=== PATIENT | female | born 1965 | race Caucasian/White ===

== ENCOUNTER 2019-05-17 00:09 | Inpatient (IN) | payer BC ==
[2019-05-17] VITALS (9 sets, daily range): BP systolic 78–119; BP diastolic 29–59
[~2019-05-17] VITALS: Ht 165.1 cm; Wt 63.5 kg
--- NOTE | 2019-05-17 00:13 | NUR ---
DR ZARAGOZA at bedside for MSE.
[2019-05-17] MEDS ORDERED: IV NORMAL SALINE 1000 ML BAG IV ONE (00:15)
[2019-05-17] MEDS ORDERED: HALOPERIDOL LACTATE 5 MG/1 ML VIAL IV ONE (00:30)
[2019-05-17] MEDS ORDERED: HALOPERIDOL LACTATE 5 MG/1 ML VIAL ONE (00:37)
[2019-05-17 01:18] LABS: ETHANOL < 3 MG/DL (0-0)
[2019-05-17 01:24] LABS: WHITE BLOOD COUNT (AUTO) 11.6 K/UL (4.0-11.2)
[2019-05-17 01:25] LABS: HEMATOCRIT 24.1 % (37-47); HEMOGLOBIN 8.2 G/DL (12.0-16.0); MEAN CORPUSCULAR HEMOGLOBIN 35.2 UUG (27.0-31.0); MEAN CORPUSCULAR HGB CONC 34 g/dL (32.0-37.0); MEAN CORPUSCULAR VOLUME 103.7 FL (81.0-99.0); PLATELET COUNT (AUTO) 286 K/UL (150-450); RED BLOOD CELL COUNT(AUTO) 2.32 MIL/UL (4.2-5.4)
[2019-05-17 01:26] LABS: BASOPHILS # (AUTO) 0.1 K/uL (0.0-8.0); BASOPHILS % (AUTO) 0.8 % (0.0-2.0); EOSINOPHILS % (AUTO) 0.1 % (0.0-7.0); LYMPHOCYTES # (AUTO) 2.3 K/UL (0.8-4.8); LYMPHOCYTES % (AUTO) 20.2 % (20.5-51.5); MONOCYTES # (AUTO) 1.6 K/UL (0.1-1.30); MONOCYTES % (AUTO) 13.6 % (0.0-11.0); NEUTROPHILS # (AUTO) 7.6 K/UL (1.8-8.9); NEUTROPHILS % (AUTO) 65.3 % (38.5-71.5)
[2019-05-17] MEDS ORDERED: CLON0.5T4 PO (01:26)
[2019-05-17] MEDS ORDERED: HYDR-500 PO (01:26)
[2019-05-17] MEDS ORDERED: SPIR50TA5 PO (01:26)
[2019-05-17] MEDS ORDERED: LACT10SO PO (01:26)
[2019-05-17] MEDS ORDERED: FURO40TA5 PO (01:26)
[2019-05-17 01:27] LABS: THYROID STIMULATING HORMONE 1.005 mIU/mL (0.358-3.740)
[2019-05-17 01:43] LABS: CARBON DIOXIDE 21 mmol/L (21-32); CHLORIDE 108 mmol/L (98-107); POTASSIUM 5.6 mmol/L (3.5-5.1)
[2019-05-17] MEDS ORDERED: LACTULOSE 20 G/30 ML LIQUID UDC ONE ×2 (01:43→02:21)
[2019-05-17 01:44] LABS: BILIRUBIN,DIRECT 2.1 mg/dL (0.0-0.2); BILIRUBIN,TOTAL 4.6 mg/dL (0.1-1.0); CREATININE 1.7 mg/dL (0.6-1.3); GLUCOSE 132 mg/dL (74-106)
[2019-05-17 01:45] LABS: ACETAMINOPHEN < 2.0 ug/mL (10-30); ALANINE AMINOTRANSFERASE 28 U/L (14-59); ALKALINE PHOSPHATASE 147 U/L (50-136); ASPARTATE AMINOTRANSFERASE 43 U/L (15-37); TOTAL PROTEIN, SERUM 6.5 g/dL (6.4-8.2)
[2019-05-17] MEDS ORDERED: LACTULOSE 20 G/30 ML LIQUID UDC PO ONE (01:45)
[2019-05-17 01:47] LABS: UREA NITROGEN, BLOOD 96 mg/dL (7-20)
--- NOTE | 2019-05-17 01:47 | NUR ---
CRITICAL VALUE: BUN VALUE 96 BY NEELIMA (LAB)
[2019-05-17 01:55] LABS: *OCCULT BLOOD STOOL POSITIVE (NEGATIVE); *URINE HCG, QUAL NEGATIVE (NEGATIVE)
[2019-05-17 02:01] LABS: *CLARITY,URINE HAZY (CLEAR); *COLOR,URINE AMBER (YELLOW)
[2019-05-17 02:02] LABS: *BILIRUBIN,URIN 2+ (NEGATIVE); *BLOOD, URINE NEGATIVE (NEGATIVE); *KETONES,URINE TRACE (NEGATIVE); LEUKOCYTE ESTERASE ,URINE NEGATIVE (NEGATIVE); NITRITE, URINE NEGATIVE (NEGATIVE); UGLUCOSE NEGATIVE (NEGATIVE)
--- NOTE | 2019-05-17 02:02 | NUR ---
Pt sent down for CT
[2019-05-17 02:03] LABS: BACTERIA,URINE NONE SEEN /HPF (NONE SEEN); RBC,URINE NONE SEEN /HPF (0-3); SQUAMOUS EPITHELIAL CELL,UR FEW /HPF (NONE SEEN); URIC ACID CRYSTALS,URINE MODERATE /HPF (NONE SEEN); WBC,URINE NONE SEEN /HPF (0-3)
[2019-05-17 02:10] LABS: *AMPHETAMINE, URINE NEGATIVE (NEGATIVE); *BARBITURATE, URINE NEGATIVE (NEGATIVE); *CANNABINOID, URINE POSITIVE (NEGATIVE); *COCCAINE, URINE NEGATIVE (NEGATIVE); *OPIATE, URINE NEGATIVE (NEGATIVE); *PHENCYCLIDINE SCREEN,URINE NEGATIVE (NEGATIVE)
--- NOTE | 2019-05-17 02:12 | NUR ---
Pt back from CT, BP 101/60 HR 100 O2 97% RR 18
[2019-05-17] MEDS ORDERED: LACTULOSE 20 G/30 ML LIQUID UDC PR ONE (02:15)
[2019-05-17] MEDS ORDERED: PANTOPRAZOLE SODIUM IV 80 MG in IV DEXTROSE 5% 100 ML IV ONE (02:15)
[2019-05-17] MEDS ORDERED: PANTOPRAZOLE SODIUM 40 MG VIAL ONE (02:15)
[2019-05-17] MEDS ORDERED: IV D5/ 0.9% NACL 1,000 ML IV ONE (02:25)
[2019-05-17] MEDS ORDERED: ACETAMINOPHEN 325 MG TABLET PO PRN (02:45)
[2019-05-17] MEDS ORDERED: ONDANSETRON 4 MG/2 ML VIAL IV PRN (02:45)
[2019-05-17] MEDS ORDERED: Z GUARD REMEDY PASTE 57 GM TUBE TOP PRN (02:45)
[2019-05-17] MEDS ORDERED: MAGNESIUM HYDROXIDE 30 ML LIQUID UDC PO PRN (02:45)
[2019-05-17] MEDS ORDERED: HYDROCODONE/APAP 5-325MG TABLET PO PRN (02:45)
[2019-05-17] MEDS ORDERED: IV NS 1000 ML 1,000 ML IV SCH (02:45)
--- NOTE | 2019-05-17 03:03 | NUR ---
Pt. admitted to TELE UNIT , under care of Dr. SERVIN Belongs List completed. VSS, AFEBRILE. Pt appears comfortable and resting. No acute distress noted. Family at bedside.
--- NOTE | 2019-05-17 04:45 | NUR ---
Paged dr Barraza about Lactic acid value 2.4. Waiting for a call back.
--- NOTE | 2019-05-17 05:51 | NUR ---
Dr Barraza called back, notified of SBP below 80 and lactic acid 2.4. Ordered to bolus 1000ml NS
[2019-05-17] MEDS ORDERED: IV NS 1000 ML 1,000 ML IV ONE (06:00)
[2019-05-17] MEDS ORDERED: FUROSEMIDE 40 MG TABLET PO SCH (09:00)
[2019-05-17] MEDS ORDERED: SPIRONOLACTONE 50 MG TABLET PO SCH (09:00)
[2019-05-17] MEDS ORDERED: LACTULOSE 20 G/30 ML LIQUID UDC PR SCH (09:00)
[2019-05-17] MEDS ORDERED: CLONAZEPAM 0.5 MG TABLET PO SCH (09:00)
[2019-05-17] MEDS ORDERED: IRR STERIL WATER FOR IRR 700 ML, LACTULOSE 200 G PR ONE ×2 (09:00)
[2019-05-17 09:54] LABS: HEMATOCRIT 21.9 % (37-47)
[2019-05-17 09:55] LABS: HEMOGLOBIN 7.4 G/DL (12.0-16.0)
--- NOTE | 2019-05-17 10:00 | NUR ---
RECEIVED CRITICAL LABS FOR HGB OF 7.4 AND HCT 21.9. CALLED WITH ORDERS TO REPEAT HGB AND HCT.
[2019-05-17] MEDS ORDERED: ACETAMINOPHEN 650 MG SUPP.RECT RC PRN (11:30)
[2019-05-17 11:50] LABS: LIPASE 347 U/L (73-393)
[2019-05-17 11:54] LABS: IRON, SERUM 205 ug/dL (50-175)
[2019-05-17] MEDS: IV D5/ 0.9% NACL 1,000 ML IV PRN (12:00)
[2019-05-17] MEDS: PANTOPRAZOLE SODIUM 40 MG VIAL IV SCH (12:16)
[2019-05-17 12:32] LABS: POTASSIUM 4.3 mmol/L (3.5-5.1)
[2019-05-17 12:36] LABS: HEMOGLOBIN 7.1 G/DL (12.0-16.0)
[2019-05-17 12:39] LABS: HEMATOCRIT 20.9 % (37-47)
[2019-05-17 12:42] LABS: POTASSIUM 4.5 mmol/L (3.5-5.1)
[2019-05-17 12:43] LABS: CREATININE 1.3 mg/dL (0.6-1.3)
--- NOTE | 2019-05-17 13:00 | NUR ---
RECEIVED CRITICAL LABS FOR HGB OF 7.1 AND HCT 20.9. CALLED WITH ORDERS OF 1 UNIT OF PRBC.
[2019-05-17] MEDS ORDERED: FUROSEMIDE 20 MG/2 ML VIAL IV PRN (14:45)
[2019-05-17] MEDS: IRR STERIL WATER FOR IRR 700 ML, LACTULOSE 200 G PR SCH ×4 (14:58→22:59)
[2019-05-17 15:14] LABS: *CLARITY,URINE CLEAR (CLEAR); *COLOR,URINE DARK YELLOW (YELLOW)
[2019-05-17 15:15] LABS: *BILIRUBIN,URIN NEGATIVE (NEGATIVE); *BLOOD, URINE 1+ (NEGATIVE); *KETONES,URINE NEGATIVE (NEGATIVE); LEUKOCYTE ESTERASE ,URINE NEGATIVE (NEGATIVE); NITRITE, URINE NEGATIVE (NEGATIVE); UGLUCOSE NEGATIVE (NEGATIVE)
[2019-05-17 15:33] LABS: *CREATININE,URINE 96.4 mg/dL (30-125)
[2019-05-17 15:43] LABS: BACTERIA,URINE FEW /HPF (NONE SEEN); MUCUS,URINE FEW /LPF (0-FEW); SQUAMOUS EPITHELIAL CELL,UR MODERATE /HPF (NONE SEEN); WBC,URINE 0-3 /HPF (0-3)
--- NOTE | 2019-05-17 18:14 | NUR ---
PATIENT IN BED , MORE ALERT, WILL CONTINUE TO MONITOR. IV INTACT AND PATENT . KEPT CLEAN AND DRY AT ALL TIMES. SAFETY AND COMFORT PROVIDED. WILL CONTINUE TO MONITOR.
--- NOTE | 2019-05-17 18:55 | NUR ---
CONTINUE TO WAIT FOR THE BLOOD FOR BLOOD TRANSFUSION FROM LAB.
--- NOTE | 2019-05-17 21:10 | NUR ---
Blood transfusion started at 2050, no A/R noted, VS WNL, no SOB noted, BT tolerated. Will continue to monitor
[2019-05-18 00:06] VITALS: BP 121/55
--- NOTE | 2019-05-18 00:10 | NUR ---
1 unit of PRBC transfused, no A/R noted. VS WNL, no SOB noted. Will continue to monitor
[2019-05-18 00:16] VITALS: BP 121/55
[2019-05-18 04:54] VITALS: BP 92/52
[2019-05-18] MEDS: IV D5/ 0.9% NACL 1,000 ML IV PRN ×2 (05:46→18:53)
[2019-05-18] MEDS: IRR STERIL WATER FOR IRR 700 ML, LACTULOSE 200 G PR SCH ×2 (05:46)
[2019-05-18 06:35] LABS: RED BLOOD CELL COUNT(AUTO) 2.27 MIL/UL (4.2-5.4); WHITE BLOOD COUNT (AUTO) 12.6 K/UL (4.0-11.2)
[2019-05-18 06:36] LABS: BASOPHILS % (AUTO) 1.2 % (0.0-2.0); EOSINOPHILS % (AUTO) 1.8 % (0.0-7.0); LYMPHOCYTES # (AUTO) 3.1 K/UL (0.8-4.8); LYMPHOCYTES % (AUTO) 24.9 % (20.5-51.5); MEAN CORPUSCULAR HEMOGLOBIN 35.4 UUG (27.0-31.0); MEAN CORPUSCULAR HGB CONC 34 g/dL (32.0-37.0); MEAN CORPUSCULAR VOLUME 105.5 FL (81.0-99.0); MONOCYTES # (AUTO) 2.2 K/UL (0.1-1.30); MONOCYTES % (AUTO) 17.1 % (0.0-11.0); NEUTROPHILS # (AUTO) 6.9 K/UL (1.8-8.9); PLATELET COUNT (AUTO) 250 K/UL (150-450)
[2019-05-18 06:37] LABS: BASOPHILS # (AUTO) 0.2 K/uL (0.0-8.0); EOSINOPHILS # (AUTO) 0.2 K/uL (0.0-0.7)
--- NOTE | 2019-05-18 06:45 | NUR ---
Patient noted more alert this morning asking why she's in the hosp and who brought her here. Re-oriented patient regarding his condition. Lactulose enema given as ordered noted w/ 4 loose BM this shift. All needs attended. Will endorse accordingly
--- NOTE | 2019-05-18 07:30 | NUR ---
Awake, alert, oriented to name, slow in response, but able to verbalized needs appropriately. She's asking for water, will clarify diet. IVF infusing well. Bed alarm on
[2019-05-18] MEDS: PANTOPRAZOLE SODIUM 40 MG VIAL IV SCH (08:56)
[2019-05-18 09:02] LABS: BILIRUBIN,TOTAL 5.9 mg/dL (0.2-1.0); PHOSPHOROUS 5.3 mg/dL (2.5-4.9); POTASSIUM 3.5 mmol/L (3.5-5.1)
[2019-05-18 09:06] LABS: MAGNESIUM 2.1 mg/dL (1.8-2.4); TOTAL PROTEIN, SERUM 6.3 g/dL (6.4-8.2)
[2019-05-18 11:11] VITALS: BP 99/49
--- NOTE | 2019-05-18 11:30 | NUR ---
Spoke with Dr. Gallo informed of patient's condition, patient with dark brown soft stool. Lactulose changed to po. Ultrasound of the abdomen done no fluid/ascites noted, paracentesis not done. Started on clear liquids diet. Assistance during feeding, noted patient may fall asleep and aspiration risk.
[2019-05-18] MEDS: RIFAXIMIN 550 MG TABLET PO SCH ×2 (12:24→20:40)
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
[2019-05-18 13:08] LABS: BASOPHILS % (MANUAL) 1 % (0-2); EOSINOPHILS % (MANUAL) 2 % (0-8); LYMPHOCYTES % (MANUAL) 29 % (20-40); METAMYELOCYTES % 1 % (0-1); MONOCYTES % (MANUAL) 13 % (2-10); NEUTROPHILS % (MANUAL) 54 % (42-75)
[2019-05-18] MEDS: LACTULOSE 20 G/30 ML LIQUID UDC PO SCH ×2 (15:00→21:00)
[2019-05-18 15:11] VITALS: BP 101/51
--- NOTE | 2019-05-18 15:50 | NUR ---
Awake, but confused and restless. Dr. Yen seen patient with orders. Ativan to be given
[2019-05-18] MEDS: THIAMINE HCL 100 MG TABLET PO SCH (16:17)
[2019-05-18] MEDS: FOLIC ACID 1 MG TABLET PO SCH (16:17)
[2019-05-18] MEDS: LORAZEPAM 2 MG/1 ML VIAL IV PRN ×2 (16:17→23:04)
[2019-05-18] MEDS: MULTIVITAMINS,THERAPEUTIC TABLET PO SCH (16:17)
--- NOTE | 2019-05-18 18:00 | NUR ---
Eating dinner with family at bedside. Free from fall or injury.
--- NOTE | 2019-05-18 20:00 | NUR ---
Received patient in bed asleep but arousable. No c/o pain at this time. F/C intact draining qiana color urine. Safety measures observed. Call light in reach
[2019-05-18 20:08] VITALS: BP 112/70
[2019-05-18] MEDS: MORPHINE SULFATE 2 MG/1 ML DISP.SYRIN IV PRN (23:47)
[2019-05-19] VITALS: BP 110/62
[2019-05-19 04:00] VITALS: BP 105/52
[2019-05-19] MEDS: LACTULOSE 20 G/30 ML LIQUID UDC PO SCH ×3 (05:47→21:09)
[2019-05-19 05:55] LABS: BASOPHILS # (AUTO) 0.1 K/uL (0.0-8.0); BASOPHILS % (AUTO) 0.9 % (0.0-2.0); EOSINOPHILS # (AUTO) 0.4 K/uL (0.0-0.7); EOSINOPHILS % (AUTO) 3.4 % (0.0-7.0); HEMOGLOBIN 8.3 g/dL (10.9-14.3); LYMPHOCYTES # (AUTO) 4.4 K/uL (20.0-40.0); LYMPHOCYTES % (AUTO) 40.9 % (20.5-51.5); MEAN CORPUSCULAR HEMOGLOBIN 36.4 uug (24.7-32.8); MEAN CORPUSCULAR HGB CONC 34 g/dL (32.3-35.6); MEAN CORPUSCULAR VOLUME 105.9 fL (75.5-95.3); MONOCYTES # (AUTO) 1.9 K/uL (2.0-10.0); MONOCYTES % (AUTO) 17.7 % (0.0-11.0); NEUTROPHILS % (AUTO) 37.1 % (38.5-71.5); PLATELET COUNT (AUTO) 250 K/uL (179-408); WHITE BLOOD COUNT (AUTO) 10.8 K/uL (3.8-11.8)
--- NOTE | 2019-05-19 06:10 | NUR ---
Patient AAOx1, able to make needs known. Inn acute distress. Denies any further back pain. No SOB. IV site on left hand intact and patent. IVF infusing. NSR on tele at 95/min. Peck catheter intact and draining via gravity. Safety measure maintained and call hogan within reached.
[2019-05-19 06:12] LABS: BILIRUBIN,TOTAL 3.7 mg/dL (0.2-1.0); CREATININE 0.8 mg/dL (0.6-1.3); MAGNESIUM 1.6 mg/dL (1.8-2.4); PHOSPHOROUS 3.4 mg/dL (2.5-4.9); TOTAL PROTEIN, SERUM 6.2 g/dL (6.4-8.2)
[2019-05-19 06:29] LABS: RED BLOOD CELL COUNT(AUTO) 2.27 MIL/uL (3.63-4.92)
[2019-05-19 07:33] LABS: EOSINOPHILS % (MANUAL) 7 % (0-8); LYMPHOCYTES % (MANUAL) 35 % (20-40); MONOCYTES % (MANUAL) 13 % (2-10); NEUTROPHILS % (MANUAL) 45 % (42-75)
--- NOTE | 2019-05-19 07:58 | NUR ---
Received pt. resting in bed pt. alert oriented x3 able to make needs known. Pt. has IV in L hand 22 gauge intact patent running prescribed fluids. Pt. on tele monitor HR 88. Pt. has godfrey catheter in draining. Pt. states she does not want her R wrist wound changed with silverdein and bordered gauze. She says her people will bring in her own treatment she received. Educated pt. on risks and benefits. Pt. still refused. Safety measures in place. call light within reach. Will continue to monitor pt.
[2019-05-19] MEDS: THIAMINE HCL 100 MG TABLET PO SCH (08:04)
[2019-05-19] MEDS: FOLIC ACID 1 MG TABLET PO SCH (08:04)
[2019-05-19] MEDS: PANTOPRAZOLE SODIUM 40 MG VIAL IV SCH (08:04)
[2019-05-19] MEDS: RIFAXIMIN 550 MG TABLET PO SCH ×2 (08:04→20:14)
[2019-05-19] MEDS: MULTIVITAMINS,THERAPEUTIC TABLET PO SCH (08:04)
[2019-05-19] MEDS: SILVER SULFADIAZINE 1% CREAM 50 GM TP SCH ×2 (08:15→14:28)
[2019-05-19] MEDS ORDERED: MAGNESIUM SULFATE/D5W 100 ML IV SCH (09:30)
[2019-05-19] MEDS: IV D5/ 0.9% NACL 1,000 ML IV PRN (10:11)
[2019-05-19] MEDS ORDERED: MAGNESIUM OXIDE 400 MG TABLET PO ONE (10:30)
[2019-05-19] MEDS: POTASSIUM CHLORIDE 50 ML IV SCH ×2 (11:47→13:44)
[2019-05-19 11:58] LABS: BASOPHILS # (AUTO) 0.1 K/uL (0.0-8.0); BASOPHILS % (AUTO) 1.1 % (0.0-2.0); EOSINOPHILS # (AUTO) 0.4 K/uL (0.0-0.7); EOSINOPHILS % (AUTO) 3.6 % (0.0-7.0); HEMATOCRIT 24.6 % (31.2-41.9); HEMOGLOBIN 8.3 g/dL (10.9-14.3); LYMPHOCYTES # (AUTO) 3.9 K/uL (20.0-40.0); LYMPHOCYTES % (AUTO) 35.2 % (20.5-51.5); MEAN CORPUSCULAR HEMOGLOBIN 35.8 uug (24.7-32.8); MEAN CORPUSCULAR HGB CONC 34 g/dL (32.3-35.6); MEAN CORPUSCULAR VOLUME 105.9 fL (75.5-95.3); MONOCYTES # (AUTO) 2.2 K/uL (2.0-10.0); MONOCYTES % (AUTO) 19.8 % (0.0-11.0); NEUTROPHILS # (AUTO) 4.4 K/uL (1.8-8.9); NEUTROPHILS % (AUTO) 40.3 % (38.5-71.5); PLATELET COUNT (AUTO) 254 K/uL (179-408)
[2019-05-19 12:00] LABS: RED BLOOD CELL COUNT(AUTO) 2.32 MIL/uL (3.63-4.92)
[2019-05-19 12:02] LABS: NEUTROPHILS % (MANUAL) 0 % (42-75)
[2019-05-19 12:03] VITALS: BP 109/64
[2019-05-19] MEDS ORDERED: POTASSIUM CHLORIDE 50 ML IV SCH (14:00)
--- NOTE | 2019-05-19 14:28 | NUR ---
Pt. agreed to wound care change but wanted to use her own bandages. Cleaned w NS, dried, applied prescribed cream, and covered with pt.'s own bandage.
[2019-05-19 15:09] VITALS: BP 109/61
[2019-05-19] MEDS: MORPHINE SULFATE 2 MG/1 ML DISP.SYRIN IV PRN (15:17)
[2019-05-19] MEDS ORDERED: POTASSIUM CHLORIDE 20 MEQ TAB.PRT.SR PO ONE ×2 (15:30→16:00)
--- NOTE | 2019-05-19 15:30 | NUR ---
Pt. reported burning at IV site from K. Administered 2 bags of K. Asked SWIM COACH harshad for PO K. SWIM COACH Agreed. Put in new order. Will administer PO K
[2019-05-19 20:00] VITALS: BP 110/70
[2019-05-19] MEDS: LORAZEPAM 2 MG/1 ML VIAL IV PRN (21:57)
[2019-05-20 00:33] VITALS: BP 120/74
[2019-05-20] MEDS: IV D5/ 0.9% NACL 1,000 ML IV PRN (03:35)
[2019-05-20 04:00] VITALS: BP 105/61
[2019-05-20] MEDS: LACTULOSE 20 G/30 ML LIQUID UDC PO SCH (05:36)
--- NOTE | 2019-05-20 05:40 | NUR ---
Pt remains up in bed, AxO x3, easily arousable. Continuous IVF running. F/C in place. SR on monitor with HR 91. No acute distress noted. Pt refused wound treatment order and insisted on using her own wound care treatment and bandages. Discussed the risks and benefits of wound care, but pt still refused. Cleansed with NS, pat dry, hydrogen peroxide, prescribed cream applied, and placed pt's own bandage for protection. Scant amount of green to yellow drainage noted. Dressing clean and intact. Will continue plan of care.
[2019-05-20 07:50] LABS: BASOPHILS # (AUTO) 0.1 K/uL (0.0-8.0); EOSINOPHILS # (AUTO) 0.4 K/uL (0.0-0.7); EOSINOPHILS % (AUTO) 4.6 % (0.0-7.0); LYMPHOCYTES % (AUTO) 31.7 % (20.5-51.5); MEAN CORPUSCULAR HEMOGLOBIN 36.7 uug (24.7-32.8); MEAN CORPUSCULAR HGB CONC 35 g/dL (32.3-35.6); MEAN CORPUSCULAR VOLUME 106.2 fL (75.5-95.3); MONOCYTES # (AUTO) 1.8 K/uL (2.0-10.0); MONOCYTES % (AUTO) 19.2 % (0.0-11.0); NEUTROPHILS # (AUTO) 4.2 K/uL (1.8-8.9); NEUTROPHILS % (AUTO) 43.5 % (38.5-71.5); PLATELET COUNT (AUTO) 256 K/uL (179-408); WHITE BLOOD COUNT (AUTO) 9.6 K/uL (3.8-11.8)
[2019-05-20 07:54] LABS: RED BLOOD CELL COUNT(AUTO) 2.16 MIL/uL (3.63-4.92)
[2019-05-20 08:01] LABS: BILIRUBIN,TOTAL 2.5 mg/dL (0.2-1.0); CREATININE 0.7 mg/dL (0.6-1.3); MAGNESIUM 1.5 mg/dL (1.8-2.4); PHOSPHOROUS 3.4 mg/dL (2.5-4.9); POTASSIUM 3.3 mmol/L (3.5-5.1); TOTAL PROTEIN, SERUM 5.9 g/dL (6.4-8.2)
[2019-05-20] MEDS: THIAMINE HCL 100 MG TABLET PO SCH (08:12)
[2019-05-20] MEDS: SILVER SULFADIAZINE 1% CREAM 50 GM TP SCH (08:12)
[2019-05-20] MEDS: PANTOPRAZOLE SODIUM 40 MG VIAL IV SCH (08:12)
[2019-05-20] MEDS: FOLIC ACID 1 MG TABLET PO SCH (08:12)
[2019-05-20] MEDS: MULTIVITAMINS,THERAPEUTIC TABLET PO SCH (08:12)
[2019-05-20] MEDS: RIFAXIMIN 550 MG TABLET PO SCH (08:12)
[2019-05-20 10:38] LABS: EOSINOPHILS % (MANUAL) 3 % (0-8); LYMPHOCYTES % (MANUAL) 37 % (20-40); MONOCYTES % (MANUAL) 19 % (2-10); NEUTROPHILS % (MANUAL) 41 % (42-75)
[2019-05-20] MEDS ORDERED: LACTULOSE 20 G/30 ML LIQUID UDC PO SCH (11:15)
[2019-05-20 11:40] VITALS: BP 107/67
[2019-05-20] MEDS ORDERED: THIA100T13 PO (12:20)
[2019-05-20] MEDS ORDERED: Folic Acid PO (12:20)
[2019-05-20] MEDS ORDERED: MULT-24 PO (12:20)
[2019-05-20] MEDS ORDERED: PANT40TA2 PO (12:20)
[2019-05-20] MEDS ORDERED: LACT10SO7 PO (12:20)
[2019-05-20] MEDS ORDERED: RIFA550T PO (12:20)
[2019-05-20] MEDS ORDERED: POTASSIUM CHLORIDE 20 MEQ TAB.PRT.SR PO ONE (12:30)
[2019-05-20] MEDS ORDERED: MAGNESIUM OXIDE 400 MG TABLET PO ONE (12:30)
--- NOTE | 2019-05-20 12:41 | NUR ---
Peck catheter removed per Suki JACOBS.
--- NOTE | 2019-05-20 13:59 | NUR ---
Patient ambulatory, no distress noted. IV access and ID band removed. Discharge instructions reviewed with patient and son Tien at bedside, verbalized understanding. Medication scripts sent electronically to [facility] (preferred pharmacy) in [place]. Wound photo of right wrist taken and placed in paper chart. Wound care done today. Peck catheter removed. No s/s of bleeding, H&H stable. Instructed to follow up with GI as outpatient. Patient states she already has an appointment the following and will follow up for EGD. Magnesium and potassium replaced. Belongings accounted for.
== END 2019-05-20 14:00 | disposition home or self-care (01) | DRG 432 ==
LOC: ER 00:09 → TELE3 02:59
PROVIDERS: ADMIT Family Medicine; ATTEND Internal Medicine
PROC: 30233N1 Transfusion of Nonautologous Red Blood Cells into Peripheral Vein, Percutaneous Approach (ICD-10-PCS; principal; 2019-05-17)
DX: K70.40 Alcoholic hepatic failure without coma (principal); N17.0 Acute kidney failure with tubular necrosis; E43 Unspecified severe protein-calorie malnutrition; D62 Acute posthemorrhagic anemia; E87.2 Acidosis; K76.6 Portal hypertension; J98.11 Atelectasis; K92.1 Melena; E87.5 Hyperkalemia; Y90.0 Blood alcohol level of less than 20 mg/100 ml; E86.0 Dehydration; F10.20 Alcohol dependence, uncomplicated; K70.31 Alcoholic cirrhosis of liver with ascites; D72.829 Elevated white blood cell count, unspecified; E77.8 Other disorders of glycoprotein metabolism; E87.6 Hypokalemia; F17.210 Nicotine dependence, cigarettes, uncomplicated; F12.90 Cannabis use, unspecified, uncomplicated; G31.9 Degenerative disease of nervous system, unspecified; R00.0 Tachycardia, unspecified; R40.2142 Coma scale, eyes open, spontaneous, at arrival to emergency department; R40.2242 Coma scale, best verbal response, confused conversation, at arrival to emergency department; R40.2362 Coma scale, best motor response, obeys commands, at arrival to emergency department
CPT/HCPCS: 36415; 70030-TC; 70450; 71045; 76705; 80307; 83550; 83605; 83690; 83735; 84100; 84132; 84300; 84443; 84703; 85018; 85025; 85730; 86850; 86900; 86901; 86920; 87040; 93005; A4217; A4663; C1758; C9113; G0378; G0480; G0480-TC; J1630; J1940; J2060; J2270; J3475; J3480; J7030; J7042; J7050; J7060; P9016-BL; P9021

== ENCOUNTER 2019-05-20 21:21 | Inpatient (IN) | payer BC ==
[~2019-05-20] VITALS: Ht 170.2 cm; Wt 86.6 kg
[~2019-05-20 21:21] MED LIST: CLON0.5T4 PO; FURO40TA5 PO; Folic Acid PO; HYDR-500 PO; LACT10SO PO; LACT10SO7 PO; MULT-24 PO; PANT40TA2 PO; RIFA550T PO; SPIR50TA5 PO; THIA100T13 PO
--- NOTE | 2019-05-20 21:35 | NUR ---
patient brought in from home. Patient was brought in by and son who is at bedside. per family, patient has been confused and unsteady. Family noted that patient has had a change in condition with altered mental status.
[2019-05-20 22:16] LABS: BASOPHILS # (AUTO) 0.1 K/uL (0.0-8.0); BASOPHILS % (AUTO) 0.9 % (0.0-2.0); EOSINOPHILS # (AUTO) 0.2 K/uL (0.0-0.7); EOSINOPHILS % (AUTO) 1.4 % (0.0-7.0); HEMATOCRIT 27.7 % (31.2-41.9); HEMOGLOBIN 9.2 g/dL (10.9-14.3); LYMPHOCYTES # (AUTO) 3.2 K/uL (20.0-40.0); LYMPHOCYTES % (AUTO) 22.1 % (20.5-51.5); MEAN CORPUSCULAR HEMOGLOBIN 35.4 uug (24.7-32.8); MEAN CORPUSCULAR HGB CONC 33 g/dL (32.3-35.6); MEAN CORPUSCULAR VOLUME 107.1 fL (75.5-95.3); MONOCYTES # (AUTO) 2.5 K/uL (2.0-10.0); MONOCYTES % (AUTO) 17.1 % (0.0-11.0); NEUTROPHILS # (AUTO) 8.5 K/uL (1.8-8.9); NEUTROPHILS % (AUTO) 58.5 % (38.5-71.5); PLATELET COUNT (AUTO) 337 K/uL (179-408); RED BLOOD CELL COUNT(AUTO) 2.59 MIL/uL (3.63-4.92); WHITE BLOOD COUNT (AUTO) 14.6 K/uL (3.8-11.8)
[2019-05-20 22:33] LABS: CARBON DIOXIDE 19 mmol/L (21-32); CHLORIDE 106 mmol/L (98-107); CREATININE 0.9 mg/dL (0.6-1.3); GLUCOSE 98 mg/dL (74-106); UREA NITROGEN, BLOOD 16 mg/dL (7-18)
[2019-05-20 22:46] LABS: ETHANOL < 3 MG/DL (0-0)
[2019-05-20 22:50] LABS: ALANINE AMINOTRANSFERASE 41 U/L (14-59); ALKALINE PHOSPHATASE 114 U/L (50-136); ASPARTATE AMINOTRANSFERASE 54 U/L (15-37); BILIRUBIN,DIRECT 1.5 mg/dL (0.0-0.2); BILIRUBIN,TOTAL 3.6 mg/dL (0.2-1.0); TOTAL PROTEIN, SERUM 7.3 g/dL (6.4-8.2)
--- NOTE | 2019-05-20 22:50 | NUR ---
called [facility] for panel call.
[2019-05-20 22:52] LABS: BAND % (MANUAL) 1 % (0-10); EOSINOPHILS % (MANUAL) 1 % (0-8); LYMPHOCYTES % (MANUAL) 29 % (20-40); MONOCYTES % (MANUAL) 12 % (2-10); NEUTROPHILS % (MANUAL) 57 % (42-75)
--- NOTE | 2019-05-20 23:07 | NUR ---
urine sent to lab. Dr. Baldwin on the phone with REYNALDO Perez
[2019-05-20] MEDS ORDERED: LORAZEPAM 2 MG/1 ML VIAL ONE (23:12)
[2019-05-20] MEDS ORDERED: Z GUARD REMEDY PASTE 57 GM TUBE TOP PRN (23:15)
[2019-05-20] MEDS ORDERED: LORAZEPAM 2 MG/1 ML VIAL IV ONE (23:15)
[2019-05-20] MEDS ORDERED: ONDANSETRON 4 MG/2 ML VIAL IV PRN (23:15)
[2019-05-20] MEDS ORDERED: MAGNESIUM HYDROXIDE 30 ML LIQUID UDC PO PRN (23:15)
[2019-05-20 23:19] LABS: *BLOOD, URINE 2+ (NEGATIVE); *COLOR,URINE YELLOW (YELLOW); *KETONES,URINE TRACE (NEGATIVE); *UROBILINOGEN,URINE 0.2 E.U./dl (NORMAL); LEUKOCYTE ESTERASE ,URINE 1+ (NEGATIVE); NITRITE, URINE POSITIVE (NEGATIVE); UGLUCOSE NEGATIVE (NEGATIVE)
[2019-05-20 23:21] LABS: *BILIRUBIN,URIN 1+ (NEGATIVE); *CLARITY,URINE SLIGHTLY CLOUDY (CLEAR)
--- NOTE | 2019-05-20 23:24 | NUR ---
patient taken down for CT
--- NOTE | 2019-05-20 23:29 | NUR ---
gave report to Mikel Crooks.
[2019-05-20 23:35] LABS: *AMPHETAMINE, URINE NEGATIVE (NEGATIVE); *BARBITURATE, URINE NEGATIVE (NEGATIVE); *CANNABINOID, URINE NEGATIVE (NEGATIVE); *COCCAINE, URINE NEGATIVE (NEGATIVE); *OPIATE, URINE NEGATIVE (NEGATIVE); *PHENCYCLIDINE SCREEN,URINE NEGATIVE (NEGATIVE)
[2019-05-20 23:43] LABS: BACTERIA,URINE MANY /HPF (NONE SEEN); RBC,URINE 20-50 /HPF (0-3); SQUAMOUS EPITHELIAL CELL,UR MANY /HPF (NONE SEEN); WBC,URINE 80-100 /HPF (0-3)
[2019-05-21] MEDS ORDERED: CEFTRIAXONE 1 G VIAL IM SCH
--- NOTE | 2019-05-21 00:14 | NUR ---
patient transferred to tele unit via [place] with RN Lis Stevenson. patient in stbale condition for transfer.
[2019-05-21] MEDS: IV NS 1000 ML 1,000 ML IV PRN ×2 (00:18→22:44)
[2019-05-21] MEDS ORDERED: VANCOMYCIN IV 1,000 MG in IV DEXTROSE 5% 250 ML IV SCH (00:30)
--- NOTE | 2019-05-21 00:30 | NUR ---
Received patient from ED via gurney accompanied by Donna, ED RN and patient's and son. Patient transferred to bed safely and made comfortable. Noted patient is alert and oriented x 2. Patient kept verbalizing that she wants to go home and does not want to stay in the hospital, her and son explained to her that she needs to stay in the hospital tonight. Noted with IV access at the left AC, patent and intact. Will keep NPO as ordered. Will continue to monitor.
[2019-05-21] MEDS ORDERED: CEFTRIAXONE /D5W 50ML IVPB **ER PYXIS IV ONE (00:40)
[2019-05-21] MEDS ORDERED: PIPERACILLIN/TAZOBACTAM/D5W 100 ML IV ONE (00:41)
[2019-05-21] MEDS: ACETAMINOPHEN 325 MG TABLET PO PRN ×2 (00:49→20:14)
[2019-05-21] MEDS ORDERED: VANCOMYCIN IV 200 ML ONE (01:00)
[2019-05-21] MEDS: PIPERACILLIN SODIUM/TAZOBACTAM 3.375 G in IV DEXTROSE 5% 50 ML IV SCH ×5 (01:36→23:04)
[2019-05-21 01:41] VITALS: BP 114/57
[2019-05-21 04:48] VITALS: BP 95/55
--- NOTE | 2019-05-21 05:51 | NUR ---
Patient slept well throughout the night. Alert and oriented x 2. Noted had a febrile episode last night, prior to starting IV antibiotic, latest temperature is 99.6. Attempted this morning to change dressing and take a photo of wound on right wrist, however patient still refused. No complaints made. No other untoward events noted. Will endorse accordingly.
[2019-05-21 06:35] LABS: CREATININE 0.7 mg/dL (0.6-1.3); MAGNESIUM 1.5 mg/dL (1.8-2.4); PHOSPHOROUS 3.6 mg/dL (2.5-4.9); POTASSIUM 3.4 mmol/L (3.5-5.1)
[2019-05-21 06:41] LABS: BASOPHILS # (AUTO) 0.1 K/uL (0.0-8.0); EOSINOPHILS # (AUTO) 0.3 K/uL (0.0-0.7); MONOCYTES % (AUTO) 20.1 % (0.0-11.0)
[2019-05-21 06:42] LABS: BASOPHILS % (AUTO) 0.6 % (0.0-2.0); EOSINOPHILS % (AUTO) 2.3 % (0.0-7.0); HEMATOCRIT 21.7 % (31.2-41.9); LYMPHOCYTES # (AUTO) 3.4 K/uL (20.0-40.0); LYMPHOCYTES % (AUTO) 29.1 % (20.5-51.5); MEAN CORPUSCULAR HEMOGLOBIN 35.4 uug (24.7-32.8); MEAN CORPUSCULAR HGB CONC 34 g/dL (32.3-35.6); MEAN CORPUSCULAR VOLUME 104.8 fL (75.5-95.3); MONOCYTES # (AUTO) 2.4 K/uL (2.0-10.0); NEUTROPHILS # (AUTO) 5.7 K/uL (1.8-8.9); NEUTROPHILS % (AUTO) 47.9 % (38.5-71.5); PLATELET COUNT (AUTO) 252 K/uL (179-408); WHITE BLOOD COUNT (AUTO) 11.8 K/uL (3.8-11.8)
[2019-05-21 06:44] LABS: THYROID STIMULATING HORMONE 1.596 mIU/mL (0.358-3.740)
[2019-05-21 06:51] LABS: HEMOGLOBIN 7.3 g/dL (10.9-14.3); RED BLOOD CELL COUNT(AUTO) 2.07 MIL/uL (3.63-4.92)
[2019-05-21] MEDS ORDERED: PANTOPRAZOLE SODIUM 40 MG VIAL IV SCH (09:00)
[2019-05-21] MEDS ORDERED: Medication Not On Formulary EA ([Folic Acid] 1 MG) PO SCH (09:00)
[2019-05-21] MEDS: FOLIC ACID 1 MG TABLET PO SCH (09:10)
[2019-05-21] MEDS: PANTOPRAZOLE SODIUM 40 MG TABLET.DR PO SCH (09:10)
[2019-05-21] MEDS: MULTIVITAMINS,THERAPEUTIC TABLET PO SCH (09:10)
[2019-05-21] MEDS: LACTULOSE 20 G/30 ML LIQUID UDC PO SCH ×2 (09:11→17:23)
[2019-05-21 09:13] LABS: EOSINOPHILS % (MANUAL) 3 % (0-8); NEUTROPHILS % (MANUAL) 48 % (42-75)
[2019-05-21 09:14] LABS: LYMPHOCYTES % (MANUAL) 32 % (20-40); MONOCYTES % (MANUAL) 17 % (2-10)
[2019-05-21] MEDS: RIFAXIMIN 550 MG TABLET PO SCH ×2 (09:17→20:13)
[2019-05-21] MEDS: THIAMINE HCL 100 MG TABLET PO SCH (09:17)
--- NOTE | 2019-05-21 09:21 | NUR ---
Clinical pharmacy note(Vancomycin dosing per pharmacy) Subjective: To start Vancomycin dosing on this patient for suspected infection(spiked fever, catheter associated UTI per ER note) Objective: BUN/Scr 15/0.7 WBC 11.8 Temp 101.4 Ht 170.18cm Wt 71.214kg Assessment/Plan: Patient had Vancomycin 1 gram today at 0208(first dose). Will continue Vancomycin 1 garm IV q11hrs, starting today at 1300 and draw trough by 4th dose(ordered for tomorrow at 1030)for expected trough around 15. Will follow the level for further dosing.
[2019-05-21] MEDS ORDERED: RIFAXIMIN 550 MG TABLET PO SCH (11:15)
[2019-05-21 11:19] VITALS: BP 91/58
--- NOTE | 2019-05-21 11:30 | NUR ---
seen by dr mensah, spoke with the family regarding patient status. , agreed with plan of care.
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
[2019-05-21] MEDS: VANCOMYCIN IV 1,000 MG in IV DEXTROSE 5% 250 ML IV SCH ×2 (13:12→23:46)
[2019-05-21] MEDS ORDERED: POTASSIUM CHLORIDE 20 MEQ TAB.PRT.SR PO ONE (13:45)
[2019-05-21] MEDS: MAGNESIUM SULFATE/D5W 100 ML IV SCH ×2 (15:01→16:58)
[2019-05-21 15:27] VITALS: BP 102/58
--- NOTE | 2019-05-21 16:00 | NUR ---
tolerated antibiotic well
--- NOTE | 2019-05-21 18:48 | NUR ---
family in , concerned of patient status, emotional support [id number]. patient resting well. less agitated as day progresses, cooperative with med intake
--- NOTE | 2019-05-21 19:20 | NUR ---
Received pt on bed. Pt confused. Safety and comfort provided. Will continue to monitor.
[2019-05-21 20:11] VITALS: BP 115/64
[2019-05-21] MEDS: SILVER SULFADIAZINE 1% CREAM 50 GM TP SCH (20:13)
--- NOTE | 2019-05-21 22:23 | NUR ---
Talked with the son regarding update on her mother's condition. Pt confused. Safety and comfort provided.Hands off report to Dc Morin.
[2019-05-22] VITALS (15 sets, daily range): BP systolic 93–157; BP diastolic 42–90
[2019-05-22] MEDS: LORAZEPAM 2 MG/1 ML VIAL IV PRN ×2 (00:49→07:49)
--- NOTE | 2019-05-22 04:34 | NUR ---
Pt was restless last night; referred to DR Dominguez and ativan was ordered and was given to pt; pt remains tachycardic at 110, pt slept. VS as charted; multiple BM secondary to lactulose; incontinence care done; oral care and oral swabbing done; new IV to left forearm; new dressing to right wrist; continue to monitor; continue plan of care.
[2019-05-22] MEDS: PIPERACILLIN SODIUM/TAZOBACTAM 3.375 G in IV DEXTROSE 5% 50 ML IV SCH ×3 (05:00→20:52)
--- NOTE | 2019-05-22 06:45 | NUR ---
pt's HR at 120, checked temp showed 101 axillary; cooling measures initiated
--- NOTE | 2019-05-22 07:15 | NUR ---
report given to Thu SHERWOOD regarding current patient's issues
--- NOTE | 2019-05-22 07:20 | NUR ---
Report received at bedside from PRESLEY Irwin, Patient is not responsive, I tried to wake her up but she didn't open eyes, per RN that is how she is due to Hepatic Encephalopathy, Fever 101 will treat with Tylenol and cooling measures. In No resp distress. O2@ sat on RA 97% Safety bed alarm is on
--- NOTE | 2019-05-22 07:26 | NUR ---
Patient is not responding to her name, not opening eyes when touched and trigger, looks like she is shivering, will give Tylenol for fever. Fluids running Bed alarm on, safety reinforced
[2019-05-22] MEDS: PANTOPRAZOLE SODIUM 40 MG TABLET.DR PO SCH (07:48)
[2019-05-22] MEDS: ACETAMINOPHEN 325 MG TABLET PO PRN (07:49)
[2019-05-22] MEDS: FOLIC ACID 1 MG TABLET PO SCH (07:49)
[2019-05-22] MEDS: THIAMINE HCL 100 MG TABLET PO SCH (07:49)
[2019-05-22] MEDS: LACTULOSE 20 G/30 ML LIQUID UDC PO SCH ×2 (07:49→18:00)
[2019-05-22] MEDS: MULTIVITAMINS,THERAPEUTIC TABLET PO SCH (07:49)
[2019-05-22] MEDS: RIFAXIMIN 550 MG TABLET PO SCH ×2 (07:51→20:52)
[2019-05-22 08:31] LABS: BASOPHILS # (AUTO) 0.1 K/uL (0.0-8.0); EOSINOPHILS % (AUTO) 0.3 % (0.0-7.0); LYMPHOCYTES # (AUTO) 1.9 K/uL (20.0-40.0); LYMPHOCYTES % (AUTO) 15.2 % (20.5-51.5); MEAN CORPUSCULAR HEMOGLOBIN 35.5 uug (24.7-32.8); MEAN CORPUSCULAR HGB CONC 34 g/dL (32.3-35.6); MEAN CORPUSCULAR VOLUME 105.6 fL (75.5-95.3); MONOCYTES # (AUTO) 2.4 K/uL (2.0-10.0); MONOCYTES % (AUTO) 19.4 % (0.0-11.0); NEUTROPHILS # (AUTO) 7.9 K/uL (1.8-8.9); NEUTROPHILS % (AUTO) 64.1 % (38.5-71.5); PLATELET COUNT (AUTO) 299 K/uL (179-408); WHITE BLOOD COUNT (AUTO) 12.3 K/uL (3.8-11.8)
[2019-05-22 08:39] LABS: HEMATOCRIT 25.9 % (31.2-41.9); HEMOGLOBIN 8.7 g/dL (10.9-14.3); RED BLOOD CELL COUNT(AUTO) 2.45 MIL/uL (3.63-4.92)
[2019-05-22 08:49] LABS: BILIRUBIN,TOTAL 4.2 mg/dL (0.2-1.0); CREATININE 0.9 mg/dL (0.6-1.3); MAGNESIUM 1.8 mg/dL (1.8-2.4); PHOSPHOROUS 3.3 mg/dL (2.5-4.9); POTASSIUM 3.7 mmol/L (3.5-5.1); TOTAL PROTEIN, SERUM 6.8 g/dL (6.4-8.2)
--- NOTE | 2019-05-22 09:30 | NUR ---
Patient is ion deep sleep and not waking up for her name, [facility] that is how she was at night. not resposive. will notify the doctor that shw was not able to swallow all the meds.
[2019-05-22] MEDS: SILVER SULFADIAZINE 1% CREAM 50 GM TP SCH ×2 (10:13→20:53)
[2019-05-22 10:40] LABS: BAND % (MANUAL) 1 % (0-10); BASOPHILS % (MANUAL) 1 % (0-2); LYMPHOCYTES % (MANUAL) 17 % (20-40); MONOCYTES % (MANUAL) 20 % (2-10); NEUTROPHILS % (MANUAL) 61 % (42-75)
--- NOTE | 2019-05-22 10:40 | NUR ---
Md gibbons notified and order was given to repeat ammonium level, stat
--- NOTE | 2019-05-22 10:50 | NUR ---
Results of ammonium (33)reported to .
--- NOTE | 2019-05-22 11:00 | NUR ---
Dr Dominguez is here , he will assess the patient shortly Addendum: 05/22/19 at 1658 by DUONG MATOS RN Dr Dominguez is here , he will assess the patient shortly @11:50 am
--- NOTE | 2019-05-22 11:52 | NUR ---
Patient went down for CT head w/ Dr Dominguez
[2019-05-22 12:09] LABS: ABG BASE EXCESS -4.4 mmol/L; ABG HCO3 17.1 mmol/L; ABG PCO2 20.9 mmHg (35.0-45.0); ABG PO2 68.7 mmHg (75.0-100.0); ABG SITE RIGHT RADIAL; COHb 1.4 % (0.5-1.5); MetHb 0.2 % (0.0-1.5); O2Hb 92.8 % (94.0-97.0); VENT MODE room air
[2019-05-22] MEDS: VANCOMYCIN IV 1,000 MG in IV DEXTROSE 5% 250 ML IV SCH ×2 (12:26→21:49)
--- NOTE | 2019-05-22 12:35 | NUR ---
Bedside report received from Michael Andino patient received unresponsive and as indicated by nursing line department supervisor "patient to be monitored at bedside as HERMANN" After proper assessment done Dr. Dominguez called to the room and orders to transfer pt. to ICU setting received. at this time pt. heart rate in the 120's sinus, rectal fever of 104.3. RR 28 with use of abdominal muscles. Patient with no cough and Gag reflex Dr. Garcia at bedside and aware.
[2019-05-22] MEDS: ACETAMINOPHEN 650 MG SUPP.RECT RC PRN (13:27)
--- NOTE | 2019-05-22 13:45 | NUR ---
At this time patient brought down to ICU room 021-2 placed on icu monitoring with heart rate of 116, 132/75. with rectal temperature of 104.3 rectal tylenol administered. RR of 26 with use of abdominal muscles.
[2019-05-22 13:52] LABS: BASOPHILS # (AUTO) 0.1 K/uL (0.0-8.0); BASOPHILS % (AUTO) 0.8 % (0.0-2.0); EOSINOPHILS % (AUTO) 0.1 % (0.0-7.0); HEMATOCRIT 24.2 % (31.2-41.9); HEMOGLOBIN 8.2 g/dL (10.9-14.3); LYMPHOCYTES # (AUTO) 2.2 K/uL (20.0-40.0); LYMPHOCYTES % (AUTO) 14.9 % (20.5-51.5); MEAN CORPUSCULAR HEMOGLOBIN 35.6 uug (24.7-32.8); MEAN CORPUSCULAR HGB CONC 34 g/dL (32.3-35.6); MEAN CORPUSCULAR VOLUME 104.9 fL (75.5-95.3); MONOCYTES % (AUTO) 20.5 % (0.0-11.0); NEUTROPHILS # (AUTO) 9.3 K/uL (1.8-8.9); NEUTROPHILS % (AUTO) 63.7 % (38.5-71.5); PLATELET COUNT (AUTO) 297 K/uL (179-408); WHITE BLOOD COUNT (AUTO) 14.6 K/uL (3.8-11.8)
[2019-05-22 13:53] LABS: CREATININE 0.8 mg/dL (0.6-1.3); POTASSIUM 3.3 mmol/L (3.5-5.1); RED BLOOD CELL COUNT(AUTO) 2.31 MIL/uL (3.63-4.92)
[2019-05-22 13:59] LABS: BILIRUBIN,TOTAL 4.4 mg/dL (0.2-1.0); MAGNESIUM 1.7 mg/dL (1.8-2.4); PHOSPHOROUS 3.6 mg/dL (2.5-4.9); TOTAL PROTEIN, SERUM 6.4 g/dL (6.4-8.2)
[2019-05-22 14:12] LABS: BAND % (MANUAL) 1 % (0-10); LYMPHOCYTES % (MANUAL) 11 % (20-40); MONOCYTES % (MANUAL) 18 % (2-10); NEUTROPHILS % (MANUAL) 70 % (42-75)
--- NOTE | 2019-05-22 14:25 | NUR ---
Patient brought to ICU as ICU status at this time. Pt. received lethargic with most current temp of 104.3. cooling implemented.
--- NOTE | 2019-05-22 14:26 | NUR ---
Clinical pharmacy note(Vancomycin dosing per pharmacy) Subjective: To continue Vancomycin dosing on this patient for suspected infection(spiked fever, catheter associated UTI per ER note) Objective: BUN/Scr 11/0.9 WBC 12.3 Temp 101 Ht 170.18cm Wt 71.214kg Trough today at 1055: 12.7 Assessment/Plan: Based on trough, adjusted regimen to 1gm q10hr for new estimated trough of 15.2, first dose today at 1200. Will order trough before 4th scheduled dose (due tomorrow at 1730). Will check level when available and adjust as needed. Will follow
--- NOTE | 2019-05-22 14:30 | NUR ---
With Dr. Jose gibbons at bedside and RT team present. As ordered by Dr. Garcia patient ready to be intubated and 20mg of etomidate/ 50mg of succinylcholine administered IV push as ordered. ETT placed with capnography, verification follow up by X-ray, as ordered. Vent setting of : A/C 16, tv 500 FIO2 of 50% and PEEP +5. 5 minutes later pt. started on propofol for labor breathing.
--- NOTE | 2019-05-22 14:35 | NUR ---
Pt orally intubated without complications and placed on continuous mechanical ventilation. Good color changed noted on capnography and B/S equal and bilateral. Pt placed on Lou vent with ordered settings of A/C-16, VT-500, PEEP+5, FIO2-50% via 7.5 ETT secured at 23cm lip line. Pt tolerating vent settings well. Sxn'd small amount of thick yellowish secretions. Sputum sample sent to Lab. Vent alarm parameters checked, on and audible. Bag/valve/mask and mask at bedside. Vent plugged into red emergency outlet. Will continue to monitor Pt.
--- NOTE | 2019-05-22 15:00 | NUR ---
Dr. Jose Dominguez at bedside central line insertion in progress.
[2019-05-22] MEDS: PROPOFOL 100 ML IV PRN (15:03)
[2019-05-22] MEDS ORDERED: ETOMIDATE 20 MG/10 ML VIAL IV ONE (15:15)
[2019-05-22] MEDS ORDERED: SUCCINYLCHOLINE CHLORIDE 200 MG/10 ML VIAL IV ONE (15:15)
--- NOTE | 2019-05-22 16:19 | NUR ---
with Dr. Garcia still present in the unit patient now with gag and cough reflex, extremily restless and agitated, orders to increase it from 7 to 35mcg/kg/min orders to BUE soft restrains received as well.
[2019-05-22] MEDS: IV D5/ 0.9% NACL 1,000 ML IV PRN (16:24)
[2019-05-22 16:39] LABS: ABG BASE EXCESS -5.4 mmol/L; ABG HCO3 18.3 mmol/L; ABG PCO2 29.3 mmHg (35.0-45.0); ABG PH 7.414 (7.350-7.450); ABG PO2 81.6 mmHg (75.0-100.0); ABG SITE RIGHT RADIAL; ABG TOTAL HEMOGLOBIN 8.9 G/dL (12.0-16.0); COHb 1.8 % (0.5-1.5); MetHb 0.4 % (0.0-1.5); VENT MODE VENT - A/C
--- NOTE | 2019-05-22 16:45 | NUR ---
DR. Jose Dominguez notified of pt's latest blood ABG results. no new orders received.
--- NOTE | 2019-05-22 16:58 | NUR ---
DR. Jose Dominguez notified of ABG results post intubation. No new orders received. Addendum: 05/22/19 at 1705 by MERVIN CALDERON RN orders to continue current care plan received, and if in A.M. results remain the same pt. possibly will need diagnostic paracentesis.
--- NOTE | 2019-05-22 19:19 | NUR ---
Report given to Michael Ramey.
--- NOTE | 2019-05-22 19:40 | NUR ---
PATIENT WAS TAKEN DOWN TO CAT SCAN FOR CT OF THE HEAD with RT PRESENT AND PATIENT ATTACH TO VENTILATOR AND HEART MONITOR EMERGENCY MEDICATIONS ON HAND , VITALS SIGNS STABLE AND MONITORED AND DIPRIVAN RUNNING AT 50 MCG /KG /HR
--- NOTE | 2019-05-22 20:00 | NUR ---
* Exhibits adequate respiratory rate, depth, pattern, effort * Exhibits adequate gas exchange * Exhibits adequate lung sounds * Exhibits minimal/decreased sputum production Addendum: 05/22/19 at 2215 by ALBERTO GREENWOOD RN Amended: Links added. Addendum: 05/22/19 at 2215 by ALBERTO GREENWOOD RN Amended: Links milly.
--- NOTE | 2019-05-22 20:00 | NUR ---
PATIENT BACK FROM CAT SCAN , VENTILATOR , IN PLACE , RT AT BEDSIDE , DIPRIVAN RUNNING , VITAL SIGNS STABLE , IV SITE INTACT , MOREL INTACT ,
--- NOTE | 2019-05-22 20:00 | NUR ---
PATIENT IS ON COOLING BLANKET , PATIENT STOMACH IS DISTENDED
--- NOTE | 2019-05-22 20:30 | NUR ---
BENTON DEAN , CALLED AND INFORMED OF THE THE CURRENT PROCEDURE CT SCAN DONE , RESULTS PENDING WILL NOTIFY MD WHEN RSULTS COME OUT , ON RESTARINTS , AND NO FEVER , VERBALIZES UNDERSTANDING
[2019-05-22] MEDS ORDERED: ALBUMIN HUMAN 25% 50 ML IV ONE ×2 (20:45)
[2019-05-22] MEDS ORDERED: IV NORMAL SALINE 500 ML BAG IV ONE (20:45)
--- NOTE | 2019-05-22 21:00 | NUR ---
* Maintains vital signs WNL * Maintains optimal lab values, PATIENT IS ON MULTIPLE ANTIBIOTICS Addendum: 05/22/19 at 2215 by ALBERTO GREENWOOD RN Amended: Links added.
--- NOTE | 2019-05-22 21:20 | NUR ---
Head CT report called to Dr Albarran.
--- NOTE | 2019-05-22 22:00 | NUR ---
PATIENT IS OFF THE COOLING BLANKET
--- NOTE | 2019-05-22 22:30 | NUR ---
DIANNE, SON , CALLED AND GIVEN AN UPDATE ON PATIENT'S CONDITION ,
--- NOTE | 2019-05-22 23:00 | NUR ---
DR HERBERT IS VERIFIED OF POTASSIUM LEVEL , RECEIVED AN ORDER OF KCL 40 MEQ IV
[2019-05-23] VITALS (32 sets, daily range): BP systolic 81–112; BP diastolic 42–69
[2019-05-23] MEDS: POTASSIUM CHLORIDE 50 ML IV SCH ×4 (00:15→03:15)
[2019-05-23] MEDS: ACETAMINOPHEN 650 MG SUPP.RECT RC PRN (00:21)
--- NOTE | 2019-05-23 00:21 | NUR ---
PATIENT WAS GIVEN TYLENOL SC , TEMP WAS 100.0 AND WAS ON COOLING BLANKET
--- NOTE | 2019-05-23 00:30 | NUR ---
PATIENT WAS OFF COOLING BLANKET
[2019-05-23] MEDS: PIPERACILLIN SODIUM/TAZOBACTAM 3.375 G in IV DEXTROSE 5% 50 ML IV SCH ×2 (02:12→07:56)
--- NOTE | 2019-05-23 04:00 | NUR ---
PATIENT RESPONDS TO TOUCH BY WITHDRAWING , DOESNT'T OPEN EYES,
--- NOTE | 2019-05-23 04:45 | NUR ---
DR HERBERT WAS CALLED , REGARDING LOW BLOOD PRESSURE , WAITING FOR CALL BACK
[2019-05-23] MEDS: IV D5/ 0.9% NACL 1,000 ML IV PRN ×2 (05:05→22:49)
[2019-05-23 05:10] LABS: BILIRUBIN,TOTAL 3.2 mg/dL (0.2-1.0); MAGNESIUM 1.7 mg/dL (1.8-2.4); PHOSPHOROUS 3.4 mg/dL (2.5-4.9); POTASSIUM 3.5 mmol/L (3.5-5.1); TOTAL PROTEIN, SERUM 5.5 g/dL (6.4-8.2)
--- NOTE | 2019-05-23 05:29 | NUR ---
CXR IS DONE
[2019-05-23 06:26] LABS: BASOPHILS % (AUTO) 0.8 % (0.0-2.0); EOSINOPHILS # (AUTO) 0.1 K/uL (0.0-0.7); EOSINOPHILS % (AUTO) 1.1 % (0.0-7.0); LYMPHOCYTES # (AUTO) 2.5 K/uL (20.0-40.0); LYMPHOCYTES % (AUTO) 19.9 % (20.5-51.5); MEAN CORPUSCULAR HEMOGLOBIN 35.3 uug (24.7-32.8); MEAN CORPUSCULAR HGB CONC 33 g/dL (32.3-35.6); MEAN CORPUSCULAR VOLUME 106.1 fL (75.5-95.3); MONOCYTES # (AUTO) 2.3 K/uL (2.0-10.0); MONOCYTES % (AUTO) 18.3 % (0.0-11.0); NEUTROPHILS # (AUTO) 7.6 K/uL (1.8-8.9); NEUTROPHILS % (AUTO) 59.9 % (38.5-71.5); PLATELET COUNT (AUTO) 199 K/uL (179-408)
[2019-05-23 06:27] LABS: BASOPHILS # (AUTO) 0.1 K/uL (0.0-8.0)
[2019-05-23 06:30] LABS: HEMATOCRIT 20.2 % (31.2-41.9); HEMOGLOBIN 6.7 g/dL (10.9-14.3)
[2019-05-23 06:31] LABS: WHITE BLOOD COUNT (AUTO) 12.7 K/uL (3.8-11.8)
--- NOTE | 2019-05-23 06:37 | NUR ---
DR HERBERT IS CALLED AGAIN FOR REGARDING BLLOD PRESSURE AND LATEST BLOOD WORK , WAITING FOR CLL BACK , WILL NOTIFY THE ROUTE SALES MANAGER
--- NOTE | 2019-05-23 06:41 | NUR ---
THE EXCHANGE WAS CLLED AND LEFT A MESSAGE REGARDING BLOOD PRESSURE AND LATEST LAB
--- NOTE | 2019-05-23 06:58 | NUR ---
THE EXCHANGE WAS CALLED AGAIN , AND THE CELL PHONE WAS CLLED , WAITING FOR CALL BACK
--- NOTE | 2019-05-23 07:01 | NUR ---
DR HERBERT CALLED BACK AND GAVE UPDATES AND RECEIVED ORDERS
[2019-05-23] MEDS ORDERED: NOREPINEPHRINE BITARTRATE 8 MG in IV DEXTROSE 5% 500 ML IV PRN (07:15)
--- NOTE | 2019-05-23 07:20 | NUR ---
RT PT RECEIVED ON JACOBSEN VENT ON SETTING AC 16 VT500 PEEP +5 FIO2 50%. PT ET-TUBE SIZE 7.5 AT 23CM. PT TUBE IS SECURED AND INTACT WITH ANCHOR FAST. PT CUFF CHECKED WITH SENIOR DIGITAL DESIGNER. PT HME WAS CHANGED PT WAS SUCTION ORAL CARE WAS DONE. PT HAD SMALL BLOOD IN MOUTH SECRETIONS. PT AT THIS TIME IS TOLERATING VENT WELL NO DISTRESS NOTED. PT ALARMS ON AND AUDIBLE ABG WILL BE DONE AT 0800. WILL CONTINUE TO MONITOR PT.
[2019-05-23] MEDS: THIAMINE HCL 100 MG TABLET PO SCH (07:55)
[2019-05-23] MEDS: LACTULOSE 20 G/30 ML LIQUID UDC PO SCH ×2 (07:56→16:59)
[2019-05-23] MEDS: MULTIVITAMINS,THERAPEUTIC TABLET PO SCH (07:56)
[2019-05-23] MEDS: FOLIC ACID 1 MG TABLET PO SCH (07:56)
[2019-05-23] MEDS: PANTOPRAZOLE SODIUM 40 MG TABLET.DR PO SCH (07:56)
[2019-05-23] MEDS: SILVER SULFADIAZINE 1% CREAM 50 GM TP SCH ×2 (07:56→20:19)
[2019-05-23] MEDS: RIFAXIMIN 550 MG TABLET PO SCH ×2 (07:57→20:18)
[2019-05-23 08:11] LABS: EOSINOPHILS % (MANUAL) 3 % (0-8); LYMPHOCYTES % (MANUAL) 18 % (20-40); MONOCYTES % (MANUAL) 10 % (2-10); NEUTROPHILS % (MANUAL) 69 % (42-75)
[2019-05-23 08:18] LABS: ABG HCO3 16.7 mmol/L; ABG PH 7.478 (7.350-7.450); ABG PO2 61.1 mmHg (75.0-100.0); ABG SITE LEFT RADIAL; ABG TOTAL HEMOGLOBIN 7.3 G/dL (12.0-16.0); COHb 1.6 % (0.5-1.5); MetHb 0.4 % (0.0-1.5); O2Hb 90.2 % (94.0-97.0); VENT MODE VENT - A/C; VT, ABG 500 mL
--- NOTE | 2019-05-23 09:00 | NUR ---
Telephone consent signed by Ana Moore (): . alert and oriented during our telephone conversation and is aware of the blood transfusion orders for the pt.
--- NOTE | 2019-05-23 09:33 | NUR ---
Dr. Izquierdo here to see pt. Full report given. New orders received.
--- NOTE | 2019-05-23 09:47 | NUR ---
1 unit of PRBC started. Will closely monitor pt for any adverse blood transfusion reactions.
[2019-05-23] MEDS: VANCOMYCIN IV 1,000 MG in IV DEXTROSE 5% 250 ML IV SCH (09:51)
--- NOTE | 2019-05-23 10:00 | NUR ---
Pt tolerating 1st unit of PRBC well. No adverse reactions noted in the first 15 min. Will continue to monitor pt.
--- NOTE | 2019-05-23 10:13 | NUR ---
RT PER MD ORDER RATE WAS CHANGED TO 14, NO POST ABG WAS ORDER.
[2019-05-23] MEDS: MAGNESIUM SULFATE/D5W 100 ML IV SCH ×2 (12:06→14:40)
--- NOTE | 2019-05-23 12:25 | NUR ---
1st unit of PRBC completed. Pt tolerated blood transfusion well and no adverse reactions noted.
--- NOTE | 2019-05-23 12:40 | NUR ---
2nd unit of PRBC started. Will closely monitor for any adverse blood transfusion reactions.
--- NOTE | 2019-05-23 12:55 | NUR ---
Pt tolerating 2nd unit of PRBC. No adverse blood transfusion reactions noted during the first 15min. Will continue to monitor.
--- NOTE | 2019-05-23 14:00 | NUR ---
VERNON Dominguez here to see pt. Full report given. New orders received. No tube feeding to be ordered at this time yet per MD.
--- NOTE | 2019-05-23 14:59 | NUR ---
Clinical pharmacy note(Vancomycin dosing per pharmacy) Subjective: To continue Vancomycin dosing on this patient for suspected infection(spiked fever, catheter associated UTI per ER note) Objective: BUN/Scr 14/1.0 WBC 12.7 Temp 99.9 Ht 170.18cm Wt 71.214kg Trough pending today at 1730 Assessment/Plan: Will continue regimen of vanco 1gm q10hr for new estimated trough of 15.2, Trough pending tonight at 1730. Will check level when available and adjust as needed. Will follow
--- NOTE | 2019-05-23 15:15 | NUR ---
2nd unit of PRBC completed. Pt tolerated blood transfusion well and no adverse reactions noted. 1 unit of FFP started. Will closely monitor pt for any adverse reactions.
[2019-05-23 15:31] LABS: *OCCULT BLOOD STOOL POSITIVE (NEGATIVE)
[2019-05-23] MEDS: CEFTRIAXONE 2 G in IV DEXTROSE 5% 100 ML IV SCH (16:41)
--- NOTE | 2019-05-23 17:20 | NUR ---
REYNALDO Varela (Infectious MD) here to see pt. Full report given. New orders received.
--- NOTE | 2019-05-23 17:30 | NUR ---
1 unit of FFP completed. Pt tolerating blood transfusion well and no adverse reactions noted. VSS wnl and nad noted.
--- NOTE | 2019-05-23 18:19 | NUR ---
RT PT REMAINS ON VENT NO CHANGES AT THIS TIME PT TOLERATING VENT WELL PT WAS SUCTION WILL CONTINUE TO MONITOR PT. ALARMS ON AND AUDIBLE. AMBU BAG AT BED SIDE.
[2019-05-24] VITALS (24 sets, daily range): BP systolic 90–106; BP diastolic 50–62
--- NOTE | 2019-05-24 00:01 | NUR ---
Opened eyes & looked about. Guarded activities. Green diarrhea.
[2019-05-24 04:54] LABS: BASOPHILS # (AUTO) 0.1 K/uL (0.0-8.0); BASOPHILS % (AUTO) 1.2 % (0.0-2.0); EOSINOPHILS # (AUTO) 0.3 K/uL (0.0-0.7); EOSINOPHILS % (AUTO) 2.8 % (0.0-7.0); HEMOGLOBIN 8.9 g/dL (10.9-14.3); LYMPHOCYTES # (AUTO) 1.9 K/uL (20.0-40.0); LYMPHOCYTES % (AUTO) 17.4 % (20.5-51.5); MEAN CORPUSCULAR HEMOGLOBIN 33.4 uug (24.7-32.8); MEAN CORPUSCULAR HGB CONC 34 g/dL (32.3-35.6); MEAN CORPUSCULAR VOLUME 97.8 fL (75.5-95.3); MONOCYTES # (AUTO) 1.8 K/uL (2.0-10.0); MONOCYTES % (AUTO) 16.8 % (0.0-11.0); NEUTROPHILS # (AUTO) 6.7 K/uL (1.8-8.9); NEUTROPHILS % (AUTO) 61.8 % (38.5-71.5); PLATELET COUNT (AUTO) 217 K/uL (179-408); RED BLOOD CELL COUNT(AUTO) 2.66 MIL/uL (3.63-4.92); WHITE BLOOD COUNT (AUTO) 10.9 K/uL (3.8-11.8)
[2019-05-24 04:59] LABS: CREATININE 0.7 mg/dL (0.6-1.3); MAGNESIUM 1.8 mg/dL (1.8-2.4); PHOSPHOROUS 3.6 mg/dL (2.5-4.9)
[2019-05-24 05:05] LABS: POTASSIUM 2.8 mmol/L (3.5-5.1)
[2019-05-24] MEDS: POTASSIUM CHLORIDE 50 ML IV SCH ×4 (05:24→08:26)
--- NOTE | 2019-05-24 07:10 | NUR ---
[facility] toler[facility] settings well, orally intubated with 7.5 ett secured with tube farias. Vent alarms audible, checked and reset, bvm at bedside.
--- NOTE | 2019-05-24 07:20 | NUR ---
Received report from night shift supervisor nurse. Patient on landry vent, a/c 14 car628% PEEP 5, TV 500. IV fluids infusing at 100cc/hr and Potassium infusing. Patient is awake, opening eyes and looking around. Bilateral wrist restraints in place for safety. Patient in no apparent distress. Peck draining tea colored urine with sediments.
[2019-05-24 07:38] LABS: BAND % (MANUAL) 1 % (0-10); BASOPHILS % (MANUAL) 1 % (0-2); EOSINOPHILS % (MANUAL) 3 % (0-8); LYMPHOCYTES % (MANUAL) 18 % (20-40); MONOCYTES % (MANUAL) 15 % (2-10); NEUTROPHILS % (MANUAL) 62 % (42-75)
[2019-05-24 08:15] LABS: ABG BASE EXCESS -5.1 mmol/L; ABG HCO3 17.8 mmol/L; ABG PCO2 26.1 mmHg (35.0-45.0); ABG PH 7.451 (7.350-7.450); ABG SITE LEFT RADIAL; ABG TOTAL HEMOGLOBIN 10.1 G/dL (12.0-16.0); COHb 1.1 % (0.5-1.5); MetHb 0.3 % (0.0-1.5); O2Hb 97.5 % (94.0-97.0); VENT MODE VENT - A/C 14; VT, ABG 500 mL
[2019-05-24] MEDS: PANTOPRAZOLE SODIUM 40 MG TABLET.DR PO SCH (08:21)
[2019-05-24] MEDS: THIAMINE HCL 100 MG TABLET PO SCH (08:21)
[2019-05-24] MEDS: FOLIC ACID 1 MG TABLET PO SCH (08:21)
[2019-05-24] MEDS: LACTULOSE 20 G/30 ML LIQUID UDC PO SCH (08:21)
[2019-05-24] MEDS: MULTIVITAMINS,THERAPEUTIC TABLET PO SCH (08:21)
[2019-05-24] MEDS: RIFAXIMIN 550 MG TABLET PO SCH (08:22)
[2019-05-24] MEDS: SILVER SULFADIAZINE 1% CREAM 50 GM TP SCH ×2 (08:25→21:00)
--- NOTE | 2019-05-24 09:00 | NUR ---
Patient seen by Dr. Izquierdo
[2019-05-24 09:21] LABS: MAGNESIUM 1.9 mg/dL (1.8-2.4); PHOSPHOROUS 3.6 mg/dL (2.5-4.9)
[2019-05-24] MEDS: IV D5/ 0.9% NACL 1,000 ML IV PRN ×2 (09:29→21:17)
[2019-05-24] MEDS ORDERED: POTASSIUM CHLORIDE 50 ML IV SCH (11:00)
[2019-05-24] MEDS ORDERED: LACTULOSE 20 G/30 ML LIQUID UDC NG SCH ×2 (11:36→17:00)
[2019-05-24] MEDS ORDERED: JEVITY 1.2 1000 ML LIQUID NG PRN (11:45)
[2019-05-24] MEDS: PANTOPRAZOLE SODIUM 40 MG VIAL IV SCH ×2 (12:43→21:14)
[2019-05-24] MEDS: LACTULOSE 20 G/30 ML LIQUID UDC NG SCH ×2 (12:44→16:37)
--- NOTE | 2019-05-24 13:36 | NUR ---
Patient seen by Dr. Dominguez.
[2019-05-24] MEDS: CEFTRIAXONE 2 G in IV DEXTROSE 5% 100 ML IV SCH (14:05)
--- NOTE | 2019-05-24 18:43 | NUR ---
Patient seen by Mansi from [place].
--- NOTE | 2019-05-24 18:44 | NUR ---
Patient on Mikaela vent AC 12, Fio2 35%, 5 PEEP, TV 500, ET Tube 7.5. 23 centimeters. Patient has a godfrey draining tea colored urine with sediment, Rectal tube, and ng tube running at 30cc/hr. Patient is saturating 9%, Normal Sinus rhythm 80 bpm, and hemodynamically stable, minimal urine output throughout shift, with significant liquid bowel movements. No signs of distress at this time, all needs met. Bed in low position, side rails up x2, continuous monitoring in place.
[2019-05-24] MEDS ORDERED: RIFAXIMIN 550 MG TABLET PO SCH (21:00)
--- NOTE | 2019-05-24 21:01 | NUR ---
RECEIVED PATIENT ON A MECHANICAL VENTILATOR. PATIENT IS ORALLY INTUBATED WITH A 7.5 ET TUBE. ET TUBE IS SECURED VIA ANCHOR FAST. VENT ALARMS CHECKED AND THEY ARE ON AND AUDIBLE. AMBU BAG IS BY BEDSIDE. VENT IS PLUGGED IN THE RED EMERGENCY OUTLET. NO SOB NOTED AT THIS TIME. WILL CONTINUE TO MONITOR PATIENT.
[2019-05-25] VITALS (24 sets, daily range): BP systolic 93–126; BP diastolic 51–70
[2019-05-25 04:47] LABS: BASOPHILS # (AUTO) 0.1 K/uL (0.0-8.0); BASOPHILS % (AUTO) 1.2 % (0.0-2.0); EOSINOPHILS # (AUTO) 0.3 K/uL (0.0-0.7); EOSINOPHILS % (AUTO) 2.7 % (0.0-7.0); HEMATOCRIT 27.3 % (31.2-41.9); LYMPHOCYTES # (AUTO) 2.1 K/uL (20.0-40.0); LYMPHOCYTES % (AUTO) 18.5 % (20.5-51.5); MEAN CORPUSCULAR HEMOGLOBIN 32.4 uug (24.7-32.8); MEAN CORPUSCULAR HGB CONC 33 g/dL (32.3-35.6); MEAN CORPUSCULAR VOLUME 98.8 fL (75.5-95.3); MONOCYTES # (AUTO) 1.9 K/uL (2.0-10.0); MONOCYTES % (AUTO) 16.3 % (0.0-11.0); NEUTROPHILS # (AUTO) 7.1 K/uL (1.8-8.9); NEUTROPHILS % (AUTO) 61.3 % (38.5-71.5); PLATELET COUNT (AUTO) 254 K/uL (179-408); RED BLOOD CELL COUNT(AUTO) 2.76 MIL/uL (3.63-4.92); WHITE BLOOD COUNT (AUTO) 11.6 K/uL (3.8-11.8)
[2019-05-25 04:57] LABS: CREATININE 0.7 mg/dL (0.6-1.3); MAGNESIUM 1.8 mg/dL (1.8-2.4); PHOSPHOROUS 3.4 mg/dL (2.5-4.9); POTASSIUM 3.1 mmol/L (3.5-5.1)
[2019-05-25 06:01] LABS: BAND % (MANUAL) 1 % (0-10); EOSINOPHILS % (MANUAL) 3 % (0-8); LYMPHOCYTES % (MANUAL) 17 % (20-40); METAMYELOCYTES % 2 % (0-1); MONOCYTES % (MANUAL) 15 % (2-10); NEUTROPHILS % (MANUAL) 61 % (42-75)
--- NOTE | 2019-05-25 07:23 | NUR ---
Received report from rn shift mgr nurse. Patient on landry vent, a/c 12 fio2 35% PEEP 5, TV 500. IV fluids infusing at 100cc/hr. Patient is awake, opening eyes and looking around. Bilateral wrist restraints in place for safety. Patient in no apparent distress. Peck draining tea colored urine with sediments, AND flexiseal in place. HR is sinus rhythm 93.
--- NOTE | 2019-05-25 07:40 | NUR ---
PT RECEIVED ORALLY INTUBATED - 7.5 ETT; APPROX. 23CM AT THE LIP. JACOBSEN VENTILATOR SETTINGS ARE AC 12, VT 500 PEEP +5, FIO2 35%. PT APPEARS TO BE TOLERATING CURRENT SETTINGS AT THIS TIME. VENT ALARMS CHECKED, ARE ON AND FUNCTIONING PROPERLY. SUCTIONED SMALL AMOUNT OF THIN, WHITE SECRETIONS. ETT IS PATENT AND SECURED VIA ANCHOR FAST. ABG TO BE DONE - ORDERED FOR 0800. AMBU BAG IS AT BEDSIDE. WILL CONTINUE TO MONITOR THROUGHOUT SHIFT.
[2019-05-25 08:03] LABS: ABG BASE EXCESS -5.2 mmol/L; ABG HCO3 17.6 mmol/L; ABG PCO2 25.8 mmHg (35.0-45.0); ABG PH 7.452 (7.350-7.450); ABG PO2 81.6 mmHg (75.0-100.0); ABG SITE LEFT RADIAL; ABG TOTAL HEMOGLOBIN 10.2 G/dL (12.0-16.0); COHb 0.8 % (0.5-1.5); MetHb 0.1 % (0.0-1.5); O2Hb 95.7 % (94.0-97.0); VENT MODE VENT - A/C; VT, ABG 500 mL
[2019-05-25] MEDS: FOLIC ACID 1 MG TABLET NG SCH (08:03)
[2019-05-25] MEDS: ACETAMINOPHEN 325 MG TABLET PO PRN (08:03)
[2019-05-25] MEDS: MULTIVITAMINS,THERAPEUTIC TABLET NG SCH (08:03)
[2019-05-25] MEDS: THIAMINE HCL 100 MG TABLET NG SCH (08:03)
[2019-05-25] MEDS: LACTULOSE 20 G/30 ML LIQUID UDC NG SCH ×3 (08:04→17:49)
[2019-05-25] MEDS: PANTOPRAZOLE SODIUM 40 MG VIAL IV SCH ×2 (08:04→20:16)
[2019-05-25] MEDS: SILVER SULFADIAZINE 1% CREAM 50 GM TP SCH ×2 (08:07→20:17)
[2019-05-25] MEDS: IV D5/ 0.9% NACL 1,000 ML IV PRN (08:09)
[2019-05-25 10:10] LABS: A/G RATIO 0.6 (0.7-1.7); ALBUMIN 2.4 g/dL (2.9-4.4); ALPHA-1-GLOBULIN 0.3 g/dL (0.0-0.4); ALPHA-2-GLOBULIN 0.5 g/dL (0.4-1.0); GAMMA GLOBULIN 2.1 g/dL (0.4-1.8); GLOBULIN, TOTAL 3.8 g/dL (2.2-3.9); M-SPIKE Not Observed g/dL (Not Observed)
[2019-05-25] MEDS: IV D5 1/2 NS 1000 ML 1,000 ML IV PRN (10:45)
--- NOTE | 2019-05-25 10:48 | NUR ---
Patient seen by Dr. Dominguez.
[2019-05-25] MEDS ORDERED: POTASSIUM CHLORIDE 20 MEQ POWDER PACKET NG ONE (11:15)
--- NOTE | 2019-05-25 12:35 | NUR ---
Patient seen by wound care.
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
[2019-05-25] MEDS: CEFTRIAXONE 2 G in IV DEXTROSE 5% 100 ML IV SCH (13:32)
--- NOTE | 2019-05-25 13:40 | NUR ---
Patient experienced a seizure to right side of face, eyes, mouth, lips. Called Dr. Dominguez and received orders for keppra and head ct stat.
[2019-05-25] MEDS ORDERED: LEVETIRACETAM IV 1,000 MG in IV DEXTROSE 5% 100 ML IV STA (13:42)
--- NOTE | 2019-05-25 14:08 | NUR ---
Patient had another seizure lasting 45 seconds as the keppra was infusing. Right facial with eye, and mouth.
[2019-05-25] MEDS ORDERED: VITAL AF 1.2 1,000 ML LIQUID GT PRN (15:00)
--- NOTE | 2019-05-25 16:55 | NUR ---
Patient had a seizure lasting 30 seconds isolated to right side of face and right foot. contacted cathryn gibbons and received orders.
[2019-05-25] MEDS ORDERED: PHENYTOIN SODIUM IV 1,000 MG in IV NORMAL SALINE 100 ML IV ONE (17:15)
[2019-05-25] MEDS: VITAL AF 1.2 1,000 ML LIQUID NG PRN (18:36)
--- NOTE | 2019-05-25 18:53 | NUR ---
patient opening eyes, not tracking, grimacing with noxious stimuli only. Patient is on landry vent a/c 12, peep 5 fio2 35%, TV 500. Patient has godfrey draining minimal tea colored urine, rectal tube in place with liquid stool, dvt pumps on, and central line in right internal jugular with D51/2 running at 75cc/hr. Vitals remain stable, still waiting for first step mattress.
--- NOTE | 2019-05-25 20:00 | NUR ---
flexi seal intact and draining liquid stool
--- NOTE | 2019-05-25 20:00 | NUR ---
stomach is distended
--- NOTE | 2019-05-25 20:00 | NUR ---
no seizure noted
--- NOTE | 2019-05-25 21:53 | NUR ---
no seizure noted , vital signs stable
--- NOTE | 2019-05-25 21:56 | NUR ---
krzysztof enrique is here to see patient
--- NOTE | 2019-05-25 22:00 | NUR ---
flexi seal intact and draining
--- NOTE | 2019-05-25 22:08 | NUR ---
No n/v/d/c, lab work being check daily and corrections being done and provided for abnormal values Addendum: 05/25/19 at 2209 by ALBERTO GREENWOOD RN Amended: Links added. Addendum: 05/25/19 at 2210 by ALBERTO GREENWOOD RN Amended: Links added. Addendum: 05/25/19 at 2210 by ALBERTO GREENWOOD RN Amended: Links added.
--- NOTE | 2019-05-25 22:09 | NUR ---
* Exhibits no s/s of infection * Exhibits a decrease in lesion size * Maintains nutritional status Addendum: 05/25/19 at 2210 by ALBERTO GREENWOOD RN Amended: Kaiden added. Addendum: 05/25/19 at 2210 by ALBERTO GREENWOOD RN Amended: Kaiden added.
--- NOTE | 2019-05-25 22:10 | NUR ---
-Gastric residuals less than 100cc Addendum: 05/25/19 at 2210 by ALBERTO GREENWOOD RN Amended: Links added.
--- NOTE | 2019-05-25 22:11 | NUR ---
no seizure noted
[2019-05-25] MEDS: LEVETIRACETAM IV 500 MG in IV DEXTROSE 5% 100 ML IV SCH (22:20)
--- NOTE | 2019-05-25 22:45 | NUR ---
krzysztof enrique called and given an update on patient's condition
[2019-05-26] VITALS (66 sets, daily range): BP systolic 83–125; BP diastolic 45–99
--- NOTE | 2019-05-26 | NUR ---
flexi seal itact and draining, irrigated 100 ml of water
--- NOTE | 2019-05-26 00:27 | NUR ---
* Maintains siderails up, monitor for seizures and suction accordingly and medicated when applicable Addendum: 05/26/19 at 0028 by ALBERTO GREENWOOD RN Amended: Links added.
--- NOTE | 2019-05-26 00:27 | NUR ---
, depth, pattern, effort * Exhibits adequate gas exchange * Exhibits adequate lung sounds * Exhibits minimal/decreased sputum production Addendum: 05/26/19 at 0027 thao GREENWOOD RN Amended: Links added. Addendum: 05/26/19 at 0028 thao GREENWOOD RN Amended: Links added.
--- NOTE | 2019-05-26 00:55 | NUR ---
no seizure noted
--- NOTE | 2019-05-26 01:59 | NUR ---
* Maintains vital signs WNL during activity Addendum: 05/26/19 at 0159 by ALBERTO GREENWOOD RN Amended: Links added.
--- NOTE | 2019-05-26 03:00 | NUR ---
no seizue noted
--- NOTE | 2019-05-26 05:34 | NUR ---
xr tech is here to do cxr, no seizure noted
[2019-05-26 05:42] LABS: BASOPHILS # (AUTO) 0.1 K/uL (0.0-8.0); BASOPHILS % (AUTO) 1.2 % (0.0-2.0); EOSINOPHILS # (AUTO) 0.5 K/uL (0.0-0.7); EOSINOPHILS % (AUTO) 4.2 % (0.0-7.0); HEMATOCRIT 28.8 % (31.2-41.9); HEMOGLOBIN 9.3 g/dL (10.9-14.3); LYMPHOCYTES # (AUTO) 2.5 K/uL (20.0-40.0); LYMPHOCYTES % (AUTO) 21.3 % (20.5-51.5); MEAN CORPUSCULAR HEMOGLOBIN 32.7 uug (24.7-32.8); MEAN CORPUSCULAR HGB CONC 32 g/dL (32.3-35.6); MEAN CORPUSCULAR VOLUME 100.6 fL (75.5-95.3); MONOCYTES # (AUTO) 2.2 K/uL (2.0-10.0); MONOCYTES % (AUTO) 18.7 % (0.0-11.0); NEUTROPHILS # (AUTO) 6.3 K/uL (1.8-8.9); NEUTROPHILS % (AUTO) 54.6 % (38.5-71.5); PLATELET COUNT (AUTO) 257 K/uL (179-408); RED BLOOD CELL COUNT(AUTO) 2.86 MIL/uL (3.63-4.92); WHITE BLOOD COUNT (AUTO) 11.6 K/uL (3.8-11.8)
[2019-05-26 05:52] LABS: CREATININE 0.8 mg/dL (0.6-1.3); POTASSIUM 3.3 mmol/L (3.5-5.1)
[2019-05-26 05:54] LABS: MAGNESIUM 1.9 mg/dL (1.8-2.4); PHOSPHOROUS 3.1 mg/dL (2.5-4.9)
--- NOTE | 2019-05-26 06:00 | NUR ---
feeding stopped and cresidual checked
--- NOTE | 2019-05-26 06:36 | NUR ---
Jose Alexander NP , WAS CALLED FOR LATEST BLOOD RESULTS THIS MORNING PARTICULARLY POTASIUM LEVEL , WAITING FOR CALL BACK
--- NOTE | 2019-05-26 06:48 | NUR ---
patient is asleep , responds to light pain , ETT intact , ventilator setting is ac 1 , tv 500 , p 5 , fio2 of 35 % , feeding stop , ngt clamped , no residual , flexi seal and godfrey and central line intact and patent , iv running at 75 ml/hr
[2019-05-26 07:37] LABS: EOSINOPHILS % (MANUAL) 1 % (0-8); LYMPHOCYTES % (MANUAL) 24 % (20-40); MONOCYTES % (MANUAL) 13 % (2-10); NEUTROPHILS % (MANUAL) 62 % (42-75)
[2019-05-26] MEDS: IV D5 1/2 NS 1000 ML 1,000 ML IV PRN (07:54)
[2019-05-26 08:00] LABS: ABG BASE EXCESS -4.1 mmol/L; ABG HCO3 19.5 mmol/L; ABG PCO2 30.2 mmHg (35.0-45.0); ABG PH 7.427 (7.350-7.450); ABG PO2 97.9 mmHg (75.0-100.0); ABG SITE RIGHT RADIAL; ABG TOTAL HEMOGLOBIN 10.1 G/dL (12.0-16.0); COHb 0.6 % (0.5-1.5); MetHb 0.2 % (0.0-1.5); VENT MODE VENT - A/C; VT, ABG 500 mL
[2019-05-26] MEDS: PANTOPRAZOLE SODIUM 40 MG VIAL IV SCH ×2 (08:00→20:58)
[2019-05-26] MEDS: FOLIC ACID 1 MG TABLET NG SCH (08:00)
[2019-05-26] MEDS: LACTULOSE 20 G/30 ML LIQUID UDC NG SCH ×3 (08:00→16:05)
[2019-05-26] MEDS: MULTIVITAMINS,THERAPEUTIC TABLET NG SCH (08:00)
[2019-05-26] MEDS: THIAMINE HCL 100 MG TABLET NG SCH (08:00)
--- NOTE | 2019-05-26 08:00 | NUR ---
Received patient off sedatives,with eyes open, withdraws to painful stimuli. Soft restrains to LUE. Patient noted to be in distress upon repositioning. Ventilator on A/C of 12, tv500, fio2 35%, Peep +5. Ng to right nostril, clamped with orders to resume feeding at 1000. godfrey catheter to gravity and rectal tube in place draining watery stool. 3L RIJ patent. Will continue with care plan.
[2019-05-26] MEDS: PHENYTOIN 100 MG/4 ML UDC NG SCH ×3 (08:03→16:06)
[2019-05-26] MEDS: LEVETIRACETAM IV 500 MG in IV DEXTROSE 5% 100 ML IV SCH (08:06)
[2019-05-26] MEDS: SILVER SULFADIAZINE 1% CREAM 50 GM TP SCH ×2 (08:07→21:07)
[2019-05-26] MEDS: PROPOFOL 100 ML IV PRN ×2 (08:31→19:43)
--- NOTE | 2019-05-26 09:00 | NUR ---
Patient with persistent periods of desaturation sustained between 88-91, and not responding to oral and ETT suctioning. RT called and as reported patient titrated up to FIO2 of 65% with saturation of 93-94%. Will continue to monitor.
[2019-05-26] MEDS: POTASSIUM CHLORIDE 50 ML IV SCH ×2 (09:13→10:18)
[2019-05-26] MEDS: VITAL AF 1.2 1,000 ML LIQUID NG PRN (10:30)
[2019-05-26] MEDS: NOREPINEPHRINE BITARTRATE 8 MG in IV DEXTROSE 5% 500 ML IV PRN (11:25)
--- NOTE | 2019-05-26 14:00 | NUR ---
Attending physician Dr. Lisandro Yen in the unit to see and examine patient, report given. Orders to continue with current care plan received.
[2019-05-26] MEDS: CEFTRIAXONE 2 G in IV DEXTROSE 5% 100 ML IV SCH (14:47)
--- NOTE | 2019-05-26 15:00 | NUR ---
information technology security manager in the unit for ordered EEG on patient.
--- NOTE | 2019-05-26 15:30 | NUR ---
pulmonary services, Dr. Timbo Elmore. in the unit to see and examine patient, full report given orders received, and at this time Attempts to contact pt's son and as requested by Dr. Izquierdo for discussion of ultrasound guided thoracentesis message left. Awaiting call back.
--- NOTE | 2019-05-26 16:22 | NUR ---
A call from Neurologist Dr. Albarran and orders to give 2mg of ativan iv push now and 500mg kepra IV X1 dose now and increase routine to 1000mg Q12Hrs.
[2019-05-26] MEDS ORDERED: LORAZEPAM 2 MG/1 ML VIAL IV ONE (16:30)
[2019-05-26] MEDS ORDERED: LEVETIRACETAM IV 500 MG in IV DEXTROSE 5% 100 ML IV ONE (16:30)
--- NOTE | 2019-05-26 20:00 | NUR ---
no seizure noted , patient is sedated
--- NOTE | 2019-05-26 20:30 | NUR ---
family is here son klaus at the bedside given an update on patient's condition and medication today
[2019-05-26] MEDS: LEVETIRACETAM IV 1,000 MG in IV DEXTROSE 5% 100 ML IV SCH (20:56)
--- NOTE | 2019-05-26 21:00 | NUR ---
carmita PRINTED CIRCUIT BOARD DRAFTER is here to see patient given an update on patient condition , received an order
--- NOTE | 2019-05-26 21:00 | NUR ---
deshawn olson is here to see patient , received order of repeat eeg in am
--- NOTE | 2019-05-26 22:00 | NUR ---
patient ws washed and cleaned and flexi seal bag is changed
--- NOTE | 2019-05-26 22:00 | NUR ---
no seizure noted , calm
--- NOTE | 2019-05-26 22:00 | NUR ---
no seizure noted
--- NOTE | 2019-05-26 22:43 | NUR ---
* Maintains vital signs WNL * Maintains optimal lab values, patient is on antiobitcs Addendum: 05/26/19 at 2243 by ALBERTO GREENWOOD RN Amended: Kaiden added. Addendum: 05/26/19 at 2246 by ALBERTO GREENWOOD RN Amended: Kaiden added.
--- NOTE | 2019-05-26 22:46 | NUR ---
* Maintains vital signs WNL * Maintains optimal lab values Addendum: 05/26/19 at 2246 by ALBERTO GREENWOOD RN Amended: Links added.
--- NOTE | 2019-05-26 22:47 | NUR ---
* Exhibits decreased drainage at site * Exhibits no s/s of infection * Exhibits a decrease in lesion size * Maintains nutritional status * Maintains hydration status * Maintains optimal lab values Addendum: 05/26/19 at 2247 by ALBERTO GREENWOOD RN Amended: Links added.
--- NOTE | 2019-05-26 23:12 | NUR ---
Matt Rt , informe of repeat eeg ordered in am , and Annel slab lifting supervisor informed of airloss mattress follow up
[2019-05-26] MEDS: NYSTATIN POWDER 15 GM BOTTLE TOP SCH (23:15)
[2019-05-27] VITALS (90 sets, daily range): BP systolic 86–142; BP diastolic 44–98
--- NOTE | 2019-05-27 | NUR ---
no seizure noted
--- NOTE | 2019-05-27 02:00 | NUR ---
no seizure noted
[2019-05-27] MEDS: IV D5 1/2 NS 1000 ML 1,000 ML IV PRN ×2 (03:27→20:13)
--- NOTE | 2019-05-27 03:33 | NUR ---
PT ON CONT JACOBSEN VENT WITH 7.5 ET/TUBE IN PLACE AND SECURED, WITH ANCHOR FAST, MOVE SIDE TO SIDE , AND CENTER, ORAL CARE DONE , SUCTIONED LIGHT PINKISH TINGE SECRETIONS, TITRATE FIO2 55%, MAINTAIN SAT ABOVE 94%, ALL VENT ALARMS OK, PT IS SEDATED. Maame LI RCP Addendum: 05/27/19 at 0335 by SAMEERA LI RT Amended: Links added.
--- NOTE | 2019-05-27 04:00 | NUR ---
no seizure noted
[2019-05-27 05:26] LABS: BASOPHILS # (AUTO) 0.2 K/uL (0.0-8.0); BASOPHILS % (AUTO) 1.1 % (0.0-2.0); EOSINOPHILS # (AUTO) 0.5 K/uL (0.0-0.7); EOSINOPHILS % (AUTO) 3.7 % (0.0-7.0); HEMATOCRIT 31.5 % (31.2-41.9); HEMOGLOBIN 10.3 g/dL (10.9-14.3); LYMPHOCYTES # (AUTO) 3.8 K/uL (20.0-40.0); LYMPHOCYTES % (AUTO) 26.2 % (20.5-51.5); MEAN CORPUSCULAR HEMOGLOBIN 33.1 uug (24.7-32.8); MEAN CORPUSCULAR HGB CONC 33 g/dL (32.3-35.6); MEAN CORPUSCULAR VOLUME 101.3 fL (75.5-95.3); MONOCYTES # (AUTO) 2.6 K/uL (2.0-10.0); NEUTROPHILS # (AUTO) 7.4 K/uL (1.8-8.9); PLATELET COUNT (AUTO) 357 K/uL (179-408); RED BLOOD CELL COUNT(AUTO) 3.11 MIL/uL (3.63-4.92); WHITE BLOOD COUNT (AUTO) 14.4 K/uL (3.8-11.8)
--- NOTE | 2019-05-27 05:28 | NUR ---
* Maintains vital signs WNL * Maintains optimal lab values-Gastric residuals less than 100cc, Addendum: 05/27/19 at 0532 by ALBERTO GREENWOOD RN Amended: Links added.
--- NOTE | 2019-05-27 05:36 | NUR ---
cxr done , feeding stopped , residual check
[2019-05-27 05:39] LABS: CREATININE 0.8 mg/dL (0.6-1.3); MAGNESIUM 1.6 mg/dL (1.8-2.4); PHOSPHOROUS 3.3 mg/dL (2.5-4.9); POTASSIUM 3.5 mmol/L (3.5-5.1)
[2019-05-27 06:21] LABS: EOSINOPHILS % (MANUAL) 5 % (0-8); LYMPHOCYTES % (MANUAL) 28 % (20-40); MONOCYTES % (MANUAL) 19 % (2-10); NEUTROPHILS % (MANUAL) 48 % (42-75)
--- NOTE | 2019-05-27 07:22 | NUR ---
Received report from product examiner nurse, patient on montesinos vent a/c 12, TV 500 Peep 5, Fio2 50%. Patient has godfrey draining, Rectal tube, R IJ line with D51/2 infusing 75cc/hr, Levophed 10mcg/min. Patient appears to be comfortable on her sedation vacation, received call from VISUAL NACERT that he will be here at 3pm. Patient has 2+ edema on bilateral hads and feet. Will continue to monitor.
--- NOTE | 2019-05-27 07:35 | NUR ---
PT REC'D ON JACOBSEN FULL VENT SUPPORT NOTED, NO WEANING FOR THIS AM, ABG'S TO BE DRAWN. ETT 7.5 SECURED WITH TUBE LUBIN AT APPROX 22-23 LIP-LINE. PT SXN'D, ORAL AND ETT MOD THIS PALE YELLOW SECRETIONS NOTED. VENT ALARMS AUDIBLE CHECKED AND RESET. BVM AT BEDSIDE.
[2019-05-27 07:41] LABS: ABG BASE EXCESS -5.4 mmol/L; ABG HCO3 18.6 mmol/L; ABG PCO2 31.3 mmHg (35.0-45.0); ABG PH 7.391 (7.350-7.450); ABG PO2 123.9 mmHg (75.0-100.0); ABG SITE LEFT RADIAL; ABG TOTAL HEMOGLOBIN 11.4 G/dL (12.0-16.0); COHb 0.9 % (0.5-1.5); MetHb 0.3 % (0.0-1.5); O2Hb 97.8 % (94.0-97.0); VENT MODE VENT - A/C 12; VT, ABG 500 mL
[2019-05-27] MEDS ORDERED: POTASSIUM CHLORIDE 20 MEQ POWDER PACKET GT ONE (08:30)
[2019-05-27] MEDS: LEVETIRACETAM IV 1,000 MG in IV DEXTROSE 5% 100 ML IV SCH (08:43)
[2019-05-27] MEDS: PANTOPRAZOLE SODIUM 40 MG VIAL IV SCH ×2 (08:44→20:13)
[2019-05-27] MEDS: ACETAMINOPHEN 325 MG TABLET PO PRN (08:45)
[2019-05-27] MEDS: FOLIC ACID 1 MG TABLET NG SCH (08:45)
[2019-05-27] MEDS: THIAMINE HCL 100 MG TABLET NG SCH (08:45)
[2019-05-27] MEDS: LACTULOSE 20 G/30 ML LIQUID UDC NG SCH ×3 (08:45→18:13)
[2019-05-27] MEDS: NYSTATIN POWDER 15 GM BOTTLE TOP SCH (08:45)
[2019-05-27] MEDS: MULTIVITAMINS,THERAPEUTIC TABLET NG SCH (08:45)
[2019-05-27] MEDS: SILVER SULFADIAZINE 1% CREAM 50 GM TP SCH ×2 (08:46→20:44)
[2019-05-27 08:50] LABS: BILIRUBIN,DIRECT 0.7 mg/dL (0.0-0.2); BILIRUBIN,TOTAL 1.5 mg/dL (0.2-1.0); TOTAL PROTEIN, SERUM 6.5 g/dL (6.4-8.2)
[2019-05-27] MEDS: MAGNESIUM SULFATE/D5W 100 ML IV SCH ×2 (08:53→09:48)
--- NOTE | 2019-05-27 09:00 | NUR ---
Neuro check, patient still not responsive to external stimuli, no eye opening, pupillary response is sluggish, minimal to no cough/gag on suctioning.
[2019-05-27] MEDS: PHENYTOIN 100 MG/4 ML UDC NG SCH ×3 (09:48→17:26)
--- NOTE | 2019-05-27 11:00 | NUR ---
Neuro check, patient still not responsive to external stimuli, no eye opening, pupillary response is sluggish, minimal to no cough/gag on suctioning.
[2019-05-27] MEDS: VITAL AF 1.2 1,000 ML LIQUID NG PRN (11:14)
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
[2019-05-27] MEDS: LIDOCAINE HCL 1% 20 ML VIAL IJ STA ×2 (12:53→12:55)
--- NOTE | 2019-05-27 12:54 | NUR ---
Xylocaine to be given by interventional radiologist.
--- NOTE | 2019-05-27 13:00 | NUR ---
Neuro check, patient still not responsive to external stimuli, no eye opening, pupillary response is sluggish, minimal to no cough/gag on suctioning.
--- NOTE | 2019-05-27 13:40 | NUR ---
Procedure completed without complication by Dr. Rios, ultrasound and respiratory present.
[2019-05-27] MEDS: NOREPINEPHRINE BITARTRATE 8 MG in IV DEXTROSE 5% 500 ML IV PRN (13:44)
[2019-05-27] MEDS: CEFTRIAXONE 2 G in IV DEXTROSE 5% 100 ML IV SCH (14:37)
--- NOTE | 2019-05-27 14:45 | NUR ---
Patient noted to have some sort of reaction as evidenced by rash on left knee upper right chest and left shoulder. Notified physician and awaiting orders. notified pharmacy that it may be due to lidocain which is the newest medication.
--- NOTE | 2019-05-27 15:00 | NUR ---
Neuro check, patient still not responsive to external stimuli, no eye opening, pupillary response is sluggish, minimal cough/gag on suctioning.
[2019-05-27] MEDS ORDERED: diphenhydrAMINE 50 MG/1 ML VIAL IV PRN (15:30)
--- NOTE | 2019-05-27 16:00 | NUR ---
Neuro check, patient minimally responsive to external stimuli, no eye opening, pupillary response is sluggish, cough/gag on suctioning noted more at this time.
[2019-05-27] MEDS ORDERED: LORAZEPAM 2 MG/1 ML VIAL IV STA (16:08)
--- NOTE | 2019-05-27 16:10 | NUR ---
Briefly gave overview of reported EEG to Dr. Albarran which is at bedside that tech observed an occipital seizure during study. Received orders for ativan 2mg stat once, and keppra 500mg now, and increase keppra IV daily to 1500mg q12hr.
[2019-05-27] MEDS ORDERED: LEVETIRACETAM IV 500 MG in IV DEXTROSE 5% 100 ML IV ONE (16:15)
--- NOTE | 2019-05-27 17:20 | NUR ---
pt remains on full vent support, no vent changes made during shift. thoracentesis performed this afternoon without incident RT stand-by during procedure. While performing oral care, small bite tyler noted to lips, pt appears to be uncontrollably biting down on ETT, cleaned and applied moisturizer to lips. pt's RN notified.
[2019-05-27] MEDS: CLOTRIMAZOLE 1% CREAM 30 GM TUBE TOP SCH (17:27)
--- NOTE | 2019-05-27 18:00 | NUR ---
Neuro check, patient continues to be minimally responsive to external stimuli but more than prior assessment, no eye opening, pupillary response is sluggish, cough/gag on suctioning noted more at this time.
--- NOTE | 2019-05-27 18:54 | NUR ---
Report given to night shift supervisor nurse, patient on montesinos vent a/c 12, TV 500 Peep 5, Fio2 50%. Patient has godfrey draining, Rectal tube, R IJ line with D51/2 infusing 75cc/hr, Levophed 5mcg/min. Patient appears to be comfortable on her sedation vacation, EEG Performed and showed a seizure activity. Patient has 2+ edema on bilateral hads and feet. All needs met.
--- NOTE | 2019-05-27 19:45 | NUR ---
Pt received on continuous mechanical ventilation via 7.5 ETT secured at 23cm lip line. Pt is on Lou vent with ordered settings of AC-12, VT-500, PEEP+5, FIO2-50% Tolerating vent settings well. ETT secured with AnchorFast device. ETT moved periodically per hospital policy. No signs or symptoms of respiratory distress noted. Sxn'd small amounts of yellowish secretions. Oral care done. HME changed. Vent alarm parameters checked, on and audible. Bag/valve/mask at bedside. Vent plugged into red emergency outlet.
--- NOTE | 2019-05-27 20:00 | NUR ---
no seizure noted
--- NOTE | 2019-05-27 20:00 | NUR ---
patient's restraint dicontinued , paient is only responsive to deep pain
--- NOTE | 2019-05-27 20:00 | NUR ---
NGT CHECKED PLACEMENT AUSCULTATE, ASPIRATED , INTACT , NO RESIDUAL
--- NOTE | 2019-05-27 20:00 | NUR ---
patient stomach is distended
[2019-05-27] MEDS ORDERED: LEVETIRACETAM IV 1,500 MG in IV DEXTROSE 5% 100 ML IV SCH (21:00)
--- NOTE | 2019-05-27 22:00 | NUR ---
no seizure noted
--- NOTE | 2019-05-27 22:00 | NUR ---
* Maintains vital signs WNL * Maintains optimal lab values patiewnt is on antibiotics Addendum: 05/27/19 at 2203 by ALBERTO GREENWOOD RN Amended: Kaiden added. Addendum: 05/27/19 at 2204 by ALBERTO GREENWOOD RN Amended: Kaiden added.
--- NOTE | 2019-05-27 22:01 | NUR ---
No n/v/d/c, lab work being check daily and corrections being done and provided for abnormal values Addendum: 05/27/19 at 3 by ALBERTO GREENWOOD RN Amended: Links added. Addendum: 05/27/19 at 4 by ALBERTO GREENWOOD RN Amended: Links added.
--- NOTE | 2019-05-27 22:07 | NUR ---
Exhibits granulation/healing at site * Exhibits decreased drainage at site * Exhibits no s/s of infection * Exhibits a decrease in lesion size * Maintains nutritional status wound care nurse had a follow up today and changed nystatin powder to lotrimin cream for groin and sacrum Addendum: 05/27/19 at 2208 by ALBERTO GREENWOOD RN Amended: Links added.
[2019-05-28] VITALS (82 sets, daily range): BP systolic 87–118; BP diastolic 33–75
--- NOTE | 2019-05-28 | NUR ---
no seizure noted
--- NOTE | 2019-05-28 | NUR ---
NGT PLACEMENT CHECKED , AUSCULTATED AND ASPIRATED INTACT
--- NOTE | 2019-05-28 02:00 | NUR ---
no seizure noted
--- NOTE | 2019-05-28 02:00 | NUR ---
NGT PLACEMENT CHECKED AND AUSCULTATED , INTACT
--- NOTE | 2019-05-28 04:00 | NUR ---
NGT PLACEMENT CHECKED AUSCULTATED AND ASPIRATED INTACT
[2019-05-28 04:59] LABS: BASOPHILS # (AUTO) 0.2 K/uL (0.0-8.0); BASOPHILS % (AUTO) 1.2 % (0.0-2.0); EOSINOPHILS # (AUTO) 0.6 K/uL (0.0-0.7); EOSINOPHILS % (AUTO) 3.3 % (0.0-7.0); HEMATOCRIT 30.4 % (31.2-41.9); HEMOGLOBIN 9.8 g/dL (10.9-14.3); LYMPHOCYTES # (AUTO) 3.4 K/uL (20.0-40.0); LYMPHOCYTES % (AUTO) 19.7 % (20.5-51.5); MEAN CORPUSCULAR HEMOGLOBIN 32.3 uug (24.7-32.8); MEAN CORPUSCULAR HGB CONC 32 g/dL (32.3-35.6); MEAN CORPUSCULAR VOLUME 100.7 fL (75.5-95.3); MONOCYTES # (AUTO) 2.9 K/uL (2.0-10.0); MONOCYTES % (AUTO) 16.5 % (0.0-11.0); NEUTROPHILS # (AUTO) 10.3 K/uL (1.8-8.9); NEUTROPHILS % (AUTO) 59.3 % (38.5-71.5); PLATELET COUNT (AUTO) 313 K/uL (179-408); RED BLOOD CELL COUNT(AUTO) 3.02 MIL/uL (3.63-4.92); WHITE BLOOD COUNT (AUTO) 17.3 K/uL (3.8-11.8)
[2019-05-28 05:06] LABS: BILIRUBIN,TOTAL 1.5 mg/dL (0.2-1.0); CREATININE 0.7 mg/dL (0.6-1.3); MAGNESIUM 1.8 mg/dL (1.8-2.4); PHOSPHOROUS 3.2 mg/dL (2.5-4.9); POTASSIUM 3.7 mmol/L (3.5-5.1); TOTAL PROTEIN, SERUM 6.1 g/dL (6.4-8.2)
--- NOTE | 2019-05-28 06:00 | NUR ---
NGT PLACEMENT AUSCULTATED AND ASPIRATED , INTACT , NO SEIZURE NOTED
[2019-05-28 06:12] LABS: EOSINOPHILS % (MANUAL) 6 % (0-8); LYMPHOCYTES % (MANUAL) 22 % (20-40); MONOCYTES % (MANUAL) 7 % (2-10); NEUTROPHILS % (MANUAL) 65 % (42-75)
--- NOTE | 2019-05-28 06:24 | NUR ---
NO SEIZURE NOTED, PROPOFOL ON HOLD SINCE 05/27/19 03: 30 AM
--- NOTE | 2019-05-28 07:45 | NUR ---
Upon initial head to toe assessment: Neurowise patient LAUREN gag and cough reflex present. With oral care patient noted to be bitting and putting pressure to ETT. noted to be dented at teeth line. Upon physical inspection a tooth found stick to her chest area, picture taken and tooth placed on safety bag. At this time Dr. Albarran called to be notified of findings, orders to resume propofol at to titrate to pt's comfort.
--- NOTE | 2019-05-28 07:48 | NUR ---
FIO2 drop to 40% at this time pt's saturation above 95%. No respiratory distress noted.
[2019-05-28] MEDS: FOLIC ACID 1 MG TABLET NG SCH (08:51)
[2019-05-28] MEDS: MULTIVITAMINS,THERAPEUTIC TABLET NG SCH (08:51)
[2019-05-28] MEDS: PANTOPRAZOLE SODIUM 40 MG VIAL IV SCH ×2 (08:51→20:57)
[2019-05-28] MEDS: PHENYTOIN 100 MG/4 ML UDC NG SCH ×3 (08:52→17:14)
[2019-05-28] MEDS: LACTULOSE 20 G/30 ML LIQUID UDC NG SCH ×3 (08:52→17:10)
[2019-05-28] MEDS: THIAMINE HCL 100 MG TABLET NG SCH (08:52)
[2019-05-28] MEDS: PROPOFOL 100 ML IV PRN ×3 (08:53→20:52)
[2019-05-28] MEDS: CLOTRIMAZOLE 1% CREAM 30 GM TUBE TOP SCH ×2 (08:55→17:11)
[2019-05-28] MEDS: SILVER SULFADIAZINE 1% CREAM 50 GM TP SCH ×2 (08:55→20:56)
[2019-05-28] MEDS ORDERED: LEVETIRACETAM IV 500 MG in IV DEXTROSE 5% 100 ML IV SCH ×6 (09:00)
[2019-05-28] MEDS: IV D5 1/2 NS 1000 ML 1,000 ML IV PRN (11:32)
[2019-05-28] MEDS: VITAL AF 1.2 1,000 ML LIQUID GT PRN (11:52)
[2019-05-28] MEDS: NOREPINEPHRINE BITARTRATE 8 MG in IV DEXTROSE 5% 500 ML IV PRN (13:41)
[2019-05-28] MEDS: CEFTRIAXONE 2 G in IV DEXTROSE 5% 100 ML IV SCH (14:19)
--- NOTE | 2019-05-28 15:00 | NUR ---
pulmonary services, Dr. Tmibo Elmore. in the unit to see and examine patient, full report see order hx.
--- NOTE | 2019-05-28 18:00 | NUR ---
PT REMAINS ON MECHANICAL VENTILATION, TOLERATING VENT SETTINGS WELL, NO RESPIRATORY DISTRESS NOTED. NO VENT CHANGES. BVM AT BEDSIDE. WILL CONTINUE VENT MANAGEMENT.
--- NOTE | 2019-05-28 18:00 | NUR ---
Attending physician in the unit to see and examine patient, full report given orders to continue with care plan received.
--- NOTE | 2019-05-28 20:15 | NUR ---
CLINICAL PHARMACY NOTE:VANCOMYCIN DOSING Request for vancomycin dosing on 54 y/o female 170.18cm 81.64KG for documented infection Temp 98.8 BUN 15 Scr 0.7 WBC 17.3 also on Cefepime Start vancomycin 1250mg ivpb Q12h estimate trough 15. Will order trough level prior to 4th dose. Will continue to monitor
[2019-05-28] MEDS: LEVETIRACETAM IV 1,500 MG in IV DEXTROSE 5% 100 ML IV SCH (20:55)
[2019-05-28] MEDS: CEFEPIME HCL 1 G in IV DEXTROSE 5% 50 ML IV SCH (22:08)
[2019-05-28] MEDS: VANCOMYCIN IV 1,250 MG in IV DEXTROSE 5% 250 ML IV SCH (23:21)
[2019-05-29] VITALS (81 sets, daily range): BP systolic 87–124; BP diastolic 46–71
[2019-05-29 05:15] LABS: BILIRUBIN,TOTAL 1.2 mg/dL (0.2-1.0); CREATININE 0.8 mg/dL (0.6-1.3); MAGNESIUM 1.7 mg/dL (1.8-2.4); PHOSPHOROUS 3.7 mg/dL (2.5-4.9); POTASSIUM 3.6 mmol/L (3.5-5.1); TOTAL PROTEIN, SERUM 6.1 g/dL (6.4-8.2)
[2019-05-29 05:16] LABS: BASOPHILS # (AUTO) 0.1 K/uL (0.0-8.0); BASOPHILS % (AUTO) 0.7 % (0.0-2.0); EOSINOPHILS # (AUTO) 0.4 K/uL (0.0-0.7); HEMATOCRIT 30.7 % (31.2-41.9); HEMOGLOBIN 9.8 g/dL (10.9-14.3); LYMPHOCYTES # (AUTO) 2.6 K/uL (20.0-40.0); LYMPHOCYTES % (AUTO) 18.7 % (20.5-51.5); MEAN CORPUSCULAR HEMOGLOBIN 32.1 uug (24.7-32.8); MEAN CORPUSCULAR HGB CONC 32 g/dL (32.3-35.6); MEAN CORPUSCULAR VOLUME 100.4 fL (75.5-95.3); MONOCYTES # (AUTO) 2.6 K/uL (2.0-10.0); MONOCYTES % (AUTO) 18.1 % (0.0-11.0); NEUTROPHILS # (AUTO) 8.4 K/uL (1.8-8.9); NEUTROPHILS % (AUTO) 59.5 % (38.5-71.5); PLATELET COUNT (AUTO) 303 K/uL (179-408); RED BLOOD CELL COUNT(AUTO) 3.06 MIL/uL (3.63-4.92); WHITE BLOOD COUNT (AUTO) 14.1 K/uL (3.8-11.8)
[2019-05-29] MEDS: IV D5 1/2 NS 1000 ML 1,000 ML IV PRN (05:32)
[2019-05-29] MEDS: CEFEPIME HCL 1 G in IV DEXTROSE 5% 50 ML IV SCH ×2 (05:32→15:51)
[2019-05-29 06:22] LABS: EOSINOPHILS % (MANUAL) 2 % (0-8); LYMPHOCYTES % (MANUAL) 23 % (20-40); MONOCYTES % (MANUAL) 19 % (2-10); NEUTROPHILS % (MANUAL) 56 % (42-75)
[2019-05-29] MEDS: FOLIC ACID 1 MG TABLET NG SCH (08:11)
[2019-05-29] MEDS: MULTIVITAMINS,THERAPEUTIC TABLET NG SCH (08:11)
[2019-05-29] MEDS: LACTULOSE 20 G/30 ML LIQUID UDC NG SCH ×3 (08:11→17:19)
[2019-05-29] MEDS: THIAMINE HCL 100 MG TABLET NG SCH (08:11)
[2019-05-29] MEDS: PANTOPRAZOLE SODIUM 40 MG VIAL IV SCH ×2 (08:11→21:14)
[2019-05-29 08:12] LABS: ABG BASE EXCESS -4.2 mmol/L; ABG HCO3 19.4 mmol/L; ABG PCO2 30.9 mmHg (35.0-45.0); ABG PH 7.416 (7.350-7.450); ABG PO2 89.8 mmHg (75.0-100.0); ABG SITE LEFT RADIAL; ABG TOTAL HEMOGLOBIN 11.3 G/dL (12.0-16.0); COHb 0.9 % (0.5-1.5); MetHb 0.1 % (0.0-1.5); O2Hb 96.2 % (94.0-97.0); VENT MODE VENT - A/C; VT, ABG 500 mL
[2019-05-29] MEDS: SILVER SULFADIAZINE 1% CREAM 50 GM TP SCH ×2 (08:12→21:15)
[2019-05-29] MEDS: CLOTRIMAZOLE 1% CREAM 30 GM TUBE TOP SCH ×2 (08:12→17:20)
[2019-05-29] MEDS: LEVETIRACETAM IV 1,500 MG in IV DEXTROSE 5% 100 ML IV SCH ×2 (08:14→21:14)
[2019-05-29] MEDS: PHENYTOIN 100 MG/4 ML UDC NG SCH ×3 (08:15→17:19)
[2019-05-29] MEDS ORDERED: MAGNESIUM SULFATE/D5W 100 ML IV SCH ×2 (09:30→09:44)
[2019-05-29] MEDS ORDERED: PHYTONADIONE 10 MG/1 ML AMPUL SQ ONE (09:30)
[2019-05-29] MEDS ORDERED: POTASSIUM CHLORIDE 50 ML IV SCH (09:30)
[2019-05-29] MEDS: VANCOMYCIN IV 1,250 MG in IV DEXTROSE 5% 250 ML IV SCH (11:29)
[2019-05-29] MEDS: PROPOFOL 100 ML IV PRN (13:26)
--- NOTE | 2019-05-29 15:00 | NUR ---
Interventional radiologist Dr. Gabriel Kraus in the unit and at this time paracentesis done pt. tolerated procedure well. Dr. Bishop also ultrasound right lung and as stated by him "not that much fluid to be tap". and paracentesis done. . Been assisted by Yoanna Buyapowa. 15 minutes later Pt. tolerating well no sob, stable sbp.
[2019-05-29] MEDS: NOREPINEPHRINE BITARTRATE 8 MG in IV DEXTROSE 5% 500 ML IV PRN (15:50)
--- NOTE | 2019-05-29 15:59 | NUR ---
CLINICAL PHARMACY NOTE:VANCOMYCIN DOSING Request for vancomycin dosing on 54 y/o female 170.18cm 81.64KG for documented infection Temp 98.9 BUN 18 Scr 0.8 WBC 14.1 also on Cefepime Will continue vancomycin 1250mg ivpb Q12h estimate trough 15. Trough due tomorrow at 1030. Will check when available and adjust as needed. Will continue to monitor
--- NOTE | 2019-05-29 16:05 | NUR ---
At this time paracentesis finished, with a total of 7,700 cc total out-put
[2019-05-29] MEDS: VITAL AF 1.2 1,000 ML LIQUID NG PRN (16:34)
[2019-05-29] MEDS ORDERED: ALBUMIN HUMAN 25% 50 ML IV ONE (20:45)
[2019-05-30] VITALS (74 sets, daily range): BP systolic 76–113; BP diastolic 41–68
[2019-05-30] MEDS: VANCOMYCIN IV 1,250 MG in IV DEXTROSE 5% 250 ML IV SCH (00:05)
[2019-05-30] MEDS: CEFEPIME HCL 1 G in IV DEXTROSE 5% 50 ML IV SCH ×4 (00:05→21:06)
--- NOTE | 2019-05-30 00:27 | NUR ---
PT ON CONT JACOBSEN VENT WITH 7.5 ET/TUBE IN PLACE AND SECURED, WITH ANCHOR FAST, ROTATE Q2 HOURS, SUCTIONED LIGHT TINGE PALE YELL SPUTUM. CHECK CUFF, CHANGE HME, ORAL CARE DONE, ALL VENT ALARMS GOOD, NO VENT CHANGES MADE, PT DOES ASSIST AT TIMES, NO VENT CHANGES MADE, AMBU BAG AT BEDSIDE,. Maame DUQUEP Addendum: 05/30/19 at 0030 by SAMEERA LI RT Amended: Links added.
[2019-05-30] MEDS: PROPOFOL 100 ML IV PRN ×3 (02:01→21:39)
[2019-05-30] MEDS: IV D5 1/2 NS 1000 ML 1,000 ML IV PRN ×2 (02:02→18:08)
[2019-05-30 05:44] LABS: BASOPHILS # (AUTO) 0.1 K/uL (0.0-8.0); EOSINOPHILS # (AUTO) 0.3 K/uL (0.0-0.7); EOSINOPHILS % (AUTO) 2.1 % (0.0-7.0); HEMATOCRIT 31.3 % (31.2-41.9); LYMPHOCYTES # (AUTO) 2.7 K/uL (20.0-40.0); LYMPHOCYTES % (AUTO) 18.9 % (20.5-51.5); MEAN CORPUSCULAR HEMOGLOBIN 32.7 uug (24.7-32.8); MEAN CORPUSCULAR HGB CONC 32 g/dL (32.3-35.6); MONOCYTES # (AUTO) 2.9 K/uL (2.0-10.0); MONOCYTES % (AUTO) 20.5 % (0.0-11.0); NEUTROPHILS # (AUTO) 8.1 K/uL (1.8-8.9); NEUTROPHILS % (AUTO) 57.5 % (38.5-71.5); PLATELET COUNT (AUTO) 318 K/uL (179-408); RED BLOOD CELL COUNT(AUTO) 3.04 MIL/uL (3.63-4.92); WHITE BLOOD COUNT (AUTO) 14.1 K/uL (3.8-11.8)
[2019-05-30 05:54] LABS: MAGNESIUM 1.9 mg/dL (1.8-2.4); PHOSPHOROUS 4.2 mg/dL (2.5-4.9); POTASSIUM 4.2 mmol/L (3.5-5.1)
[2019-05-30 07:08] LABS: EOSINOPHILS % (MANUAL) 2 % (0-8); LYMPHOCYTES % (MANUAL) 20 % (20-40); MONOCYTES % (MANUAL) 17 % (2-10); NEUTROPHILS % (MANUAL) 61 % (42-75)
--- NOTE | 2019-05-30 07:20 | NUR ---
Received pt. on ventilator A/C 12; tv 500;Peep +5;FIO2 40% with saturation above 95% no SOB or distress noted at this time. ETT 7.5 23LL. Swelling and bleeding at the tip of the tongue noted oral care provided and mouth block inserted and left taped to prevent further damage. Levophed running at 3mcg/min. with sbp just above borderline, see VS sheet doc. NG tube in place godfrey to gravity. Abdominal area with old puncture paracentesis site noted to be draining massive amounts of yellowish fluid, patient bed and gown wet A.M care provided. pt. with temp of 99.8 cooling measures implemented, medicated, and temp lowered to 99.0. Will continue to monitor
--- NOTE | 2019-05-30 07:35 | NUR ---
PT RECEIVED ORALLY INTUBATED WITH A SIZE 7.5ETT SECURED WITH ANCHOR-FAST APPROX. 23CM AT THE LIP. PT IS ON CMV ON A JACOBSEN VENT, PT IS ON SETTINGS OF A/C 12, VT 500, PEEP +5, AND 40% FIO2. VENT PARAMETERS AND ALARMS CHECKED, ALARMS ARE AUDIBLE. ETT MOVED TO THE LEFT SIDE OF MOUTH, OPA PLACED, DUE TO TONGUE SWELLING, MILD ORAL BLEEDING NOTED. RN IS AWARE. PT IS TOLERATING VENT WELL, NO RESP. DISTRESS NOTED. BVM AT BEDSIDE. VENT PLUGGED INTO RED OUTLET. WILL CONTINUE TO MONITOR.
[2019-05-30 07:55] LABS: ABG BASE EXCESS -3.8 mmol/L; ABG HCO3 20.3 mmol/L; ABG PCO2 33.3 mmHg (35.0-45.0); ABG PH 7.402 (7.350-7.450); ABG PO2 98.1 mmHg (75.0-100.0); ABG SITE LEFT RADIAL; ABG TOTAL HEMOGLOBIN 11.2 G/dL (12.0-16.0); COHb 0.7 % (0.5-1.5); MetHb 0.2 % (0.0-1.5); O2Hb 97.1 % (94.0-97.0); VENT MODE VENT - A/C; VT, ABG 500 mL
--- NOTE | 2019-05-30 08:00 | NUR ---
With sedation vacation and even before patient noted to be bitting and having swollen tongue which was found bleeding. After 15mi. of sedation vacation propofol titrated up to 20mcg/kg/min.
[2019-05-30] MEDS: FOLIC ACID 1 MG TABLET NG SCH (08:10)
[2019-05-30] MEDS: PANTOPRAZOLE SODIUM 40 MG VIAL IV SCH ×2 (08:10→20:37)
[2019-05-30] MEDS: THIAMINE HCL 100 MG TABLET NG SCH (08:10)
[2019-05-30] MEDS: LACTULOSE 20 G/30 ML LIQUID UDC NG SCH ×3 (08:10→16:48)
[2019-05-30] MEDS: MULTIVITAMINS,THERAPEUTIC TABLET NG SCH (08:10)
[2019-05-30] MEDS: ACETAMINOPHEN 650 MG SUPP.RECT RC PRN (08:10)
[2019-05-30] MEDS: PHENYTOIN 100 MG/4 ML UDC NG SCH ×3 (08:12→16:48)
[2019-05-30] MEDS: LEVETIRACETAM IV 1,500 MG in IV DEXTROSE 5% 100 ML IV SCH ×2 (08:18→20:37)
[2019-05-30] MEDS: SILVER SULFADIAZINE 1% CREAM 50 GM TP SCH ×2 (08:19→20:39)
[2019-05-30] MEDS: CLOTRIMAZOLE 1% CREAM 30 GM TUBE TOP SCH ×2 (08:20→16:49)
[2019-05-30 10:25] LABS: *BILIRUBIN,URIN NEGATIVE (NEGATIVE); *BLOOD, URINE NEGATIVE (NEGATIVE); *CLARITY,URINE CLOUDY (CLEAR); *COLOR,URINE YELLOW (YELLOW); *KETONES,URINE TRACE (NEGATIVE); *UROBILINOGEN,URINE 0.2 E.U./dl (NORMAL); LEUKOCYTE ESTERASE ,URINE 1+ (NEGATIVE); NITRITE, URINE NEGATIVE (NEGATIVE); UGLUCOSE NEGATIVE (NEGATIVE)
--- NOTE | 2019-05-30 10:25 | NUR ---
Neurology services, Dr. Albarran in the unit to see and examine patient, report given and orders to continue with care plan.
[2019-05-30 10:33] LABS: BACTERIA,URINE MODERATE /HPF (NONE SEEN); RBC,URINE 0-3 /HPF (0-3); SQUAMOUS EPITHELIAL CELL,UR FEW /HPF (NONE SEEN); YEAST,URINE MODERATE /HPF (NONE SEEN)
[2019-05-30] MEDS: VITAL AF 1.2 1,000 ML LIQUID GT PRN (10:52)
--- NOTE | 2019-05-30 11:15 | NUR ---
Pulmonary services, Dr. Rodriguez in the unit to see and examine patient, full report given orders to continue with current care plan received.
[2019-05-30] MEDS ORDERED: FUROSEMIDE 20 MG/2 ML VIAL IV ONE (12:00)
--- NOTE | 2019-05-30 12:54 | NUR ---
CLINICAL PHARMACY NOTE:VANCOMYCIN DOSING To continue vancomycin dosing on 54 y/o female 170.18cm 81.64KG for documented infection Temp 99 BUN 27 Scr 1.0 WBC 14.1 also on Cefepime Trough today at 1030: 23 Assessment/Plan Based on trough, will adjust regimen to vancomycin 1250mg q16h, first dose tonight at 2100, for new estimated trough of 15.1. Will order trough before 4th scheduled dose (not ordered yet). Will follow renal function as well and adjust if needed. Will continue to monitor
[2019-05-30] MEDS: NOREPINEPHRINE BITARTRATE 8 MG in IV DEXTROSE 5% 500 ML IV PRN (15:32)
[2019-05-30] MEDS ORDERED: VANCOMYCIN IV 1,250 MG in IV DEXTROSE 5% 250 ML IV SCH ×2 (16:00→21:00)
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
--- NOTE | 2019-05-30 17:29 | NUR ---
Attending physician, Jane Lopez. in the unit to see and examine patient, full report given; orders to continue with care plan received.
--- NOTE | 2019-05-30 19:30 | NUR ---
rounds made patient in bed ,eyes close ,no spontaneous movement noted upper and lower extremities weakness/flaccid. orally intubated ac/12/ tv500 fio2 40% peep of 5 . saturation 98 % rr 18, patient lightly sedated on propofol at 20 mg/kg/min . when off sedation patient bites on the ett tube patient doenst follow commands ,with oral airway in placed /bite block . suction via ett and via mouth oral care done .tube feeding via the right nare NGT in progress with vital 1.2 at 75 ml/hour for 20 hours . flushed ngt patent very minimal residual about 15 ml . aspiration precaution observed ,hob up .flexiseal patent with yellowish brownish liquid stool .Levophed drip in progress at 5 mcg/min to keep sbp >90 mm/hg ,bp no at 95/50 hr 72.continue to monitor bp q15 minutes .continue to monitor v/s and level of comfort .
--- NOTE | 2019-05-30 20:45 | NUR ---
patient son came and updated with patient condition . son asked for ru melissa no. given Se[facility] no service no .
--- NOTE | 2019-05-30 21:30 | NUR ---
due medication antibiotic and Keppra scan and given . turned and reposition patient . offloaded back and elevated upper and lower extremities with pillows ,heels off bed and scds used to ble .
[2019-05-30] MEDS: ACETAMINOPHEN 325 MG TABLET PO PRN (23:25)
--- NOTE | 2019-05-30 23:31 | NUR ---
Tylenol prn given c/o fever temp 100.4F , removed blankets. will continue to monitor patient temp .
[2019-05-31] VITALS (94 sets, daily range): BP systolic 64–105; BP diastolic 41–60
--- NOTE | 2019-05-31 04:00 | NUR ---
am care done bath patient changed soiled linens and gown . applied Lotrimin cream to bilateral groin area ,sacral area also applied Mycostatin powder .Mepilex to sacral area for preventive , oral care done ,suction via mouth and via ett .f/c done . checked temp 100.4 , placed ice packs to bilateral armpit area, removed blanket and air out patient will continue to monitor temp .
[2019-05-31 05:04] LABS: BASOPHILS # (AUTO) 0.1 K/uL (0.0-8.0); BASOPHILS % (AUTO) 0.6 % (0.0-2.0); EOSINOPHILS # (AUTO) 0.5 K/uL (0.0-0.7); EOSINOPHILS % (AUTO) 3.4 % (0.0-7.0); HEMATOCRIT 31.6 % (31.2-41.9); HEMOGLOBIN 10.2 g/dL (10.9-14.3); LYMPHOCYTES # (AUTO) 2.9 K/uL (20.0-40.0); LYMPHOCYTES % (AUTO) 18.1 % (20.5-51.5); MEAN CORPUSCULAR HEMOGLOBIN 32.4 uug (24.7-32.8); MEAN CORPUSCULAR HGB CONC 32 g/dL (32.3-35.6); MEAN CORPUSCULAR VOLUME 100.9 fL (75.5-95.3); MONOCYTES # (AUTO) 3.5 K/uL (2.0-10.0); NEUTROPHILS % (AUTO) 56.3 % (38.5-71.5); PLATELET COUNT (AUTO) 345 K/uL (179-408); RED BLOOD CELL COUNT(AUTO) 3.13 MIL/uL (3.63-4.92); WHITE BLOOD COUNT (AUTO) 16.1 K/uL (3.8-11.8)
[2019-05-31 05:12] LABS: CREATININE 1.4 mg/dL (0.6-1.3); MAGNESIUM 2.2 mg/dL (1.8-2.4); MONOCYTES % (AUTO) 21.6 % (0.0-11.0); PHOSPHOROUS 4.9 mg/dL (2.5-4.9)
[2019-05-31] MEDS: CEFEPIME HCL 1 G in IV DEXTROSE 5% 50 ML IV SCH ×3 (05:42→22:17)
[2019-05-31 07:57] LABS: EOSINOPHILS % (MANUAL) 7 % (0-8); LYMPHOCYTES % (MANUAL) 30 % (20-40); MONOCYTES % (MANUAL) 14 % (2-10); NEUTROPHILS % (MANUAL) 49 % (42-75)
[2019-05-31 08:00] LABS: ABG BASE EXCESS -4.1 mmol/L; ABG HCO3 19.9 mmol/L; ABG PH 7.399 (7.350-7.450); ABG PO2 84.6 mmHg (75.0-100.0); ABG SITE LEFT BRACHIAL; ABG TOTAL HEMOGLOBIN 11.3 G/dL (12.0-16.0); MetHb 0.2 % (0.0-1.5); O2Hb 95.7 % (94.0-97.0); VENT MODE VENT - A/C; VT, ABG 500 mL
[2019-05-31] MEDS: PANTOPRAZOLE SODIUM 40 MG VIAL IV SCH ×2 (08:04→21:11)
[2019-05-31] MEDS: LACTULOSE 20 G/30 ML LIQUID UDC NG SCH ×3 (08:04→17:23)
[2019-05-31] MEDS: PHENYTOIN 100 MG/4 ML UDC NG SCH ×3 (08:05→17:23)
[2019-05-31] MEDS: FOLIC ACID 1 MG TABLET NG SCH (08:05)
[2019-05-31] MEDS: MULTIVITAMINS,THERAPEUTIC TABLET NG SCH (08:05)
[2019-05-31] MEDS: THIAMINE HCL 100 MG TABLET NG SCH (08:05)
[2019-05-31] MEDS: SILVER SULFADIAZINE 1% CREAM 50 GM TP SCH ×2 (08:06→21:10)
[2019-05-31] MEDS: CLOTRIMAZOLE 1% CREAM 30 GM TUBE TOP SCH ×2 (08:06→17:24)
[2019-05-31] MEDS: PROPOFOL 100 ML IV PRN ×2 (08:13→21:31)
[2019-05-31] MEDS: LEVETIRACETAM 500 MG/5 ML LIQUID UDC GT SCH ×2 (08:19→21:08)
--- NOTE | 2019-05-31 08:53 | NUR ---
CLINICAL PHARMACY NOTE:VANCOMYCIN DOSING S: To continue vancomycin dosing on 54 y/o female for documented infection O: Temp 100.4 BUN 35 Scr 1.4 WBC 16.1 Trough today at 1030: 23 wt 81.6kg ht 170 cm Assessment/Plan Since srcr has increased, will adjust regimen to vancomycin 1250mg IVPB q23h, 2nd dose tonight at 2000, for new estimated trough of 15.6 mcg/ml. Will order trough before 4th scheduled dose (not ordered yet). Will follow renal function as well and adjust if needed. Will continue to monitor
--- NOTE | 2019-05-31 09:45 | NUR ---
Respiratory services, Dr. Rodriguez in the unit to see and examine patient full report given. informed that patient does not follow commands and with longer periods of sedation vacation instead, pt. clenches her teeth and bites of her tongue and ETT. and that she lost one front tooth. and at this time with him present in the unit sedations vacation given to pt. for the 2nd time, and after 30 minutes patient did not respond instead just started to bite ett. small laceration noted to her tongue which remains protected with mouth block. Orders to resume propofol receive. All this time present.
[2019-05-31] MEDS: VITAL AF 1.2 1,000 ML LIQUID GT PRN (12:26)
--- NOTE | 2019-05-31 13:45 | NUR ---
Sum. Alysia Morrison in the unit to follow up with patient.
--- NOTE | 2019-05-31 14:00 | NUR ---
ID services, Alysia Mathew in the unit to see and examine patient.
[2019-05-31] MEDS: NOREPINEPHRINE BITARTRATE 8 MG in IV DEXTROSE 5% 500 ML IV PRN (17:28)
--- NOTE | 2019-05-31 19:30 | NUR ---
Report received. Patient orally intubated and to mechanical ventilator with same settings; sat 98-100% on FIO2=40%. On continuous Levophed and Propofol drips via RIJ TLC. Assessment done; see flow sheet for details. Addendum: 06/01/19 at 0656 by MERY LUU RN Amended: Links added.
[2019-05-31] MEDS: VANCOMYCIN IV 1,250 MG in IV DEXTROSE 5% 250 ML IV SCH (20:14)
[2019-05-31] MEDS ORDERED: FLUCONAZOLE 200 MG/100 ML PIGGYBACK ONE (20:23)
[2019-05-31] MEDS: FLUCONAZOLE 200 MG/NS 100ML IV 100 MG in PREMIXED 1 EACH IV SCH (21:11)
--- NOTE | 2019-05-31 22:00 | NUR ---
Levophed drip titrated up to 6 mcg/min. BPs monitored closely.
[2019-06-01] VITALS (96 sets, daily range): BP systolic 93–113; BP diastolic 45–65
--- NOTE | 2019-06-01 02:46 | NUR ---
PT ON CONT JACOBSEN VENT IN PLACE WITH 7.5 ET/TUBE IN PLACE, ANCHOR FAST IN PLACE, WITH SAME CURRENT VENT SETTINGS, FIO2 @ 40%, PT DOES ASSIST AT TIMES, FAR COUGH EFFORT, SUCTIONED VERY LIGHT PALE YELL TINGE SECRETIONS, CHANGE HME, ALL VENT ALARMS GOOD, NO VENT CHANGES MADE, PT STABLE, AMBU BAG AT BEDSIDE.Maame DUQUEP Addendum: 06/01/19 at 0248 by SAMEERA LI RT Amended: Links added.
[2019-06-01] MEDS: IV D5 1/2 NS 1000 ML 1,000 ML IV PRN ×2 (03:18→18:28)
--- NOTE | 2019-06-01 03:40 | NUR ---
Sedation vacation done. Patient monitored closely.
--- NOTE | 2019-06-01 05:00 | NUR ---
Propofol drip off since 339; patient with mild withdrawal to pain and cough reflex during suctioning. No seizures.
[2019-06-01 05:18] LABS: BASOPHILS # (AUTO) 0.1 K/uL (0.0-8.0); BASOPHILS % (AUTO) 0.6 % (0.0-2.0); EOSINOPHILS % (AUTO) 5.7 % (0.0-7.0); HEMATOCRIT 31.5 % (31.2-41.9); HEMOGLOBIN 10.4 g/dL (10.9-14.3); LYMPHOCYTES # (AUTO) 2.5 K/uL (20.0-40.0); LYMPHOCYTES % (AUTO) 13.7 % (20.5-51.5); MEAN CORPUSCULAR HEMOGLOBIN 33.1 uug (24.7-32.8); MEAN CORPUSCULAR HGB CONC 33 g/dL (32.3-35.6); MEAN CORPUSCULAR VOLUME 100.6 fL (75.5-95.3); MONOCYTES # (AUTO) 3.9 K/uL (2.0-10.0); MONOCYTES % (AUTO) 21.7 % (0.0-11.0); NEUTROPHILS # (AUTO) 10.5 K/uL (1.8-8.9); NEUTROPHILS % (AUTO) 58.3 % (38.5-71.5); PLATELET COUNT (AUTO) 335 K/uL (179-408); RED BLOOD CELL COUNT(AUTO) 3.14 MIL/uL (3.63-4.92)
[2019-06-01] MEDS: CEFEPIME HCL 1 G in IV DEXTROSE 5% 50 ML IV SCH ×3 (05:24→22:04)
[2019-06-01 06:11] LABS: BILIRUBIN,TOTAL 1.4 mg/dL (0.2-1.0); CREATININE 1.3 mg/dL (0.6-1.3); MAGNESIUM 2.3 mg/dL (1.8-2.4); PHOSPHOROUS 4.6 mg/dL (2.5-4.9); POTASSIUM 3.9 mmol/L (3.5-5.1)
--- NOTE | 2019-06-01 06:30 | NUR ---
NGT feedings off 0600; will restart by am shift at 1000. Remains on Levophed drip at 6 mcg/min for BP support. Contact isolation maintained pending result of stool C. diff. Saturations above 95% on same vent settings FIO2=40%, ZX=949 ml, PEEP=5 and AC=12.
--- NOTE | 2019-06-01 07:30 | NUR ---
PT RECEIVED ORALLY INTUBATED WITH A SIZE 7.5ETT , APPROX. 23CM AT THE LIP. PT IS ON CURRENT SETTINGS VENT PARAMETERS AND ALARMS CHECKED, ALARMS ARE AUDIBLE. PT IS TOLERATING VENT WELL, NO RESP. DISTRESS NOTED. BVM AT BEDSIDE. VENT PLUGGED INTO RED OUTLET. WILL CONTINUE TO MONITOR.
--- NOTE | 2019-06-01 07:51 | NUR ---
CLINICAL PHARMACY NOTE:VANCOMYCIN DOSING S: To continue vancomycin dosing on 54 y/o female for documented infection (per ID note-Septic shock, Acute resp failure ? aspiration event) O: Temp 97.6 BUN 46 Scr 1.3 WBC 18 Trough on 05/30 at 1030: 23 wt 81.6kg ht 170 cm Assessment/Plan Will continue same dose of vancomycin 1250mg IVPB q23h for today, 3rd dose tonight at 1900, for new estimated trough of 15.6 mcg/ml. Will order trough before 4th scheduled dose (not ordered yet). Will follow renal function as well and adjust if needed. Will continue to monitor
--- NOTE | 2019-06-01 08:00 | NUR ---
had been off propofol drip. patient unresponsive to verbal but only to pain. extremeities are flaccid. has cough reflex.pupils are sluggish at 3mm. and equal. remains on levophed drip to keep sbp >90. ett to vent tv 500 ac 12, peep 5 and fio2 40% Addendum: 06/01/19 at 0958 by LEONARD PATRICK RN Amended: Links added.
[2019-06-01 08:05] LABS: ABG HCO3 16.5 mmol/L; ABG PCO2 27.5 mmHg (35.0-45.0); ABG PH 7.396 (7.350-7.450); ABG PO2 76.9 mmHg (75.0-100.0); ABG SITE LEFT RADIAL; ABG TOTAL HEMOGLOBIN 11.7 G/dL (12.0-16.0); COHb 0.6 % (0.5-1.5); MetHb 0.2 % (0.0-1.5); O2Hb 94.7 % (94.0-97.0); VENT MODE VENT - A/C; VT, ABG 500 mL
[2019-06-01] MEDS: NOREPINEPHRINE BITARTRATE 8 MG in IV DEXTROSE 5% 500 ML IV PRN (08:08)
[2019-06-01] MEDS ORDERED: FUROSEMIDE 20 MG/2 ML VIAL IV ONE (08:15)
[2019-06-01] MEDS: PHENYTOIN 100 MG/4 ML UDC NG SCH ×3 (08:21→17:12)
[2019-06-01] MEDS: LACTULOSE 20 G/30 ML LIQUID UDC NG SCH ×3 (08:22→17:11)
[2019-06-01] MEDS: LEVETIRACETAM 500 MG/5 ML LIQUID UDC GT SCH ×2 (08:22→21:04)
[2019-06-01] MEDS: PANTOPRAZOLE SODIUM 40 MG VIAL IV SCH ×2 (08:22→21:03)
[2019-06-01] MEDS: FOLIC ACID 1 MG TABLET NG SCH (08:23)
[2019-06-01] MEDS: THIAMINE HCL 100 MG TABLET NG SCH (08:23)
[2019-06-01] MEDS: MULTIVITAMINS,THERAPEUTIC TABLET NG SCH (08:23)
[2019-06-01] MEDS: CLOTRIMAZOLE 1% CREAM 30 GM TUBE TOP SCH ×2 (08:34→17:13)
[2019-06-01] MEDS: SILVER SULFADIAZINE 1% CREAM 50 GM TP SCH ×2 (08:35→21:03)
[2019-06-01 09:25] LABS: BAND % (MANUAL) 2 % (0-10); EOSINOPHILS % (MANUAL) 9 % (0-8); LYMPHOCYTES % (MANUAL) 12 % (20-40); MONOCYTES % (MANUAL) 21 % (2-10); NEUTROPHILS % (MANUAL) 56 % (42-75)
[2019-06-01] MEDS: VITAL AF 1.2 1,000 ML LIQUID GT PRN (10:00)
[2019-06-01] MEDS: ACETAMINOPHEN 325 MG TABLET PO PRN ×2 (13:29→17:12)
--- NOTE | 2019-06-01 13:29 | NUR ---
medicated with tylenol fro temp 100.9
--- NOTE | 2019-06-01 17:12 | NUR ---
medicated with tylenol for temp 102.3. carmita HEAD SUGAR REPROCESS OPERATOR for ID called thru exchange and text to inform her of temp. coling mattress applied.
--- NOTE | 2019-06-01 17:30 | NUR ---
seen by dr Izquierdo. orders received. seen by dr priest and dr guy. orders received
--- NOTE | 2019-06-01 18:00 | NUR ---
patient noted to be bleeding from mouth and ngt. ngt feeding held. call to dr Mcmahon per text. awaiting for call back
[2019-06-01] MEDS: VANCOMYCIN IV 1,250 MG in IV DEXTROSE 5% 250 ML IV SCH (18:41)
--- NOTE | 2019-06-01 19:30 | NUR ---
Received pt orally intubated with 7.5ETT~23cm at lip line, on Lou vent with the following settings of AC-12, Vt-500, PEEP+5, FIO2-40%. No s/s of respiratory distress noted. Airway care done, pt responded to physical stimuli(noticed blood in the sputum, RN Nataly notified). HME changed. Resus. bag at bedside. Vent and alarms checked and reset.
--- NOTE | 2019-06-01 19:30 | NUR ---
Report received. Patient comatose, orally intubated and to vent with settings: AC=12, FIO2=40%, PEEP=5 and VU=641 ml. Sat 98-100%. Mckn=905 orally, cooling measures in progress. On Levophed drip for BP support via RIJ TLC. Assessment done; refer to flow sheet for details. Addendum: 06/02/19 at 0039 by MERY LUU RN Amended: Links added. Addendum: 06/02/19 at 0044 by MERY LUU RN Amended: Links added. Addendum: 06/02/19 at 0044 by MERY LUU RN Amended: Links added. Addendum: 06/02/19 at 0046 by MERY LUU RN Amended: Links added. Addendum: 06/02/19 at 0046 by MERY LUU RN Amended: Links added.
--- NOTE | 2019-06-01 20:00 | NUR ---
Seen by Mansi JACOBS. Orders received. Blood cultures done. Flexi seal flushed with ice cold water, ice packs to body areas as cooling measures. Family visited; updated of patient's condition. Addendum: 06/02/19 at 0044 by MERY LUU RN Amended: Links added. Addendum: 06/02/19 at 0044 by MERY LUU RN Amended: Links added. Addendum: 06/02/19 at 0046 by MERY LUU RN Amended: Links added. Addendum: 06/02/19 at 0046 by MERY LUU RN Amended: Links added.
[2019-06-01] MEDS: FLUCONAZOLE 200 MG/NS 100ML IV 100 MG in PREMIXED 1 EACH IV SCH (21:04)
[2019-06-02] VITALS (80 sets, daily range): BP systolic 85–101; BP diastolic 40–59
--- NOTE | 2019-06-02 | NUR ---
Bath given; skin care provided. Temp=98.3 orally. Oral care done with small amounts of bloody secretions. Feedings remain on hold from am shift due to bleeding from NGT. Addendum: 06/02/19 at 0051 by MERY LUU RN Amended: Links added.
[2019-06-02 05:35] LABS: CARBON DIOXIDE 19 mmol/L (21-32); CHLORIDE 111 mmol/L (98-107); CREATININE 1.7 mg/dL (0.6-1.3); GLUCOSE 245 mg/dL (74-106); MAGNESIUM 2.7 mg/dL (1.8-2.4); PHOSPHOROUS 5.4 mg/dL (2.5-4.9); POTASSIUM 3.8 mmol/L (3.5-5.1); UREA NITROGEN, BLOOD 61 mg/dL (7-18)
[2019-06-02 05:46] LABS: BASOPHILS # (AUTO) 0.1 K/uL (0.0-8.0); BASOPHILS % (AUTO) 0.7 % (0.0-2.0); EOSINOPHILS # (AUTO) 0.4 K/uL (0.0-0.7); EOSINOPHILS % (AUTO) 1.8 % (0.0-7.0); HEMATOCRIT 31.4 % (31.2-41.9); HEMOGLOBIN 9.8 g/dL (10.9-14.3); LYMPHOCYTES # (AUTO) 2.9 K/uL (20.0-40.0); LYMPHOCYTES % (AUTO) 12.8 % (20.5-51.5); MEAN CORPUSCULAR HEMOGLOBIN 31.9 uug (24.7-32.8); MEAN CORPUSCULAR HGB CONC 31 g/dL (32.3-35.6); MEAN CORPUSCULAR VOLUME 101.7 fL (75.5-95.3); MONOCYTES % (AUTO) 22.1 % (0.0-11.0); NEUTROPHILS # (AUTO) 14.2 K/uL (1.8-8.9); NEUTROPHILS % (AUTO) 62.6 % (38.5-71.5); PLATELET COUNT (AUTO) 312 K/uL (179-408); RED BLOOD CELL COUNT(AUTO) 3.09 MIL/uL (3.63-4.92); WHITE BLOOD COUNT (AUTO) 22.6 K/uL (3.8-11.8)
--- NOTE | 2019-06-02 06:00 | NUR ---
Had a large amount of green, bloody stools from Flexi seal. Cleaned, skin care provided. Repositioned.
[2019-06-02 06:35] LABS: PHENYTOIN (DILANTIN) > 20.0 ug/mL (10.0-20.0)
--- NOTE | 2019-06-02 07:15 | NUR ---
Remains on Levophed drip at 6 mcg/min. BPs 80's -90's systole. No neuro changes.
[2019-06-02] MEDS: CEFEPIME HCL 1 G in IV DEXTROSE 5% 50 ML IV SCH ×3 (07:36→22:09)
[2019-06-02 07:37] LABS: EOSINOPHILS % (MANUAL) 4 % (0-8); LYMPHOCYTES % (MANUAL) 18 % (20-40); MONOCYTES % (MANUAL) 16 % (2-10); NEUTROPHILS % (MANUAL) 62 % (42-75)
[2019-06-02] MEDS: NOREPINEPHRINE BITARTRATE 8 MG in IV DEXTROSE 5% 500 ML IV PRN ×2 (07:37→23:23)
[2019-06-02 08:04] LABS: ABG BASE EXCESS -7.3 mmol/L; ABG HCO3 16.4 mmol/L; ABG PCO2 27.8 mmHg (35.0-45.0); ABG PH 7.388 (7.350-7.450); ABG PO2 85.3 mmHg (75.0-100.0); ABG SITE LEFT BRACHIAL; ABG TOTAL HEMOGLOBIN 11.2 G/dL (12.0-16.0); MetHb 0.2 % (0.0-1.5); O2Hb 95.3 % (94.0-97.0); VENT MODE VENT - A/C; VT, ABG 500 mL
--- NOTE | 2019-06-02 08:40 | NUR ---
levophed drip titrated up to keep SBP >90 Addendum: 06/02/19 at 0840 by LEONARD PATRICK RN Amended: Links added.
[2019-06-02] MEDS: LACTULOSE 20 G/30 ML LIQUID UDC NG SCH ×3 (08:41→17:23)
[2019-06-02] MEDS: MULTIVITAMINS,THERAPEUTIC TABLET NG SCH (08:41)
[2019-06-02] MEDS: THIAMINE HCL 100 MG TABLET NG SCH (08:41)
[2019-06-02] MEDS: FOLIC ACID 1 MG TABLET NG SCH (08:41)
[2019-06-02] MEDS: PANTOPRAZOLE SODIUM 40 MG VIAL IV SCH ×2 (08:41→20:50)
[2019-06-02] MEDS: CLOTRIMAZOLE 1% CREAM 30 GM TUBE TOP SCH ×2 (08:43→17:23)
[2019-06-02] MEDS: SILVER SULFADIAZINE 1% CREAM 50 GM TP SCH ×2 (08:44→20:52)
[2019-06-02] MEDS: PHENYTOIN 100 MG/4 ML UDC NG SCH (09:00)
[2019-06-02] MEDS: LEVETIRACETAM 500 MG/5 ML LIQUID UDC GT SCH ×2 (09:00→20:50)
--- NOTE | 2019-06-02 09:15 | NUR ---
seen by dr Tirado with orders Addendum: 06/02/19 at 0922 by LEONARD PATRICK RN Amended: Links added.
--- NOTE | 2019-06-02 09:30 | NUR ---
seen by dr Collins aware of elevated bun and creatinine and decreased urine output. Addendum: 06/02/19 at 1438 by LEONARD PATRICK RN Amended: Links added. Addendum: 06/02/19 at 1440 by LEONARD PATRICK RN Amended: Links added. Addendum: 06/02/19 at 1441 by LEONARD PATRICK RN Amended: Links added. Addendum: 06/02/19 at 1442 by LEONARD PATRICK RN Amended: Links added. Addendum: 06/02/19 at 1444 by LEONARD PATRICK RN Amended: Links added.
[2019-06-02] MEDS: IV NS 1000 ML 1,000 ML IV PRN (09:49)
--- NOTE | 2019-06-02 10:30 | NUR ---
seen by dr rtuh. orders received. Addendum: 06/02/19 at 1440 by LEONARD PATRICK RN Amended: Links added. Addendum: 06/02/19 at 1441 by LEONARD PATRICK RN Amended: Links added. Addendum: 06/02/19 at 1442 by LEONARD PATRICK RN Amended: Links added. Addendum: 06/02/19 at 1444 by LEONARD PATRICK RN Amended: Links added.
--- NOTE | 2019-06-02 11:00 | NUR ---
to radiology dept for head ct. and back to room fully monitored Addendum: 06/02/19 at 1444 by LEONRAD PATRICK RN Amended: Links added.
--- NOTE | 2019-06-02 11:00 | NUR ---
seen by REYNALDO Carrillo no orders Addendum: 06/02/19 at 1441 by LEONARD PATRICK RN Amended: Kaiden added. Addendum: 06/02/19 at 1442 by LEONARD PATRICK RN Amended: Kaiden added. Addendum: 06/02/19 at 1444 by LEONARD PATRICK RN Amended: Links added.
--- NOTE | 2019-06-02 12:12 | NUR ---
CLINICAL PHARMACY NOTE:VANCOMYCIN DOSING S: To continue vancomycin dosing on 54 y/o female for documented infection (per ID note-Septic shock, Acute resp failure ? aspiration event) O: Temp 98.9 BUN 61 Scr 1.7 WBC 22.6 Trough on 05/30 at 1030: 23 wt 81.6kg ht 170 cm Assessment/Plan Will continue same dose of vancomycin 1250mg IVPB q23h for today, 3rd dose given last night at 1900, for new estimated trough of 15.6 mcg/ml. Will order trough before 4th scheduled dose ( ordered for tonight at 1730)for further dosing. Will follow renal function as well and adjust if needed. Will continue to monitor Addendum: 06/02/19 at 1832 by SAMEERA MARIO TROUGH LEVEL 33.8 WILL HOLD VANCOMYCIN FOR NOW. DRAW RANDOM LEVEL AT 0600 TOMORROW
[2019-06-02] MEDS ORDERED: PHENYTOIN 100 MG/4 ML UDC NG SCH (13:00)
--- NOTE | 2019-06-02 13:30 | NUR ---
seen by dr priest with no orders Addendum: 06/02/19 at 1442 by LEONARD PATRICK RN Amended: Kaiden added. Addendum: 06/02/19 at 1444 by LEONARD PATRICK RN Amended: Kaiden atkins.
--- NOTE | 2019-06-02 18:04 | NUR ---
PT STABLE ON CURRENT VENTILATOR SETTINGS ALL DAY, ABG WAS DONE IN AM AND SEEN BY DR. SMITH, NO NEW ORDER GIVEN. ASSISTED TO CT SCAN AND BACK TO HER ROOM WITHOUT INCIDENT. SUCTIONED NEEDED. ORAL CARE DONE AND MOVED ET. TUBE EVERY 4 HOURS.
--- NOTE | 2019-06-02 20:00 | NUR ---
RECEIVED PT. OBTUNDED RESPONDING TO DEEP PAINFUL STIMULI. ORALLY INTUBATED TO VENT. AC-12, TV-500,FIO2-40%, PEEP-+5 W/ O2 SAT 99%.NGT ON R NARE IN PLACE &CLAMPED.SUCTIONED VIA ETT & OROPHARYNGEALLY W/ SMALL THICK WHITISH MUCOUS.IVF D51/2NS @ 75CC/HR.VIA R INTERNAL JUJULAR TLC. ON LEVOPHED DRIP @ 8MCQ/MIN.FLEXISEAL INTACT W/ GREENISH STOOL LIQUIDISH. REPOSITIONED ON HER SIDE W/ HOB ELEVATED.
[2019-06-02] MEDS: FLUCONAZOLE 200 MG/NS 100ML IV 100 MG in PREMIXED 1 EACH IV SCH (20:50)
[2019-06-02] MEDS ORDERED: PHENYTOIN SODIUM EXTENDED 100 MG CAPSULE.SA PO SCH (22:00)
--- NOTE | 2019-06-02 22:00 | NUR ---
HS CARE DONE. SUCTIONED & REPOSITIONED W/ HOB ELEVATED.
--- NOTE | 2019-06-02 23:31 | NUR ---
PATIENT WAS RECIEVED ON JACOBSEN VENT, ORALLY INTUBATED - 7.5 ETT; APPROX. 23CM AT THE LIP. SHE IS TOLERATING VENT WELL WITH ORDERED SETTINGS: AC 12, VT 500 PEEP +5, FIO2 40%. VENT ALARMS CHECKED, ARE ON AND AUDIBLE. SUCTIONED SMALL AMOUNT OF THIN, PALE YELLOW SECRETIONS. ETT IS PATENT AND SECURED VIA ANCHOR FAST WITH BITE BLOCK. AMBU BAG IS AT BEDSIDE. WILL CONTINUE TO MONITOR THROUGHOUT SHIFT.
[2019-06-03] VITALS (88 sets, daily range): BP systolic 96–118; BP diastolic 45–71
[2019-06-03] MEDS: IV NS 1000 ML 1,000 ML IV PRN ×2 (00:40→16:57)
--- NOTE | 2019-06-03 04:00 | NUR ---
AM CARE DONE. ORAL CARE DONE.REPOSITIONED ON HER BACK FOR CXR.
[2019-06-03 04:56] LABS: BASOPHILS # (AUTO) 0.2 K/uL (0.0-8.0); EOSINOPHILS # (AUTO) 1.1 K/uL (0.0-0.7); EOSINOPHILS % (AUTO) 5.3 % (0.0-7.0); HEMOGLOBIN 9.4 g/dL (10.9-14.3); LYMPHOCYTES # (AUTO) 3.4 K/uL (20.0-40.0); LYMPHOCYTES % (AUTO) 17.1 % (20.5-51.5); MEAN CORPUSCULAR HEMOGLOBIN 33.2 uug (24.7-32.8); MEAN CORPUSCULAR HGB CONC 32 g/dL (32.3-35.6); MEAN CORPUSCULAR VOLUME 102.3 fL (75.5-95.3); MONOCYTES # (AUTO) 3.9 K/uL (2.0-10.0); MONOCYTES % (AUTO) 19.4 % (0.0-11.0); NEUTROPHILS # (AUTO) 11.4 K/uL (1.8-8.9); NEUTROPHILS % (AUTO) 57.2 % (38.5-71.5); PLATELET COUNT (AUTO) 333 K/uL (179-408); RED BLOOD CELL COUNT(AUTO) 2.84 MIL/uL (3.63-4.92)
[2019-06-03 05:11] LABS: CREATININE 1.9 mg/dL (0.6-1.3); MAGNESIUM 2.7 mg/dL (1.8-2.4); PHOSPHOROUS 6.5 mg/dL (2.5-4.9); POTASSIUM 3.9 mmol/L (3.5-5.1); VANCOMYCIN,RANDOM 30.2 ug/mL (18.0-26.0)
[2019-06-03] MEDS: PHENYTOIN 100 MG/4 ML UDC NG SCH ×3 (05:41→21:36)
[2019-06-03] MEDS: CEFEPIME HCL 1 G in IV DEXTROSE 5% 50 ML IV SCH ×3 (05:41→21:33)
--- NOTE | 2019-06-03 06:10 | NUR ---
REPOSITIONED ON HER SIDE W/ HOB ELEVATED.
--- NOTE | 2019-06-03 07:15 | NUR ---
PATIENT WAS RECIEVED ON JACOBSEN VENT, ORALLY INTUBATED - 7.5 ETT; APPROX. 23CM AT THE LIP BLOOD NOTED IN MOUTH AND LIPS ON INITIAL ASSESSMENT, SUCTIONED PATIENT MOUTH AND OBSERVED LEFT LIP SWELLING/BLEEDING. SHE IS TOLERATING VENT WELL WITH ORDERED SETTINGS: AC 12, VT 500 PEEP +5, FIO2 40%. VENT ALARMS CHECKED, ARE ON AND AUDIBLE. ETT IS PATENT AND SECURED VIA ANCHOR FAST WITH BITE BLOCK. AMBU BAG IS AT BEDSIDE. WILL CONTINUE TO MONITOR THROUGHOUT SHIFT. PATIENT HAS RECTAL TUBE WITH VISIBLE BLOOD, AND MOREL DRAINING. AIR MATTRESS INFLATED. SCD'S ON.
--- NOTE | 2019-06-03 07:30 | NUR ---
Pt received orally intubated with 7.5 ETT secured at 23cm lip line and continuous mechanical ventilation with ordered settings. Pt is on Lou vent with ordered settings of A/C-12, VT-500, PEEP+5, FIO2-40% Tolerating vent settings well. Sxn'd small amounts of thick yellowish secretions. Oral care done. ETT moved periodically per hospital policy. Pt tolerating vent settings well. Oral airway removed. Pt has a loose tooth and some cuts on her lips. RN Tisha aware. Vent alarm parameters checked, on and audible. Vent plugged into red emergency outlet. Bag/valve/mask at bedside. Will continue to monitor.
[2019-06-03 07:37] LABS: EOSINOPHILS % (MANUAL) 4 % (0-8); LYMPHOCYTES % (MANUAL) 18 % (20-40); MONOCYTES % (MANUAL) 18 % (2-10); NEUTROPHILS % (MANUAL) 60 % (42-75)
--- NOTE | 2019-06-03 09:04 | NUR ---
Patient seen by Dr. Tirado, will contact when patients family arrives for family conference.
[2019-06-03] MEDS ORDERED: PHYTONADIONE 10 MG/1 ML AMPUL SQ ONE (09:15)
[2019-06-03] MEDS: PANTOPRAZOLE SODIUM 40 MG VIAL IV SCH ×2 (09:44→21:35)
[2019-06-03] MEDS: LEVETIRACETAM 500 MG/5 ML LIQUID UDC GT SCH ×2 (09:44→21:38)
[2019-06-03] MEDS: THIAMINE HCL 100 MG TABLET NG SCH (09:45)
[2019-06-03] MEDS: MULTIVITAMINS,THERAPEUTIC TABLET NG SCH (09:45)
[2019-06-03] MEDS: LACTULOSE 20 G/30 ML LIQUID UDC NG SCH ×3 (09:45→17:19)
[2019-06-03] MEDS: FOLIC ACID 1 MG TABLET NG SCH (09:45)
--- NOTE | 2019-06-03 09:50 | NUR ---
patients son met with Dr. Tirado to discuss future plan of care. Dr. Izquierdo and Dr. Tirado met for collaborating plan.
--- NOTE | 2019-06-03 10:00 | NUR ---
Marie from surgery saw patient's wound for follow up.
[2019-06-03] MEDS: CLOTRIMAZOLE 1% CREAM 30 GM TUBE TOP SCH ×2 (10:12→17:20)
[2019-06-03] MEDS: SILVER SULFADIAZINE 1% CREAM 50 GM TP SCH ×2 (10:12→21:56)
--- NOTE | 2019-06-03 11:07 | NUR ---
CLINICAL PHARMACY NOTE:VANCOMYCIN DOSING S: To continue vancomycin dosing on 54 y/o female for documented infection (per ID note-Septic shock, Acute resp failure ? aspiration event) O: Temp 98.6 BUN 72 Scr 1.9 WBC 20 wt 81.6kg ht 170 cm Trough on 05/30 at 1030: 23 Trough on 06/02 @1730: 33.8 Trough today with am labs: 30.2 Next trough pending tomorrow with am labs Assessment/Plan As renal function continues to decrease and levels remain supratherapeutic, will continue to hold regimen for further dosing. Next level ordered for tomorrow with am labs. Will check when available and adjust or re-dose as appropriate. Will otherwise follow
[2019-06-03] MEDS: PROPOFOL 100 ML IV PRN (11:28)
--- NOTE | 2019-06-03 11:37 | NUR ---
Contacted Dr. Albarran about patient clamping down on ET tube and asked if he wanted to restart the Propofol, he stated that it's okay to start till morning if needed.
--- NOTE | 2019-06-03 12:20 | NUR ---
patient seen by Dr. [facility].
[2019-06-03] MEDS: NOREPINEPHRINE BITARTRATE 8 MG in IV DEXTROSE 5% 500 ML IV PRN (15:22)
--- NOTE | 2019-06-03 18:52 | NUR ---
PATIENT IS OBTUNDED RESPONDING TO DEEP PAINFUL STIMULI. ORALLY INTUBATED TO VENT. AC-12, TV-500,FIO2-40%, PEEP-+5 W/ O2 SAT 99%.NGT ON LEFT NARES IN PLACE &CLAMPED. SUCTIONED VIA ETT & OROPHARYNGEALLY W/ MOD THICK BLOOD TINGED MUCOUS. IVF D51/2NS @ 75CC/HR.VIA R INTERNAL JUJULAR TLC. ON LEVOPHED DRIP @ 8MCQ/MIN., AND PROPOFOL @7 MCG/kG/mIN FLEXISEAL INTACT W/ BLACK STOOL LIQUID. REPOSITIONED ON HER BACK W/ HOB ELEVATED.
--- NOTE | 2019-06-03 19:45 | NUR ---
DR CUMMINGS IS HERE TO SEE PATIENT , GIVEN AN UPDATE ON PATIENT'S CONDITION
--- NOTE | 2019-06-03 20:00 | NUR ---
MILD TWICHING OF FACE NOTED FOR 5 SECONDS
[2019-06-03] MEDS: FLUCONAZOLE 200 MG/NS 100ML IV 100 MG in PREMIXED 1 EACH IV SCH (21:35)
--- NOTE | 2019-06-03 22:00 | NUR ---
NO SEIZURE NOTED
[2019-06-04] VITALS (93 sets, daily range): BP systolic 85–135; BP diastolic 39–78
--- NOTE | 2019-06-04 02:00 | NUR ---
NO SEIZURE NOTED
--- NOTE | 2019-06-04 02:37 | NUR ---
PT ON CONT JACOBSEN VENT WITH 7.5 ET/TUBE IN PLACE AND SECURED, WITH ANCHOR FAST, ROTATE TO DIFFERENT POSITION Q2 HOURS, SUCTIONED OIGHT PALE YELL TINGE SECRETIONS, PT SEDATED, PT DOES ASSIST AT TIMES, NO VENT CHANGES MADE. Maame DUQUEP Addendum: 06/04/19 at 0239 by SAMEERA LI RT Amended: Links added.
--- NOTE | 2019-06-04 02:58 | NUR ---
* Maintains patent airway * Evidences no adventitious breath sounds * Maintains vital signs WNL suction intermittently orally Addendum: 06/04/19 at 0259 by ALBERTO GREENWOOD RN Amended: Kaiden added. Addendum: 06/04/19 at 300 thao GREENWOOD RN Amended: Kaiden added. Addendum: 06/04/19 at 030 thao GREENWOOD RN Amended: Links added.
--- NOTE | 2019-06-04 03:00 | NUR ---
Exhibits granulation/healing at site * Exhibits decreased drainage at site * Exhibits a decrease in lesion size * Maintains nutritional status * Maintains hydration status keep the patient dry and clean and frequent repositioning Addendum: 06/04/19 at 0301 by ALBERTO GREENWOOD RN Amended: Links added. Addendum: 06/04/19 at 0302 by ALBERTO GREENWOOD RN Amended: Links added.
--- NOTE | 2019-06-04 03:02 | NUR ---
* Maintains vital signs WNL * Maintains optimal lab values patient is on diferent antibiotics Addendum: 06/04/19 at 0302 by ALBERTO GREENWOOD RN Amended: Links added.
--- NOTE | 2019-06-04 04:00 | NUR ---
NO SEIZURE NOTED
[2019-06-04 05:20] LABS: BASOPHILS # (AUTO) 0.1 K/uL (0.0-8.0); BASOPHILS % (AUTO) 0.8 % (0.0-2.0); EOSINOPHILS # (AUTO) 1.3 K/uL (0.0-0.7); EOSINOPHILS % (AUTO) 7.8 % (0.0-7.0); HEMATOCRIT 29.3 % (31.2-41.9); HEMOGLOBIN 9.4 g/dL (10.9-14.3); LYMPHOCYTES # (AUTO) 2.6 K/uL (20.0-40.0); LYMPHOCYTES % (AUTO) 16.1 % (20.5-51.5); MEAN CORPUSCULAR HGB CONC 32 g/dL (32.3-35.6); MEAN CORPUSCULAR VOLUME 102.5 fL (75.5-95.3); MONOCYTES # (AUTO) 2.4 K/uL (2.0-10.0); MONOCYTES % (AUTO) 14.9 % (0.0-11.0); NEUTROPHILS # (AUTO) 9.9 K/uL (1.8-8.9); NEUTROPHILS % (AUTO) 60.4 % (38.5-71.5); PLATELET COUNT (AUTO) 326 K/uL (179-408); RED BLOOD CELL COUNT(AUTO) 2.86 MIL/uL (3.63-4.92); WHITE BLOOD COUNT (AUTO) 16.3 K/uL (3.8-11.8)
[2019-06-04 05:23] LABS: MAGNESIUM 2.9 mg/dL (1.8-2.4); POTASSIUM 3.5 mmol/L (3.5-5.1)
[2019-06-04] MEDS: PHENYTOIN 100 MG/4 ML UDC NG SCH ×3 (06:30→21:28)
[2019-06-04] MEDS: CEFEPIME HCL 1 G in IV DEXTROSE 5% 50 ML IV SCH ×3 (06:30→21:27)
--- NOTE | 2019-06-04 07:20 | NUR ---
Received report from warehouse worker 2nd shift nurse, patient on landry vent ac 12, peep 5, fio2 40%, TV 500. Air mattress inflated, IV fluids running @50cc/hr, Levophed @ 8mcg, Propofol @5, patient is sinus yakelin, and has course lung sounds. Pulses palpable but weak, pitting edema noted on all four extremities. Peck draining, rectal tube in place. with dark black liquid stool. Reviewed labs. Will continue to monitor.
--- NOTE | 2019-06-04 08:10 | NUR ---
After observing sustained yakelin cardia, call made to [facility] cardiology. Awaiting call back.
--- NOTE | 2019-06-04 08:48 | NUR ---
Contacted [facility] cardiology again, awaiting call back.
[2019-06-04] MEDS: FOLIC ACID 1 MG TABLET NG SCH (09:06)
[2019-06-04] MEDS: LEVETIRACETAM 500 MG/5 ML LIQUID UDC GT SCH ×2 (09:06→20:35)
[2019-06-04] MEDS: LACTULOSE 20 G/30 ML LIQUID UDC NG SCH ×3 (09:06→16:26)
[2019-06-04] MEDS: PANTOPRAZOLE SODIUM 40 MG VIAL IV SCH ×2 (09:06→20:36)
[2019-06-04] MEDS: MULTIVITAMINS,THERAPEUTIC TABLET NG SCH (09:07)
[2019-06-04] MEDS: SILVER SULFADIAZINE 1% CREAM 50 GM TP SCH ×2 (09:07→20:37)
[2019-06-04] MEDS: THIAMINE HCL 100 MG TABLET NG SCH (09:07)
[2019-06-04] MEDS: CLOTRIMAZOLE 1% CREAM 30 GM TUBE TOP SCH ×2 (09:08→16:27)
[2019-06-04 09:09] LABS: EOSINOPHILS % (MANUAL) 7 % (0-8); LYMPHOCYTES % (MANUAL) 17 % (20-40); MONOCYTES % (MANUAL) 16 % (2-10); NEUTROPHILS % (MANUAL) 60 % (42-75)
--- NOTE | 2019-06-04 09:20 | NUR ---
RECEIVED CALL FROM DR. PAULSON NO ORDERS AT THIS TIME.
--- NOTE | 2019-06-04 09:29 | NUR ---
CLINICAL PHARMACY NOTE:VANCOMYCIN DOSING S: To continue vancomycin dosing on 54 y/o female for documented infection (per ID note-Septic shock, Acute resp failure ? aspiration event) O: Temp 98.2 BUN 85 Scr 2.0 WBC 16.3 wt 81.6kg ht 170 cm Trough on 05/30 at 1030: 23 Trough on 06/02 @1730: 33.8 random on 06/03 @0600 30.2 random on 06/04 at 0600:25 Assessment/Plan As renal function continues to decrease and levels remain supratherapeutic, will continue to hold regimen for further dosing. Next level ordered for tomorrow with am labs. Will check when available and adjust or re-dose as appropriate. Will otherwise follow
[2019-06-04] MEDS: IV NS 1000 ML 1,000 ML IV PRN (10:17)
--- NOTE | 2019-06-04 10:35 | NUR ---
Patient is having vitals changes, tachypneic, tachy cardic 135, and appears to be in distress. Patient restarted on propofol drip.
[2019-06-04] MEDS: PROPOFOL 100 ML IV PRN (10:41)
[2019-06-04] MEDS ORDERED: AMIODARONE HCL IV 150 MG in IV DEXTROSE 5% 100 ML IV ONE (11:30)
[2019-06-04] MEDS: AMIODARONE HCL IV 900 MG in IV DEXTROSE 5% 482 ML IV PRN (12:32)
--- NOTE | 2019-06-04 13:31 | NUR ---
patient converted to sinus yakelin from afib.
--- NOTE | 2019-06-04 14:15 | NUR ---
Patient seen by Tamara JACOBS.
--- NOTE | 2019-06-04 15:27 | NUR ---
patient seen by Dr. Izquierdo, and Dr. Albarran
--- NOTE | 2019-06-04 20:00 | NUR ---
NO SEIZURE NOTED , MOUTH CLEANSED
[2019-06-04] MEDS: MICAFUNGIN SODIUM 100 MG in IV NORMAL SALINE 100 ML IV SCH (20:33)
--- NOTE | 2019-06-04 20:54 | NUR ---
PT ON CONT JACOBSEN VENT WITH 7.5 ET/TUBE IN PLACE AND SECURED, WITH ANCHOR FAST, PT DOES ASSIST AT TIMES, PT WITH LOW HR 49, FULL CODE STATUS, PT VERY CRITICAL CONDITION, SUCTION LIGHT PALE YELL TINGE SECRETIONS, SUCTION MOUTH WITH YANKAUER, TOLL WELL, NO VENT CHANGES MADE AT THIS TIME, ALL VENT ALARMS GOOD, SAT 100%, AMBU BAG AT BEDSIDE.Maame DUQUEP Addendum: 06/04/19 at 2056 by SAMEERA LI RT Amended: Links added.
--- NOTE | 2019-06-04 22:00 | NUR ---
NO SEIZURE NOTED
[2019-06-04] MEDS: NOREPINEPHRINE BITARTRATE 8 MG in IV DEXTROSE 5% 500 ML IV PRN (23:30)
[2019-06-05] VITALS (89 sets, daily range): BP systolic 86–125; BP diastolic 41–77
--- NOTE | 2019-06-05 | NUR ---
NO SEIZURE NOTED
--- NOTE | 2019-06-05 01:07 | NUR ---
Maintains patent airway * Evidences no adventitious breath sounds * Maintains vital signs WNL Addendum: 06/05/19 at 0108 by ALBERTO GREENWOOD RN Amended: Links added.
--- NOTE | 2019-06-05 01:07 | NUR ---
Maintains vital signs WNL during activity Addendum: 06/05/19 at 0108 by ALBERTO GREENWOOD RN Amended: Links added.
--- NOTE | 2019-06-05 01:11 | NUR ---
* Exhibits granulation/healing at site * Exhibits decreased drainage at site * Exhibits no s/s of infection * Exhibits a decrease in lesion size * Maintains nutritional status Addendum: 06/05/19 at 0111 by ALBERTO GREENWOOD RN Amended: Links added.
--- NOTE | 2019-06-05 02:00 | NUR ---
NO SEIZURE NOTED
--- NOTE | 2019-06-05 02:49 | NUR ---
Maintains patent airway * Evidences no adventitious breath sounds * Maintains vital signs WNL Addendum: 06/05/19 at 0250 by ALBERTO GREENWOOD RN Amended: Kaiden added. Addendum: 06/05/19 at 250 by ALBERTO GREENWOOD RN Amended: Kaiden added. Addendum: 06/05/19 at 250 by ALBERTO GREENWOOD RN Amended: Links added.
--- NOTE | 2019-06-05 02:50 | NUR ---
* Maintains vital signs WNL * Maintains optimal lab values PATIENT IS ON ANTIBIOTICS Addendum: 06/05/19 at 0251 by ALBERTO GREENWOOD RN Amended: Kaiden added. Addendum: 06/05/19 at 250 by ALBERTO GREENWOOD RN Amended: Kaiden added.
--- NOTE | 2019-06-05 02:51 | NUR ---
Exhibits granulation/healing at site * Exhibits decreased drainage at site * Exhibits no s/s of infection * Exhibits a decrease in lesion size * Maintains nutritional status Addendum: 06/05/19 at 0251 by ALBERTO GREENWOOD RN Amended: Links added.
[2019-06-05 05:24] LABS: BASOPHILS # (AUTO) 0.2 K/uL (0.0-8.0); BASOPHILS % (AUTO) 1.2 % (0.0-2.0); EOSINOPHILS # (AUTO) 1.4 K/uL (0.0-0.7); EOSINOPHILS % (AUTO) 8.4 % (0.0-7.0); HEMATOCRIT 28.7 % (31.2-41.9); HEMOGLOBIN 9.1 g/dL (10.9-14.3); LYMPHOCYTES # (AUTO) 2.9 K/uL (20.0-40.0); LYMPHOCYTES % (AUTO) 17.5 % (20.5-51.5); MEAN CORPUSCULAR HEMOGLOBIN 32.9 uug (24.7-32.8); MEAN CORPUSCULAR HGB CONC 32 g/dL (32.3-35.6); MEAN CORPUSCULAR VOLUME 103.6 fL (75.5-95.3); MONOCYTES # (AUTO) 2.3 K/uL (2.0-10.0); MONOCYTES % (AUTO) 13.8 % (0.0-11.0); NEUTROPHILS # (AUTO) 9.8 K/uL (1.8-8.9); NEUTROPHILS % (AUTO) 59.1 % (38.5-71.5); PLATELET COUNT (AUTO) 355 K/uL (179-408); RED BLOOD CELL COUNT(AUTO) 2.77 MIL/uL (3.63-4.92); WHITE BLOOD COUNT (AUTO) 16.6 K/uL (3.8-11.8)
[2019-06-05] MEDS: CEFEPIME HCL 1 G in IV DEXTROSE 5% 50 ML IV SCH ×3 (06:20→21:22)
[2019-06-05 06:23] LABS: BILIRUBIN,TOTAL 2.2 mg/dL (0.2-1.0); MAGNESIUM 2.8 mg/dL (1.8-2.4); PHOSPHOROUS 6.2 mg/dL (2.5-4.9); POTASSIUM 3.3 mmol/L (3.5-5.1); TOTAL PROTEIN, SERUM 6.9 g/dL (6.4-8.2); VANCOMYCIN,RANDOM 20.6 ug/mL (18.0-26.0)
[2019-06-05] MEDS: PHENYTOIN 100 MG/4 ML UDC NG SCH ×3 (06:24→21:22)
--- NOTE | 2019-06-05 07:10 | NUR ---
DR NAYLOR WAS CALLED TO INFORM OF RECENT LAB WORK TODAY
--- NOTE | 2019-06-05 07:20 | NUR ---
Received patient on landry vent a/c 12, peep 5, tv 500, fio2 40%, patient on propofol 3, amio 0.5, d5ns 75cc, Cardiac rhythm sinus Bradycardia @ 50bpm, BP 99/50. Patient obtunded, no eye opening or response on stimulation. Patient has godfrey draining and rectal tube with black stool. NG tube in place. Will continue to monitor.
[2019-06-05 08:43] LABS: ABG BASE EXCESS -12.7 mmol/L; ABG HCO3 11.7 mmol/L; ABG PH 7.304 (7.350-7.450); ABG PO2 65.6 mmHg (75.0-100.0); ABG SITE LEFT RADIAL; ABG TOTAL HEMOGLOBIN 13.8 G/dL (12.0-16.0); COHb 1.5 % (0.5-1.5); MetHb 0.3 % (0.0-1.5); O2Hb 90.4 % (94.0-97.0); VENT MODE VENT - A/C; VT, ABG 500 mL
[2019-06-05] MEDS: MULTIVITAMINS,THERAPEUTIC TABLET NG SCH (09:53)
[2019-06-05] MEDS: FOLIC ACID 1 MG TABLET NG SCH (09:53)
[2019-06-05] MEDS: LACTULOSE 20 G/30 ML LIQUID UDC NG SCH ×3 (09:53→17:55)
[2019-06-05] MEDS: THIAMINE HCL 100 MG TABLET NG SCH (09:53)
[2019-06-05] MEDS: PANTOPRAZOLE SODIUM 40 MG VIAL IV SCH ×2 (09:53→20:23)
[2019-06-05] MEDS: SILVER SULFADIAZINE 1% CREAM 50 GM TP SCH ×2 (10:02→20:23)
[2019-06-05] MEDS: CLOTRIMAZOLE 1% CREAM 30 GM TUBE TOP SCH ×2 (10:03→17:55)
[2019-06-05] MEDS: LEVETIRACETAM 500 MG/5 ML LIQUID UDC GT SCH ×2 (10:05→20:21)
--- NOTE | 2019-06-05 12:00 | NUR ---
contacted Dr. Salgado to ask about continuation of Amiodaron, orders received to stop for now.
[2019-06-05] MEDS: IV NS 1000 ML 1,000 ML IV PRN (15:08)
[2019-06-05] MEDS ORDERED: POTASSIUM CHLORIDE 50 ML IV SCH (15:15)
--- NOTE | 2019-06-05 15:30 | NUR ---
Patient desaturated on left side, repositioned patient and RT increased oxygen to 80%. After a short period of time, patients )2 sat returned to 100%. Tried to decrease back to 40% and patient remains with good saturations >97%
--- NOTE | 2019-06-05 16:01 | NUR ---
CLINICAL PHARMACY NOTE:VANCOMYCIN DOSING S: To continue vancomycin dosing on 54 y/o female for documented infection (per ID note-Septic shock, Acute resp failure ? aspiration event) O: Temp 97.9 BUN 82 Scr 2.0 WBC 16.6 wt 81.6kg ht 170 cm Trough on 05/30 at 1030: 23 Trough on 06/02 @1730: 33.8 random on 06/03 @0600 30.2 random on 06/04 at 0600:25 random on 06/05 at 0600: 20.6 Assessment/Plan As renal function continues to decrease and levels remain supratherapeutic, will continue to hold regimen for further dosing. Next level ordered for tomorrow with am labs. Will check when available and adjust or re-dose as appropriate. Will otherwise follow
[2019-06-05] MEDS: AMIODARONE HCL IV 900 MG in IV DEXTROSE 5% 482 ML IV PRN (17:57)
[2019-06-05] MEDS: NOREPINEPHRINE BITARTRATE 8 MG in IV DEXTROSE 5% 500 ML IV PRN (17:58)
--- NOTE | 2019-06-05 19:30 | NUR ---
Report given to maintenance technician 3rd shift nurse, patient continues to be on landry vent a/c 12, TV 500peep 5, fio2 40%. Amioderan 0.5 as ordered after patient went into afib (orders received from Dr. Layne to restart Amiodaron, without a bolus @0.5). Patient is on levophed 9 mcg, diprivan 5, NS @75cc. scd's on, air mattress inflated, godfrey draining and rectal tube in place.
--- NOTE | 2019-06-05 19:35 | NUR ---
Upon initial assessment patient received on ventilator with A/C of 12, tv 500, 40% FIO2, and Peep +5. propofol running at 5mcg/kg/min. pt's oral cavity noted to be bleeding patient was also noted to be bitting her tongue; with RT present ETT repositioned oral care provided, and propofol titrated as needed. 0830 propofol up to 20mckg/kg/min/ saturation sustained above 98%. Will continue to monitor.
--- NOTE | 2019-06-05 19:35 | NUR ---
FITO Valente in the unit to see and examine patient, report given orders received, see hx.
[2019-06-05] MEDS: MICAFUNGIN SODIUM 100 MG in IV NORMAL SALINE 100 ML IV SCH (20:22)
[2019-06-06] VITALS (87 sets, daily range): BP systolic 83–116; BP diastolic 40–75
[2019-06-06] MEDS: PROPOFOL 100 ML IV PRN ×3 (01:16→23:26)
--- NOTE | 2019-06-06 03:58 | NUR ---
RECEIVED PATIENT ORALLY INTUBATED WITH A SIZE 7.5 ET TUBE. ET TUBE IS SECURED WITH ANCHOR FAST AT 23 CM LIP LINE. PATIENT IS ON A JACOBSEN VENTILATOR WITH THE FOLLOWING SETTINGS THAT ARE CHARTED ON THE MECHANICAL VENTILATOR NOTES. PT HAS A LOOSE TOOTH AND SOME CUTS ON HER LIPS. RN MERVIN IS AWARE. ORAL CARE DONE. AMBU BAG IS BY BEDSIDE. VENTILATOR ALARMS ARE ON AND AUDIBLE. VENTILATOR IS PLUGGED IN THE RED OUTLET. PATIENT IS TOLERATING CURRENT VENTILATOR SETTINGS WELL A THIS TIME. NO CHANGES. NO SOB NOTED AT THIS TIME. WILL CONTINUE TO MONITOR.
[2019-06-06] MEDS: NOREPINEPHRINE BITARTRATE 8 MG in IV DEXTROSE 5% 500 ML IV PRN (04:50)
[2019-06-06] MEDS: PHENYTOIN 100 MG/4 ML UDC NG SCH ×3 (05:00→21:03)
[2019-06-06] MEDS: CEFEPIME HCL 1 G in IV DEXTROSE 5% 50 ML IV SCH ×3 (05:00→22:42)
[2019-06-06 05:05] LABS: BASOPHILS # (AUTO) 0.2 K/uL (0.0-8.0); BASOPHILS % (AUTO) 1.4 % (0.0-2.0); EOSINOPHILS # (AUTO) 1.7 K/uL (0.0-0.7); HEMATOCRIT 29.4 % (31.2-41.9); HEMOGLOBIN 9.4 g/dL (10.9-14.3); LYMPHOCYTES # (AUTO) 3.7 K/uL (20.0-40.0); LYMPHOCYTES % (AUTO) 22.1 % (20.5-51.5); MEAN CORPUSCULAR HEMOGLOBIN 33.3 uug (24.7-32.8); MEAN CORPUSCULAR HGB CONC 32 g/dL (32.3-35.6); MEAN CORPUSCULAR VOLUME 104.4 fL (75.5-95.3); MONOCYTES # (AUTO) 2.5 K/uL (2.0-10.0); MONOCYTES % (AUTO) 14.9 % (0.0-11.0); NEUTROPHILS # (AUTO) 8.6 K/uL (1.8-8.9); NEUTROPHILS % (AUTO) 51.6 % (38.5-71.5); PLATELET COUNT (AUTO) 409 K/uL (179-408); RED BLOOD CELL COUNT(AUTO) 2.81 MIL/uL (3.63-4.92); WHITE BLOOD COUNT (AUTO) 16.6 K/uL (3.8-11.8)
[2019-06-06 05:17] LABS: BILIRUBIN,DIRECT 0.9 mg/dL (0.0-0.2); CREATININE 2.1 mg/dL (0.6-1.3); MAGNESIUM 2.7 mg/dL (1.8-2.4); TOTAL PROTEIN, SERUM 7.3 g/dL (6.4-8.2)
[2019-06-06] MEDS: IV NS 1000 ML 1,000 ML IV PRN ×2 (06:07→21:11)
[2019-06-06 08:09] LABS: ABG BASE EXCESS -14.4 mmol/L; ABG HCO3 11.1 mmol/L; ABG PCO2 25.1 mmHg (35.0-45.0); ABG PH 7.263 (7.350-7.450); ABG PO2 88.6 mmHg (75.0-100.0); ABG SITE LEFT RADIAL; ABG TOTAL HEMOGLOBIN 10.1 G/dL (12.0-16.0); COHb 0.9 % (0.5-1.5); MetHb 0.3 % (0.0-1.5); O2Hb 95.3 % (94.0-97.0); VENT MODE VENT - A/C; VT, ABG 500 mL
[2019-06-06] MEDS: FOLIC ACID 1 MG TABLET NG SCH (08:58)
[2019-06-06] MEDS: MULTIVITAMINS,THERAPEUTIC TABLET NG SCH (08:58)
[2019-06-06] MEDS: LACTULOSE 20 G/30 ML LIQUID UDC NG SCH ×3 (08:58→17:04)
[2019-06-06] MEDS: PANTOPRAZOLE SODIUM 40 MG VIAL IV SCH ×2 (08:58→20:57)
[2019-06-06] MEDS: THIAMINE HCL 100 MG TABLET NG SCH (08:58)
[2019-06-06] MEDS: LEVETIRACETAM 500 MG/5 ML LIQUID UDC GT SCH ×2 (08:59→20:57)
[2019-06-06] MEDS: SILVER SULFADIAZINE 1% CREAM 50 GM TP SCH ×2 (09:00→21:03)
[2019-06-06] MEDS: CLOTRIMAZOLE 1% CREAM 30 GM TUBE TOP SCH ×2 (09:00→17:05)
[2019-06-06] MEDS ORDERED: POTASSIUM CHLORIDE 20 MEQ POWDER PACKET NG ONE ×2 (10:45→13:00)
[2019-06-06] MEDS: ALBUMIN HUMAN 25% 25 GM in PREMIXED 1 EACH IV SCH ×3 (12:59→23:53)
[2019-06-06] MEDS: NOREPINEPHRINE BITARTRATE 16 MG in IV DEXTROSE 5% 500 ML IV PRN (17:01)
--- NOTE | 2019-06-06 18:00 | NUR ---
Status qou, no change in condition. Amiodarone discontinued, HR down in the 40"s. Dr Layne is aware.
--- NOTE | 2019-06-06 19:23 | NUR ---
ID specialist, STEVIE JACOBS, came to see and evaluate pt. Report given. No new orders received. Continue to monitor.
[2019-06-06 19:47] LABS: *BILIRUBIN,URIN NEGATIVE (NEGATIVE); *BLOOD, URINE 2+ (NEGATIVE); *CLARITY,URINE SLIGHTLY CLOUDY (CLEAR); *COLOR,URINE YELLOW (YELLOW); *KETONES,URINE NEGATIVE (NEGATIVE); *UROBILINOGEN,URINE 0.2 E.U./dl (NORMAL); LEUKOCYTE ESTERASE ,URINE 1+ (NEGATIVE); NITRITE, URINE NEGATIVE (NEGATIVE); PH,URINE 5.5 (5.0-8.0); UGLUCOSE NEGATIVE (NEGATIVE)
[2019-06-06 19:56] LABS: *CREATININE,URINE 105.5 mg/dL (30-125); *URINE TOTAL PROTEIN RANDOM 186.4 mg/dL (<150/24HR)
--- NOTE | 2019-06-06 20:00 | NUR ---
Received pt orally intubated with vent settings: AC 12, TV 500, PEEP 5, FIO2 40%. Pt unable to follow commands, pupils reactive but sluggish. Upper and lower extremities flaccid. O2 sats up to 96%, SB on monitor. No acute distress noted. Maintenance IVF running at 75 cc/hr. LEVOPHED 16 mcg/min, Propofol 20 mcg/min. Soft, distended abdomen. F/C and Flexiseal intact and patent. Pt turned and repositioned. Safety and aspiration precautions maintained. Continue plan of care. Addendum: 06/07/19 at 0136 by KATERYNA MICHAELS RN @2014 Sedation vacation done. After 10 minutes, pt unable to follow commands but withdraws to painful stimuli. Continue PROPOFOL drip as ordered.
[2019-06-06 20:37] LABS: SQUAMOUS EPITHELIAL CELL,UR FEW /HPF (NONE SEEN); WBC,URINE 20-50 /HPF (0-3); YEAST,URINE FEW /HPF (NONE SEEN)
[2019-06-06 20:38] LABS: MUCUS,URINE MODERATE /LPF (0-FEW); URINE AMORPHOUS URATE MODERATE /HPF
[2019-06-06] MEDS: MICAFUNGIN SODIUM 100 MG in IV NORMAL SALINE 100 ML IV SCH (20:57)
--- NOTE | 2019-06-06 21:30 | NUR ---
RECEIVED PT ON CONTINUOUS VENT. TOLERATING CURRENT VENT SETTINGS AT THIS TIME. SUCTION PRN. NO VENT CHANGES MADE AT THIS TIME. WILL CONTINUE TO MONITOR.
[2019-06-07] VITALS (43 sets, daily range): BP systolic 72–133; BP diastolic 32–120
[2019-06-07] MEDS: ALBUMIN HUMAN 25% 25 GM in PREMIXED 1 EACH IV SCH (05:18)
[2019-06-07] MEDS: CEFEPIME HCL 1 G in IV DEXTROSE 5% 50 ML IV SCH (05:18)
[2019-06-07] MEDS: PHENYTOIN 100 MG/4 ML UDC NG SCH (05:19)
[2019-06-07 05:25] LABS: BASOPHILS # (AUTO) 0.4 K/uL (0.0-8.0); BASOPHILS % (AUTO) 2.9 % (0.0-2.0); EOSINOPHILS # (AUTO) 1.8 K/uL (0.0-0.7); EOSINOPHILS % (AUTO) 11.9 % (0.0-7.0); HEMATOCRIT 25.2 % (31.2-41.9); LYMPHOCYTES # (AUTO) 1.9 K/uL (20.0-40.0); LYMPHOCYTES % (AUTO) 12.5 % (20.5-51.5); MEAN CORPUSCULAR HEMOGLOBIN 33.2 uug (24.7-32.8); MEAN CORPUSCULAR HGB CONC 32 g/dL (32.3-35.6); MEAN CORPUSCULAR VOLUME 104.8 fL (75.5-95.3); MONOCYTES # (AUTO) 2.3 K/uL (2.0-10.0); MONOCYTES % (AUTO) 14.9 % (0.0-11.0); NEUTROPHILS # (AUTO) 8.9 K/uL (1.8-8.9); NEUTROPHILS % (AUTO) 57.8 % (38.5-71.5); PLATELET COUNT (AUTO) 354 K/uL (179-408); WHITE BLOOD COUNT (AUTO) 15.4 K/uL (3.8-11.8)
[2019-06-07 05:34] LABS: CREATININE 2.6 mg/dL (0.6-1.3); MAGNESIUM 2.8 mg/dL (1.8-2.4); PHOSPHOROUS 6.4 mg/dL (2.5-4.9); POTASSIUM 3.7 mmol/L (3.5-5.1)
--- NOTE | 2019-06-07 05:45 | NUR ---
Small amount of oral and rectal bleeding noted throughout the shift. AM labs drawn, Hgb 8.0. Will endorse to day shift. Continue to monitor.
--- NOTE | 2019-06-07 06:30 | NUR ---
AM care rendered. No desats noted. Safety and aspiration precautions maintained. Pt repositioned. Will continue to monitor.
[2019-06-07] MEDS: NOREPINEPHRINE BITARTRATE 16 MG in IV DEXTROSE 5% 500 ML IV PRN (07:00)
--- NOTE | 2019-06-07 08:00 | NUR ---
Seen and examined by Dr Tirado with Palliative Comfort Measures orders. All medications discontinued. Awaiting for the family members.
[2019-06-07] MEDS ORDERED: LORAZEPAM 2 MG/1 ML VIAL IV PRN ×2 (08:15)
[2019-06-07] MEDS ORDERED: MORPHINE SULFATE 2 MG/1 ML DISP.SYRIN IV PRN (08:15)
[2019-06-07] MEDS ORDERED: DC PROPOFOL ONCE EXTUBATED XX PRN (08:30)
[2019-06-07] MEDS ORDERED: SCOPOLAMINE HYDROBROMIDE 1.5 MG PATCH TD SCH (09:00)
--- NOTE | 2019-06-07 09:00 | NUR ---
Pt medicated with Morphine Sulfate 1mg slow IVP and Ativan 1mg slow IVP for keeping pt comfortable. Family at the bedside. Levophed and Propofol off as ordered.
--- NOTE | 2019-06-07 09:05 | NUR ---
Terminal extubation done by RT and pt tolerated. Placed on O26L by mask. O2sat is 93-96%. Respiration is shallow but regular. Suction large amount of fresh blood from the mouth post extubation.
[2019-06-07] MEDS: MORPHINE SULFATE 2 MG/1 ML DISP.SYRIN IV PRN ×4 (09:19→22:30)
--- NOTE | 2019-06-07 13:00 | NUR ---
Pt's breathing is getting labored and appears to be in discomforts. Medicated with Morphine 1mg slow IVP for comfort. Pt's status changed to MedSurg per Dr Tirado. Continue to keep pt comfortable
--- NOTE | 2019-06-07 18:30 | NUR ---
Pt appears comfortable. Latest BP is 72/33
--- NOTE | 2019-06-07 21:44 | NUR ---
MONITOR THE PATIENT AND MEDICATE FOR COMFORT MEASURE WITH ATIVAN AND MORPHINE Addendum: 06/07/19 at 2145 by ALBERTO GREENWOOD RN Amended: Links added.
--- NOTE | 2019-06-07 22:00 | NUR ---
DIANNE , CALLED AND GIVEN AN UPDATE ON THE PATIENT'S CONDITION
[2019-06-08] VITALS (11 sets, daily range): BP systolic 44–89; BP diastolic 14–41
--- NOTE | 2019-06-08 06:35 | NUR ---
patient is still labored brathing with gasping alternating with agonal breathing , rij intact and flushed , flexi seal and godfrey intact , mouth is cleaned with moist dressing to clean old blood
--- NOTE | 2019-06-08 07:23 | NUR ---
Received patient on palliative care, on oxygen via FM 6L for comfort; Patient on labor and agonal breathing with saturation fluctuating between 88-90%. flexiseal and godfrey catheter to gravity. 3L RIJ patent and in HL mode. Will continue to monitor.
[2019-06-08] MEDS: MORPHINE SULFATE 2 MG/1 ML DISP.SYRIN IV PRN (10:44)
--- NOTE | 2019-06-08 16:15 | NUR ---
Pt's son and at bedside. Addendum: 06/08/19 at 1639 by MERVIN CALDERON RN At this time both pt's son and verbalized that both of them had spoken with palliative pharmacist critical care and that up to this moment they still need time to take a decision and consent for palliative care.
--- NOTE | 2019-06-08 16:30 | NUR ---
[facility] in the room to examine patient at this time Ms [place] blair informed that Mr. Chauhan pt's son and had verbalized non consent for palliative care at this moment. Ms. Bartholomew placed on the phone and she herself spoke with pt's son Mr. Chauhan and her over the phone. Addendum: 06/08/19 at 1640 by MERVIN CADLERON RN As reported by Ms. Tiki Bartholomew pt. will be reevaluated tomorrow or when son consent for palliative care.
--- NOTE | 2019-06-08 18:28 | NUR ---
[facility] called and spoke with Ms Olmedo called taken over by Cecelia full report given as requested. Reference . And as stated by Cecelia She will call unit for further questions and information patient is a potential donor, they will approach the family when considered appropriate. Information will be endorse to receiving rn. if needed it.
--- NOTE | 2019-06-08 19:32 | NUR ---
Bedside report given to Michael Devine she was endorse body care. Pt's remains left with toe tag attached to toe, body bag, and belongings. Pt's son Tien Skelton signed release of body documents. Currently not at bedside but will be back with a family member as stated.
--- NOTE | 2019-06-08 20:31 | NUR ---
left, answered all questions. 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
== END 2019-06-08 22:05 | disposition expired | DRG 853 ==
LOC: ER 21:22 → TELE3 23:37 → CCU 05-22 13:55 → MEDSURG3 06-08 07:44
PROVIDERS: ADMIT Registered Nurse; ATTEND Nurse Practitioner Acute Care
PROC: 0BH17EZ Insertion of Endotracheal Airway into Trachea, Via Natural or Artificial Opening (ICD-10-PCS; principal; 2019-05-22)
PROC: 5A1955Z Respiratory Ventilation, Greater than 96 Consecutive Hours (ICD-10-PCS; principal; 2019-05-22)
PROC: B548ZZA Ultrasonography of Superior Vena Cava, Guidance (ICD-10-PCS; 2019-05-23)
PROC: 02HV33Z Insertion of Infusion Device into Superior Vena Cava, Percutaneous Approach (ICD-10-PCS; 2019-05-23)
PROC: 30233K1 Transfusion of Nonautologous Frozen Plasma into Peripheral Vein, Percutaneous Approach (ICD-10-PCS; 2019-05-23)
PROC: 30233N1 Transfusion of Nonautologous Red Blood Cells into Peripheral Vein, Percutaneous Approach (ICD-10-PCS; 2019-05-23)
PROC: 0W9B3ZX Drainage of Left Pleural Cavity, Percutaneous Approach, Diagnostic (ICD-10-PCS; 2019-05-27)
PROC: 0W9G3ZZ Drainage of Peritoneal Cavity, Percutaneous Approach (ICD-10-PCS; 2019-05-29)
PROC: 0JBG0ZZ Excision of Right Lower Arm Subcutaneous Tissue and Fascia, Open Approach (ICD-10-PCS; 2019-05-30)
DX: A41.9 Sepsis, unspecified organism (principal); J69.0 Pneumonitis due to inhalation of food and vomit; E43 Unspecified severe protein-calorie malnutrition; N17.0 Acute kidney failure with tubular necrosis; R65.21 Severe sepsis with septic shock; J96.01 Acute respiratory failure with hypoxia; K76.7 Hepatorenal syndrome; D68.4 Acquired coagulation factor deficiency; N39.0 Urinary tract infection, site not specified; Z16.29 Resistance to other single specified antibiotic; Z16.19 Resistance to other specified beta lactam antibiotics; J91.8 Pleural effusion in other conditions classified elsewhere; D62 Acute posthemorrhagic anemia; F10.239 Alcohol dependence with withdrawal, unspecified; E87.0 Hyperosmolality and hypernatremia; E87.2 Acidosis; J98.11 Atelectasis; K76.6 Portal hypertension; B49 Unspecified mycosis; K92.2 Gastrointestinal hemorrhage, unspecified; Z66 Do not resuscitate; Z51.5 Encounter for palliative care; K70.40 Alcoholic hepatic failure without coma; K70.31 Alcoholic cirrhosis of liver with ascites; Y90.0 Blood alcohol level of less than 20 mg/100 ml; B96.20 Unspecified Escherichia coli [E. coli] as the cause of diseases classified elsewhere; F10.21 Alcohol dependence, in remission; R56.9 Unspecified convulsions; E83.42 Hypomagnesemia; E87.6 Hypokalemia; I48.91 Unspecified atrial fibrillation; Z87.891 Personal history of nicotine dependence; R13.10 Dysphagia, unspecified; I67.2 Cerebral atherosclerosis; D75.89 Other specified diseases of blood and blood-forming organs; D63.8 Anemia in other chronic diseases classified elsewhere; B96.89 Other specified bacterial agents as the cause of diseases classified elsewhere
CPT/HCPCS: 32555; 36415; 36600; 70030-TC; 70450; 71045; 74018; 76705; 80307; 83605; 83615; 83690; 83735; 83986; 84100; 84155; 84156; 84165; 84300; 84443; 85025; 85610; 85651; 85730; 86850; 86900; 86901; 86920; 87040; 87070; 87086; 87205; 87400; 93005; 93880; 94002; 94003; A4217; A4663; C1758; C9113; G0378; G0480; J0282; J0330; J0692; J0696; J1165; J1200; J1450; J1940; J1953; J2060; J2248; J2270; J2543; J3370; J3430; J3475; J3480; J3490; J7030; J7040; J7042; J7050; J7060; J7070; P9016-BL; P9017-BL; P9021; P9047